=== PATIENT | female | born 1945 | race African-American/Black ===

== ENCOUNTER 2017-12-23 05:19 | Inpatient (IN) ==
--- NOTE | 2017-12-23 06:36 | XR ---
EXAM DATE: 12/23/2017 6:17 AM EDT AGE/SEX: 72 years / Female INDICATIONS: Chest pain. CLINICAL DATA: This is the patient's initial encounter. Patient reports that signs and symptoms have been present for 1 day and indicates a pain score of 5/10. MEDICAL/SURGICAL HISTORY: None. None. COMPARISON: No prior exams available for comparison. FINDINGS: Diffuse interstitial prominence with left lower lung zone airspace disease and likely trace pleural e ffusion. Cardiac lead is enlarged with indistinct central probably vascularity. Osseous structures ar e intact. CONCLUSION: 1. Cardiomegaly with mild positive fluid balance. 2. Left lower lobe airspace disease and likely trace left pleural effusion. Electronically signed by: Abel Ch MD 12/23/2017 6:35 AM EDT
[2017-12-23 06:45] LABS: Alkaline Phosphatase 98 U/L (45-117); Troponin I 0.05 ng/mL (0.02-0.05)
[2017-12-23 06:45] LABS: Baso % (Auto) 0.2 % (0.0-2.0); Eos % (Auto) 0.7 % (0.0-4.0); Hematocrit 42.8 % (35.0-46.0); Hemoglobin 13.3 gm/dL (11.6-15.3); Lymph # (Auto) 1.3 th/mm3 (1.0-4.8); Lymph % (Auto) 18.1 % (9.0-44.0); Mean Corpuscular Hemoglobin 29.4 pg (27.0-34.0); Mean Corpuscular Volume 94.8 fL (80.0-100.0); Mean Platelet Volume 10.5 fL (7.0-11.0); Mono # (Auto) 0.6 th/mm3 (0.0-0.9); Mono % (Auto) 8.2 % (0.0-8.0); Neut # (Auto) 5.3 th/mm3 (1.8-7.7); Neut % (Auto) 72.8 % (16.0-70.0); Platelet Count 164 th/mm3 (150-450); Red Blood Count 4.52 mil/mm3 (4.00-5.30); Red Cell Distribution Width 15.3 % (11.6-17.2); White Blood Count 7.2 th/mm3 (4.0-11.0)
[2017-12-23 06:50] LABS: Alanine Aminotransferase 60 U/L (10-53); Albumin 3.4 g/dL (3.4-5.0); Anion Gap 2 meq/L (5-15); Blood Urea Nitrogen 13 mg/dL (7-18); Calcium 8.4 mg/dL (8.5-10.1); Carbon Dioxide 35.7 meq/L (21.0-32.0); Chloride 101 meq/L (98-107); Glomerular Filtration Rate 55 mL/min (>89); Glucose,Random 139 mg/dL (74-106); Lipase 133 U/L (73-393); Potassium 5.9 meq/L (3.5-5.1); Sodium 139 meq/L (136-145)
[2017-12-23 06:51] LABS: Aspartate Aminotransferase 66 U/L (15-37)
--- NOTE | 2017-12-23 06:52 | ED ---
HPI General Chief Complaint: Chest Pain Stated Complaint: Chest pain Time Seen by Provider: 12/23/17 05:27 Source: patient Mode of arrival: ambulatory Limitations: no limitations History of Present Illness HPI narrative: 72-year-old woman with a history of right sided costal margin pain since October of this year. Pain has been intermittent and waxes and wanes in severity. It is typically worse with movement and inspiration. It is better if she holds still and holds the painful area with her hand. No shortness of breath or cough associated with this pain. No hemoptysis. No lower extremity swelling or pain. No prior DVT or PE. Patient was seen most recently at [facility] for the same symptoms last night because they were so bad they were causing her to lose sleep. She had a CT of some part of her body that she cannot recall and other testing prior to being told that she had pleurisy. She was given a small white pill which helped the pain and made her sleepy. When she got home from the emergency department at [place] she went to sleep. She was awoken with nausea and vomited. She called her son who then called 911 and paramedics transferred her here. The nausea has since resolved. She still has the pain at this time. She was given a prescription for hydrocodone/acetaminophen [place]. Related Data Home Medications Medication Instructions Recorded Confirmed amlodipine 10 mg PO DAILY 12/23/17 12/23/17 bumetanide 2 mg PO DAILY 12/23/17 12/23/17 bupropion HCl [Wellbutrin XL] 300 mg PO QAM 12/23/17 12/23/17 meloxicam [Mobic] 15 mg PO DAILY 12/23/17 12/23/17 montelukast 10 mg PO QPM 12/23/17 12/23/17 pramipexole [Mirapex] 0.25 mg PO QPM 12/23/17 12/23/17 prednisone 5 mg PO BID 12/23/17 12/23/17 Allergies Allergy/AdvReac Type Severity Reaction Status Date / Time aspirin [From Percodan] Allergy Severe Hallucinati Verified 12/23/17 05:38 ons oxycodone [From Percodan] Allergy Severe Hallucinati Verified 12/23/17 05:38 ons Review of Systems ROS: all other systems reviewed are negative [facility] Medical History Medical History Asthma (Acute) CHF (congestive heart failure) (Acute) COPD (chronic obstructive pulmonary disease) (Acute) Cataract (Acute) Diabetes (Acute) H/O: hysterectomy (Acute) Hypertension (Acute) Surgical History Surgical History History of orthopedic surgery (Acute) Social History Social History Substance History: No History of Abuse Smoking Status: Never smoker How Often Do You Have a Drink Containing Alcohol: Monthly or less Immunization History Tetanus Immunization: >5 Years Hx Influenza Vaccine This Season: No Exam Narrative Exam Narrative: GENERAL: Morbidly obese 72-year-old woman lying on exam stretcher in no apparent distress. Her adult son is seated in chair next to her stretcher. SKIN: Focused skin assessment warm/dry. HEAD: Atraumatic. Normocephalic. EYES: Pupils equal and round. No scleral icterus. No injection or drainage. ENT: No nasal bleeding or discharge. Mucous membranes pink and moist. NECK: Trachea midline. No JVD. CARDIOVASCULAR: Regular rate and rhythm. No murmur appreciated. RESPIRATORY: No accessory muscle use. Clear to auscultation. Breath sounds equal bilaterally. GASTROINTESTINAL: Abdomen soft, Mild tenderness in a specific area of the right costal margin, No rebound tenderness or guarding, nondistended. Obese abdomen. MUSCULOSKELETAL: No obvious deformities. No clubbing. No cyanosis. No edema. NEUROLOGICAL: Awake and alert. No obvious cranial nerve deficits. Motor grossly within normal limits. Normal speech. PSYCHIATRIC: Appropriate mood and affect; insight and judgment normal. Course Initial Documented Vital Signs Pulse Rate 98 H 12/23/17 05:21 Respiratory Rate 20 12/23/17 05:21 Blood Pressure 133/76 12/23/17 05:21 Pulse Oximetry 98 12/23/17 05:21 Last Documented Vital Signs Pulse Rate 98 H 12/23/17 07:54 Respiratory Rate 16 12/23/17 07:54 Blood Pressure 156/97 H 12/23/17 07:54 Pulse Oximetry 96 12/23/17 07:54 Sign Out Sign Out Data: Patient Sign Out occurred on 12/23/17 at 07:43. Patient's care was discussed, and care was transferred from Hossein Eng MD to Sal Ramirez MD. Sign Out Comment: Signed out to oncoming day shift physician. Patient is pending delta troponin. Also awaiting requested records from [facility], which had not yet arrived. Last updated by Hossein Eng MD at 12/23/17 07:25 Post-Handoff Eval: I have received fluoroscopy hospital records which show that the patient has had a CTA done which was negative for PE. Her lab work initially showed a troponin of 0.05. A second troponin elevated up to 0.1. At this point, considering her chest discomfort, plan would be to admit her for further evaluation. Case is discussed with family practice resident service for admission. Ultrasound shows a gallstone but no signs of acute cholecystitis or biliary obstruction. Medical Decision Making MDM Narrative Medical decision making narrative: 72-year-old woman who presents for evaluation of vomiting after she was given a pain medication outside emergency department for her chronic right-sided pain. She has been evaluated twice before in emergency departments for this discomfort. Last night she was diagnosed with pleurisy at [facility]. She claims she had a CT scan performed and laboratory testing. I believe she was given hydrocodone in the emergency department for pain and that this is the precipitant of the vomiting. I do not think that an acute intra-abdominal or intrathoracic cause is likely explanation for her symptoms. Medical Screen Exam Complete: Yes Emergency Medical Condition: Yes Medical Records Medical records reviewed: Yes I reviewed the patient's medical records. Lab Data Lab results reviewed: Yes I reviewed the patient's lab results. Result diagrams: 12/23/17 06:30 12/23/17 09:05 Lab Results 12/23/17 12/23/17 12/23/17 Range/Units 06:00 06:30 09:05 WBC 7.2 (4.0-11.0) th/mm3 RBC 4.52 (4.00-5.30) mil/mm3 Hgb 13.3 (11.6-15.3) gm/dL Hct 42.8 (35.0-46.0) % MCV 94.8 (80.0-100.0) fL MCH 29.4 (27.0-34.0) pg MCHC 31.0 L (32.0-36.0) % RDW 15.3 (11.6-17.2) % Plt Count 164 (150-450) th/mm3 MPV 10.5 (7.0-11.0) fL Prelim Diff (Auto) Slide review pending Neut % (Auto) 72.8 H (16.0-70.0) % Lymph % (Auto) 18.1 (9.0-44.0) % [place] % (Auto) 8.2 H (0.0-8.0) % Eos % (Auto) 0.7 (0.0-4.0) % Baso % (Auto) 0.2 (0.0-2.0) % Neut # (Auto) 5.3 (1.8-7.7) th/mm3 Lymph # (Auto) 1.3 (1.0-4.8) th/mm3 [place] # (Auto) 0.6 (0.0-0.9) th/mm3 Eos # (Auto) 0.0 (0.0-0.4) th/mm3 Baso # (Auto) 0.0 (0.0-0.2) th/mm3 WBC Differential . Diff Scan Auto diff confirmed Differential Comment . Platelet Estimate Normal (Normal) Platelet Morphology Normal (Normal) D-Dimer Quant (PE/DVT) (0.00-0.50) mg/L FEU Sodium 139 140 (136-145) meq/L Potassium 5.9 H 5.1 D (3.5-5.1) meq/L Chloride 101 101 (98-107) meq/L Carbon Dioxide 35.7 H 37.9 H (21.0-32.0) meq/L Anion Gap 2 L 1 L (5-15) meq/L BUN 13 12 (7-18) mg/dL Creatinine 1.17 H 1.12 H (0.50-1.00) mg/dL Estimated GFR 55 L 58 L (>89) mL/min Random Glucose 139 H 121 H (74-106) mg/dL Calcium 8.4 L 8.5 (8.5-10.1) mg/dL Total Bilirubin 0.4 (0.2-1.0) mg/dL AST 66 H (15-37) U/L ALT 60 H (10-53) U/L Alkaline Phosphatase 98 (45-117) U/L Troponin I 0.05 (0.02-0.05) ng/mL Total Protein 8.0 (6.4-8.2) g/dL Albumin 3.4 (3.4-5.0) g/dL Lipase 133 (73-393) U/L 12/23/17 12/23/17 Range/Units 09:05 10:15 WBC (4.0-11.0) th/mm3 RBC (4.00-5.30) mil/mm3 Hgb (11.6-15.3) gm/dL Hct (35.0-46.0) % MCV (80.0-100.0) fL MCH (27.0-34.0) pg MCHC (32.0-36.0) % RDW (11.6-17.2) % Plt Count (150-450) th/mm3 MPV (7.0-11.0) fL Prelim Diff (Auto) Neut % (Auto) (16.0-70.0) % Lymph % (Auto) (9.0-44.0) % [place] % (Auto) (0.0-8.0) % Eos % (Auto) (0.0-4.0) % Baso % (Auto) (0.0-2.0) % Neut # (Auto) (1.8-7.7) th/mm3 Lymph # (Auto) (1.0-4.8) th/mm3 [place] # (Auto) (0.0-0.9) th/mm3 Eos # (Auto) (0.0-0.4) th/mm3 Baso # (Auto) (0.0-0.2) th/mm3 WBC Differential Diff Scan Differential Comment Platelet Estimate (Normal) Platelet Morphology (Normal) D-Dimer Quant (PE/DVT) 0.75 H (0.00-0.50) mg/L FEU Sodium (136-145) meq/L Potassium (3.5-5.1) meq/L Chloride (98-107) meq/L Carbon Dioxide (21.0-32.0) meq/L Anion Gap (5-15) meq/L BUN (7-18) mg/dL Creatinine (0.50-1.00) mg/dL Estimated GFR (>89) mL/min Random Glucose (74-106) mg/dL Calcium (8.5-10.1) mg/dL Total Bilirubin (0.2-1.0) mg/dL AST (15-37) U/L ALT (10-53) U/L Alkaline Phosphatase (45-117) U/L Troponin I 0.10 H (0.02-0.05) ng/mL Total Protein (6.4-8.2) g/dL Albumin (3.4-5.0) g/dL Lipase (73-393) U/L Imaging Data Radiologist's impression: Chest X-Ray 12/23/17 05:54 CONCLUSION: 1. Cardiomegaly with mild positive fluid balance. 2. Left lower lobe airspace disease and likely trace left pleural effusion. Gallbladder Ultrasound 12/23/17 07:09 CONCLUSION: 1. Shadowing from the gallbladder most characteristic of a large calcified gallstone. 2. Hyperechoic heterogeneous hepatic echotexture characteristic of hepatocellular disease. 3. No evidence of biliary obstruction. ECG Data Attestation: I personally reviewed and interpreted this ECG as follows: Discharge Plan Discharge Disposition Patient Disposition: 30 Still Patient Discharge Condition Condition: Stable Discharge Details Anticipated Discharge Date: 12/23/17 Diagnosis: Chest pain, Elevated troponin Physicians Team ED Provider: Sal Ramirez Primary Care Provider: UNKNOWN, Rxs /Orders / Referrals /Forms Prescriptions: No Action bumetanide 2 mg Tablet 2 mg PO DAILY RF: 0 meloxicam [Mobic] 15 mg Tablet 15 mg PO DAILY RF: 0 prednisone 5 mg Tablet 5 mg PO BID RF: 0 amlodipine 10 mg Tablet 10 mg PO DAILY RF: 0 pramipexole [Mirapex] 0.25 mg Tablet 0.25 mg PO QPM RF: 0 montelukast 10 mg Tablet 10 mg PO QPM RF: 0 bupropion HCl [Wellbutrin XL] 300 mg Tablet Extended Release 24 Hr 300 mg PO QAM RF: 0 Discharge Instructions Patient Printed Instructions: Chest Pain (ED) Discharge Interventions Interventions: Vital Signs Last Done: 12/23/17 05:28 Status ED Status: With Doctor
[2017-12-23 07:31] LABS: Platelet Estimate Normal (Normal); Platelet Morphology Normal (Normal)
--- NOTE | 2017-12-23 09:13 | US ---
EXAM DATE: 12/23/2017 8:58 AM EDT AGE/SEX: 72 years / Female INDICATIONS: Right upper quadrant pain. CLINICAL DATA: This is the patient's initial encounter. Patient reports that signs and symptoms have been present for 1 day and indicates a pain score of 10/10. MEDICAL/SURGICAL HISTORY: Diabetes. Congestive heart failure. Hypertension. Asthma. COPD. Ca taract. Hysterectomy. Orthopedic surgery. COMPARISON: No prior exams available for comparison. MEASUREMENTS: Liver:__ 15.2 cm. Common Bile Duct:__ 4mm. FINDINGS: Liver: Increased echotexture without focal lesion or ductal dilation. Portal Vein: Hepatopedal flow seen in portal vein. Common Duct: No intraluminal mass or stone visualized. Gallbladder: Extensive shadowing is identified from the gallbladder. There appears to be a large jasper cified gallstone Pancreas: Not well visualized. Right Kidney: Increased echotexture. No mass or hydronephrosis. Other: CONCLUSION: 1. Shadowing from the gallbladder most characteristic of a large calcified gallstone. 2. Hyperechoic heterogeneous hepatic echotexture characteristic of hepatocellular disease. 3. No evidence of biliary obstruction. Electronically signed by: Garcia Pena MD 12/23/2017 9:12 AM EDT
[2017-12-23 09:35] LABS: Calcium 8.5 mg/dL (8.5-10.1); Carbon Dioxide 37.9 meq/L (21.0-32.0); Potassium 5.1 meq/L (3.5-5.1)
[2017-12-23 11:55] LABS: Bilirubin,Urine Negative (Negative); Clarity,Urine Clear (Clear); Color,Urine Yellow (Yellw/Straw); Glucose,Urine (UA) Negative (Negative); Leukocyte Esterase,Urine Negative (Negative); Nitrite,Urine Negative (Negative)
[2017-12-23 11:58] LABS: Specific Gravity,Urine 1.034 (1.002-1.035)
--- NOTE | 2017-12-23 12:01 | P.HPFP ---
History of Present Illness Primary Care Physician: UNKNOWN <SegunDanielito Jody - 12/23/17 15:42> UNKNOWN <Madiha Pruett 12/23/17 12:01> History of Present Illness: Ms. Prasad is a 72yof who presents for evaluation of R side/flank pain. Pain started November 06 with minimal "easing up" since. Pain worse with movement and deep breathing. Nothing seems to make it better. No association with food. Patient was seen at [facility] last night, CT was performed with no evidence of PE and diagnosed with MSK pain. Reports that this morning she did not "feel well". Vomited once. Confused about place and time today. Incontinent of urine, she reports this is a chronic issue and has not changed recently. Denies hematuria, dysuria. Reports subjective fever and chills. Leg swelling and SOB worsening over the past year, no acute worsening Requiring 2L O2 at home at all times. 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 Fernandez Manager Decision Support: Dr Swartz PMH: CHF Cataracts DM HTN Hyperlipidemia COPD Meds: SSI (home health) ASA Amlodipine 10mg Bumex 4mg Singular 10mg Buproprion Meloxicam Pramipexole Simvastatin Prednisone 5mg daily Advair Ventolin Duoneb FMH: Non contributory Sx: Hysterectomy Bunion surgery Social: Tobacco never smoker EtOH none Recreational Drugs none <Mdaiha Pruett 12/23/17 14:41> - Diagnosis (1) Right flank pain (2) Elevated troponin (3) BRANDON (acute kidney injury) (4) CHF (congestive heart failure) (5) Hyperkalemia (6) COPD (chronic obstructive pulmonary disease) (7) Hyperlipidemia (8) Diabetes type 2, controlled (9) Hypertension (10) Nutrition, metabolism, and development symptoms <Danielito Cast Jody 12/23/17 15:42> (1) Right flank pain (2) Elevated troponin (3) BRANDON (acute kidney injury) (4) CHF (congestive heart failure) (5) Hyperkalemia (6) COPD (chronic obstructive pulmonary disease) (7) Hyperlipidemia (8) Diabetes type 2, controlled (9) Hypertension (10) Nutrition, metabolism, and development symptoms <Madiha Pruett 12/23/17 13:34> Review of Systems Constitutional: Reports chills, Reports fever(s) (Subjective), Denies lack of energy <Madiha rPuett 12/23/17 14:41> Cardiovascular: Reports leg swelling, Reports shortness of breath with activity , Reports shortness of breath when lying down, Denies chest pain, Denies fainting, Denies lightheadedness <SebleMadiha Rodriguez 12/23/17 14:41> Respiratory: Reports shortness of breath, Reports shortness of breath with activity, Denies cough <SebleMadiha Rodriguez 12/23/17 14:41> Gastrointestinal: Reports abdominal pain, Reports nausea, Reports vomiting, Denies change in stools, Denies coffee ground vomit, Denies constipation, Denies incontinent of stools <SebleMadiha Jennifer 12/23/17 14:41> Genitourinary: Reports urinary incontinence, Reports urinary urgency, Denies blood in urine, Denies painful urination, Denies pelvic pain <SebleMadiha Jennifer 12/23/17 14:41> Musculoskeletal: Reports back pain <SebleMadiha Jennifer 12/23/17 14:41> Neurologic: Reports confusion, Reports headache(s) <SebleMadiha Rodriguez 12/23/17 14:41> PMFSH - History History Provided By: Patient <Madiha Pruett 12/23/17 12:01> - Medical History Medical History: Medical History (Last Reviewed 12/23/17 @ 08:07 by Hossein Eng MD) Asthma CHF (congestive heart failure) COPD (chronic obstructive pulmonary disease) Cataract Diabetes H/O: hysterectomy Hypertension <Danielito Cast 12/23/17 15:42> Medical History (Last Reviewed 12/23/17 @ 08:07 by Hossein Eng MD) Asthma CHF (congestive heart failure) COPD (chronic obstructive pulmonary disease) Cataract Diabetes H/O: hysterectomy Hypertension <SebleMadiha E 12/23/17 12:01> - Surgical History Surgical History: Surgical History (Last Reviewed 12/23/17 @ 08:07 by Hossein Eng MD) History of orthopedic surgery <Danielito Cast 12/23/17 15:42> Surgical History (Last Reviewed 12/23/17 @ 08:07 by Hossein Eng MD) History of orthopedic surgery <Sandip Pruettlincoln Rodriguez 12/23/17 12:01> - Tobacco History Smoking Status: Never smoker <Sandip Pruettlincoln Rodriguez 12/23/17 12:01> - Alcohol History How Often Do You Have a Drink Containing Alcohol: Monthly or less <SebleSandiplincoln Rodriguez 12/23/17 12:01> - Substance Use History Substance History: No History of Abuse <SebleMadiha galo 12/23/17 12:01> - Immunization History Tetanus Immunization: >5 Years <Madiha Pruett 12/23/17 12:01> Hx Influenza Vaccine This Season: No <SebleSandipMadiha E 12/23/17 12:01> Medications and Allergies Allergies Allergy/AdvReac Type Severity Reaction Status Date / Time aspirin [From Percodan] Allergy Severe Hallucinati Verified 12/23/17 05:38 ons oxycodone [From Percodan] Allergy Severe Hallucinati Verified 12/23/17 05:38 ons <Danielito Cast 12/23/17 15:42> Home Medications Medication Instructions Recorded Confirmed Type amlodipine 10 mg PO DAILY 12/23/17 12/23/17 History bumetanide 2 mg PO DAILY 12/23/17 12/23/17 History bupropion HCl [Wellbutrin XL] 300 mg PO QAM 12/23/17 12/23/17 History meloxicam [Mobic] 15 mg PO DAILY 12/23/17 12/23/17 History montelukast 10 mg PO QPM 12/23/17 12/23/17 History pramipexole [Mirapex] 0.25 mg PO QPM 12/23/17 12/23/17 History prednisone 5 mg PO BID 12/23/17 12/23/17 History Danielito Gates 12/23/17 15:42> Active Medications: Active Medications Acetaminophen (Tylenol) 650 mg PO Q6HR PRN PRN Reason: PAIN SCALE 1 TO 2 Al Hydroxide/Mg Hydroxide (Milk Of Magndionne Liq) 30 ml PO Q12H PRN PRN Reason: Mild Constipation Albuterol (Albuterol Neb (Prn)) 2.5 mg NEB Q4HR NEB PRN PRN Reason: SHORTNESS OF BREATH Albuterol (Duoneb Neb (Prn)) 1 ampul NEB Q6HR NEB PRN PRN Reason: SHORTNESS OF BREATH Amlodipine Besylate (Norvasc) 10 mg PO DAILY [facility] Last Admin: 12/23/17 13:57 Dose: 10 mg Atorvastatin Calcium (Lipitor) 10 mg PO DAILY [facility] Bupropion HCl (Wellbutrin Sr) 150 mg PO BID [facility] Last Admin: 12/23/17 13:57 Dose: 150 mg Dextrose (D50w Vial) 50 ml IV.PUSH UNSCH PRN PRN Reason: PER HYPOGLYCEMIA PROTOCOL Enoxaparin Sodium (Lovenox Inj) 40 mg SQ DAILY [facility] Glucagon (Glucagon Inj) 1 mg OTHER PRN PRN PRN Reason: for Hypoglycemia Protocol Insulin Aspart (Novolog Insulin Correctional Sugar Inj) 0 unit SQ ACHS [facility]; Protocol Meloxicam (Mobic) 15 mg PO DAILY [facility] Last Admin: 12/23/17 13:56 Dose: 15 mg Montelukast Sodium (Singulair) 10 mg PO QPM [facility] Pramipexole Dihydrochloride (Mirapex) 0.25 mg PO QPM [facility] Prednisone (Deltasone) 5 mg PO BID [facility] Sennosides (Senokot) 17.2 mg PO Q12H PRN PRN Reason: Moderate Constipation Sodium Chloride (Ns Flush) 2 ml IV.FLUSH UNSCH PRN PRN Reason: FLUSH AFTER USING IV ACCESS <Danielito Cast L - 12/23/17 15:42> Active Medications Al Hydroxide/Mg Hydroxide (Milk Of Magndionne Liq) 30 ml PO Q12H PRN PRN Reason: Mild Constipation Sennosides (Senokot) 17.2 mg PO Q12H PRN PRN Reason: Moderate Constipation Sodium Chloride (Ns Flush) 2 ml IV.FLUSH UNSCH PRN PRN Reason: FLUSH AFTER USING IV ACCESS <Madiha Pruett E - 12/23/17 12:01> Exam Vital signs: Vital Signs 12/23/17 05:21 12/23/17 05:28 12/23/17 07:36 Temperature Pulse Rate 98 H 98 H 94 H Respiratory Rate 20 20 20 Blood Pressure 133/76 133/76 120/68 Pulse Oximetry 98 96 94 L 12/23/17 07:54 12/23/17 13:42 12/23/17 14:36 Temperature 97.9 F Pulse Rate 98 H 94 H Respiratory Rate 16 18 Blood Pressure 156/97 H 121/86 Pulse Oximetry 96 4 L Intake & Output 12/22/17 12/23/17 12/23/17 18:59 06:59 18:59 Weight 117.934 kg <Danielito Cast L - 12/23/17 15:42> Vital Signs 12/23/17 05:21 12/23/17 05:28 12/23/17 07:36 Pulse Rate 98 H 98 H 94 H Respiratory Rate 20 20 20 Blood Pressure 133/76 133/76 120/68 Pulse Oximetry 98 96 94 L 12/23/17 07:54 Pulse Rate 98 H Respiratory Rate 16 Blood Pressure 156/97 H Pulse Oximetry 96 Intake & Output 12/22/17 12/23/17 12/23/17 18:59 06:59 18:59 Weight 117.934 kg <Madiha Pruett - 12/23/17 12:01> Narrative: GENERAL: Obese female lying in bed on nasal cannula. No acute distress. HEAD: Normocephalic. EYES: Pupils equal and round and reactive. No scleral icterus. Watery bilaterally. ENT: No nasal bleeding or discharge. Mucous membranes pink and dry. No oral lesions seen. Poor dentition NECK: No JVD. CARDIOVASCULAR: Regular rate and rhythm. No murmurs heard. Heart sounds distant but likely due to patient's body habitus RESPIRATORY: No accessory muscle use. Clear to auscultation. Breath sounds equal bilaterally. GASTROINTESTINAL: Abdomen soft, no guarding. Large ventral hernia present nontender to palpation. Negative Hou sign. Moderate pain to palpation of right costal margin extending to right flank. MUSCULOSKELETAL: Extremities without clubbing, cyanosis. Pedal edema bilaterally, nonpitting NEUROLOGICAL: Awake and alert. No obvious cranial nerve deficits. Motor grossly within normal limits. Normal speech. Oriented 3. <Madiha Pruett - 12/23/17 14:41> Results - Labs Result diagrams: 12/23/17 06:30 12/23/17 09:05 <Danielito Cast L - 12/23/17 15:42> Abnormal lab results 12/23/17 12/23/17 12/23/17 Range/Units 06:00 06:30 06:30 MCHC 31.0 L (32.0-36.0) % Neut % (Auto) 72.8 H (16.0-70.0) % Spencer % (Auto) 8.2 H (0.0-8.0) % D-Dimer Quant (PE/DVT) (0.00-0.50) mg/L FEU Potassium 5.9 H (3.5-5.1) meq/L Carbon Dioxide 35.7 H (21.0-32.0) meq/L Anion Gap 2 L (5-15) meq/L Creatinine 1.17 H (0.50-1.00) mg/dL Estimated GFR 55 L (>89) mL/min Random Glucose 139 H (74-106) mg/dL Calcium 8.4 L (8.5-10.1) mg/dL AST 66 H (15-37) U/L ALT 60 H (10-53) U/L Troponin I (0.02-0.05) ng/mL B-Natriuretic Peptide 236 H (0-100) pg/mL Urine Protein (Neg-Trace) mg/dL Amorphous Sediment (None) /hpf Urine Mucus (Occasional) /lpf 12/23/17 12/23/17 12/23/17 Range/Units 09:05 09:05 10:15 MCHC (32.0-36.0) % Neut % (Auto) (16.0-70.0) % Spencer % (Auto) (0.0-8.0) % D-Dimer Quant (PE/DVT) 0.75 H (0.00-0.50) mg/L FEU Potassium (3.5-5.1) meq/L Carbon Dioxide 37.9 H (21.0-32.0) meq/L Anion Gap 1 L (5-15) meq/L Creatinine 1.12 H (0.50-1.00) mg/dL Estimated GFR 58 L (>89) mL/min Random Glucose 121 H (74-106) mg/dL Calcium (8.5-10.1) mg/dL AST (15-37) U/L ALT (10-53) U/L Troponin I 0.10 H (0.02-0.05) ng/mL B-Natriuretic Peptide (0-100) pg/mL Urine Protein (Neg-Trace) mg/dL Amorphous Sediment (None) /hpf Urine Mucus (Occasional) /lpf 12/23/17 Range/Units 10:52 MCHC (32.0-36.0) % Neut % (Auto) (16.0-70.0) % Spencer % (Auto) (0.0-8.0) % D-Dimer Quant (PE/DVT) (0.00-0.50) mg/L FEU Potassium (3.5-5.1) meq/L Carbon Dioxide (21.0-32.0) meq/L Anion Gap (5-15) meq/L Creatinine (0.50-1.00) mg/dL Estimated GFR (>89) mL/min Random Glucose (74-106) mg/dL Calcium (8.5-10.1) mg/dL AST (15-37) U/L ALT (10-53) U/L Troponin I (0.02-0.05) ng/mL B-Natriuretic Peptide (0-100) pg/mL Urine Protein 30 H (Neg-Trace) mg/dL Amorphous Sediment Rare H (None) /hpf Urine Mucus Rare H (Occasional) /lpf Short CBC 12/23/17 Range/Units 06:30 WBC 7.2 (4.0-11.0) th/mm3 Hgb 13.3 (11.6-15.3) gm/dL Hct 42.8 (35.0-46.0) % Plt Count 164 (150-450) th/mm3 [facility] 12/23/17 12/23/17 06:00 09:05 Sodium 139 140 Potassium 5.9 H 5.1 D Chloride 101 101 Carbon Dioxide 35.7 H 37.9 H BUN 13 12 Creatinine 1.17 H 1.12 H Calcium 8.4 L 8.5 Cardiac Enzymes 12/23/17 12/23/17 Range/Units 06:00 10:15 Troponin I 0.05 0.10 H (0.02-0.05) ng/mL Liver Function 12/23/17 Range/Units 06:00 Total Bilirubin 0.4 (0.2-1.0) mg/dL AST 66 H (15-37) U/L ALT 60 H (10-53) U/L Alkaline Phosphatase 98 (45-117) U/L Albumin 3.4 (3.4-5.0) g/dL Urine 12/23/17 Range/Units 10:52 Urine Color Yellow (Yellw/Straw) Urine Clarity Clear (Clear) Urine pH 5.0 (5.0-8.5) Ur Specific [place] 1.034 (1.002-1.035) Urine Protein 30 H (Neg-Trace) mg/dL Urine Glucose (UA) Negative (Negative) mg/dL <Danielito Cast L - 12/23/17 15:42> Abnormal lab results 12/23/17 12/23/17 12/23/17 Range/Units 06:00 06:30 09:05 MCHC 31.0 L (32.0-36.0) % Neut % (Auto) 72.8 H (16.0-70.0) % Spencer % (Auto) 8.2 H (0.0-8.0) % D-Dimer Quant (PE/DVT) (0.00-0.50) mg/L FEU Potassium 5.9 H (3.5-5.1) meq/L Carbon Dioxide 35.7 H 37.9 H (21.0-32.0) meq/L Anion Gap 2 L 1 L (5-15) meq/L Creatinine 1.17 H 1.12 H (0.50-1.00) mg/dL Estimated GFR 55 L 58 L (>89) mL/min Random Glucose 139 H 121 H (74-106) mg/dL Calcium 8.4 L (8.5-10.1) mg/dL AST 66 H (15-37) U/L ALT 60 H (10-53) U/L Troponin I (0.02-0.05) ng/mL 12/23/17 12/23/17 Range/Units 09:05 10:15 MCHC (32.0-36.0) % Neut % (Auto) (16.0-70.0) % Spencer % (Auto) (0.0-8.0) % D-Dimer Quant (PE/DVT) 0.75 H (0.00-0.50) mg/L FEU Potassium (3.5-5.1) meq/L Carbon Dioxide (21.0-32.0) meq/L Anion Gap (5-15) meq/L Creatinine (0.50-1.00) mg/dL Estimated GFR (>89) mL/min Random Glucose (74-106) mg/dL Calcium (8.5-10.1) mg/dL AST (15-37) U/L ALT (10-53) U/L Troponin I 0.10 H (0.02-0.05) ng/mL Short CBC 12/23/17 Range/Units 06:30 WBC 7.2 (4.0-11.0) th/mm3 Hgb 13.3 (11.6-15.3) gm/dL Hct 42.8 (35.0-46.0) % Plt Count 164 (150-450) th/mm3 BMP 12/23/17 12/23/17 06:00 09:05 Sodium 139 140 Potassium 5.9 H 5.1 D Chloride 101 101 Carbon Dioxide 35.7 H 37.9 H BUN 13 12 Creatinine 1.17 H 1.12 H Calcium 8.4 L 8.5 Cardiac Enzymes 12/23/17 12/23/17 Range/Units 06:00 10:15 Troponin I 0.05 0.10 H (0.02-0.05) ng/mL Liver Function 12/23/17 Range/Units 06:00 Total Bilirubin 0.4 (0.2-1.0) mg/dL AST 66 H (15-37) U/L ALT 60 H (10-53) U/L Alkaline Phosphatase 98 (45-117) U/L Albumin 3.4 (3.4-5.0) g/dL <Madiha Pruett - 12/23/17 12:01> - Imaging Impressions Abdomen/Pelvis CT 12/23/17 00:00 CONCLUSION: 1. Bibasilar consolidating airspace disease within the lower lobes. 2. 2.9 cm calcified gallstone without evidence of biliary obstructive disease or acute inflammation. 3. Multiple bilateral renal calculi without evidence of hydronephrosis. 4. Uncomplicated colonic diverticulosis. 5. Large ventral hernia containing both small and large intestinal loops. 6. Status post hysterectomy. Chest X-Ray 12/23/17 05:54 CONCLUSION: 1. Cardiomegaly with mild positive fluid balance. 2. Left lower lobe airspace disease and likely trace left pleural effusion. Gallbladder Ultrasound 12/23/17 07:09 CONCLUSION: 1. Shadowing from the gallbladder most characteristic of a large calcified gallstone. 2. Hyperechoic heterogeneous hepatic echotexture characteristic of hepatocellular disease. 3. No evidence of biliary obstruction. <Danielito Cast - 12/23/17 15:42> Impressions Chest X-Ray 12/23/17 05:54 CONCLUSION: 1. Cardiomegaly with mild positive fluid balance. 2. Left lower lobe airspace disease and likely trace left pleural effusion. Gallbladder Ultrasound 12/23/17 07:09 CONCLUSION: 1. Shadowing from the gallbladder most characteristic of a large calcified gallstone. 2. Hyperechoic heterogeneous hepatic echotexture characteristic of hepatocellular disease. 3. No evidence of biliary obstruction. <Madiha Pruett - 12/23/17 12:01> Caprini VTE Risk Assessment Caprini VTE Risk Assessment: Moderate/High Risk (score >= 2) <Madiha Pruett - 12/23/17 14:41> Caprini Risk Assessment Model: Point Value = 1 Point Value = 2 Point Value = 3 Point Value = 5 Age 41-60 Minor surgery BMI > 25 kg/m2 Swollen legs Varicose veins or History of unexplained or recurrent spontaneous Oral contraceptives or hormone replacement Sepsis (< 1 month) Serious lung disease, including pneumonia (< 1 month) Abnormal pulmonary function Acute myocardial infarction Congestive heart failure (< 1 month) History of inflammatory bowel disease Medical patient at bed rest Age 61-74 Arthroscopic surgery Major open surgery (> 45 min) Laparoscopic surgery (> 45 min) Malignancy Confined to bed (> 72 hours) Immobilizing plaster cast Central venous access Age >= 75 History of VTE Family history of VTE Factor V Leiden Prothrombin [id number] Lupus anticoagulant Anticardiolipin antibodies Elevated serum homocysteine Heparin-induced thrombocytopenia Other congenital or acquired thrombophilia Stroke (< 1 month) Elective arthroplasty Hip, pelvis, or leg fracture Acute spinal cord injury (< 1 month) <Danielito Cast - 12/23/17 15:42> Point Value = 1 Point Value = 2 Point Value = 3 Point Value = 5 Age 41-60 Minor surgery BMI > 25 kg/m2 Swollen legs Varicose veins or History of unexplained or recurrent spontaneous Oral contraceptives or hormone replacement Sepsis (< 1 month) Serious lung disease, including pneumonia (< 1 month) Abnormal pulmonary function Acute myocardial infarction Congestive heart failure (< 1 month) History of inflammatory bowel disease Medical patient at bed rest Age 61-74 Arthroscopic surgery Major open surgery (> 45 min) Laparoscopic surgery (> 45 min) Malignancy Confined to bed (> 72 hours) Immobilizing plaster cast Central venous access Age >= 75 History of VTE Family history of VTE Factor V Leiden Prothrombin [id number] Lupus anticoagulant Anticardiolipin antibodies Elevated serum homocysteine Heparin-induced thrombocytopenia Other congenital or acquired thrombophilia Stroke (< 1 month) Elective arthroplasty Hip, pelvis, or leg fracture Acute spinal cord injury (< 1 month) <Madiha Pruett E - 12/23/17 12:01> Prophylaxis Regimen: Total Risk Factor Score Risk Level Prophylaxis Regimen 0-1 Low Early ambulation 2 Moderate Order ONE of the following: *Sequential Compression Device (SCD) *Heparin 5000 units SQ BID 3-4 Higher Order ONE of the following medications: *Heparin 5000 units SQ TID *Enoxaparin/Lovenox 40 mg SQ daily (WT < 150 kg, CrCl > 30 mL/min) *Enoxaparin/Lovenox 30 mg SQ daily (WT < 150 kg, CrCl > 10-29 mL/min) *Enoxaparin/Lovenox 30 mg SQ BID (WT < 150 kg, CrCl > 30 mL/min) AND/OR *Sequential Compression Device (SCD) 5 or more Highest Order ONE of the following medications: *Heparin 5000 units SQ TID (Preferred with Epidurals) *Enoxaparin/Lovenox 40 mg SQ daily (WT < 150 kg, CrCl > 30 mL/min) *Enoxaparin/Lovenox 30 mg SQ daily (WT < 150 kg, CrCl > 10-29 mL/min) *Enoxaparin/Lovenox 30 mg SQ BID (WT < 150 kg, CrCl > 30 mL/min) AND *Sequential Compression Device (SCD) <Danielito Cast L - 12/23/17 15:42> Total Risk Factor Score Risk Level Prophylaxis Regimen 0-1 Low Early ambulation 2 Moderate Order ONE of the following: *Sequential Compression Device (SCD) *Heparin 5000 units SQ BID 3-4 Higher Order ONE of the following medications: *Heparin 5000 units SQ TID *Enoxaparin/Lovenox 40 mg SQ daily (WT < 150 kg, CrCl > 30 mL/min) *Enoxaparin/Lovenox 30 mg SQ daily (WT < 150 kg, CrCl > 10-29 mL/min) *Enoxaparin/Lovenox 30 mg SQ BID (WT < 150 kg, CrCl > 30 mL/min) AND/OR *Sequential Compression Device (SCD) 5 or more Highest Order ONE of the following medications: *Heparin 5000 units SQ TID (Preferred with Epidurals) *Enoxaparin/Lovenox 40 mg SQ daily (WT < 150 kg, CrCl > 30 mL/min) *Enoxaparin/Lovenox 30 mg SQ daily (WT < 150 kg, CrCl > 10-29 mL/min) *Enoxaparin/Lovenox 30 mg SQ BID (WT < 150 kg, CrCl > 30 mL/min) AND *Sequential Compression Device (SCD) <Madiha Pruett E - 12/23/17 12:01> Assessment and Plan - Assessment (1) Right flank pain Code(s): R10.9 - Unspecified abdominal pain Status: Acute (2) Elevated troponin Code(s): R74.8 - Abnormal levels of other serum enzymes Status: Acute (3) BRANDON (acute kidney injury) Code(s): N17.9 - Acute kidney failure, unspecified Status: Acute (4) CHF (congestive heart failure) Code(s): I50.9 - Heart failure, unspecified Status: Acute (5) Hyperkalemia Code(s): E87.5 - Hyperkalemia Status: Acute (6) COPD (chronic obstructive pulmonary disease) Code(s): J44.9 - Chronic obstructive pulmonary disease, unspecified Status: Acute (7) Hyperlipidemia Code(s): E78.5 - Hyperlipidemia, unspecified Status: Acute (8) Diabetes type 2, controlled Code(s): E11.9 - Type 2 diabetes mellitus without complications Status: Acute (9) Hypertension Code(s): I10 - Essential (primary) hypertension Status: Acute (10) Nutrition, metabolism, and development symptoms Code(s): R63.8 - Other symptoms and signs concerning food and fluid intake Status: Acute <Danielito Cast - 12/23/17 15:42> (1) Right flank pain Code(s): R10.9 - Unspecified abdominal pain Status: Acute Plan: Apparently described as chest pain initially.Patient was evaluated for similar symptoms yesterday evening at [facility]. CT of chest at that time showed no evidence of PE. Patient is not complaining of acute exacerbation of shortness of breath. Consideration of MSK versus nephrolithiasis versus pyelonephritis -Urinalysis did not show any evidence of infection or blood -CT abdomen and pelvis ordered, stone protocol -Single dose morphine ordered for pain control, determine whether patient tolerates this due to oxycodone allergy before ordering repeat dosing -Acetaminophen for pain control now -Ultrasound of gallbladder shows large stone, no evidence of biliary obstruction (2) Elevated troponin Code(s): R74.8 - Abnormal levels of other serum enzymes Status: Acute Plan: 0.05 initially elevated to 0.1 on repeat Patient denies any chest pain, does have history of CHF. Likely demand ischemia in the setting of mild BRANDON. -EKG ordered, trend -Trend troponins -Continuous telemetry (3) BRANDON (acute kidney injury) Code(s): N17.9 - Acute kidney failure, unspecified Status: Acute Plan: Creatinine mildly elevated at 1.12. Unknown baseline. -We will continue patient's home Bumex -Hold on IV fluids due to patient's congestive heart failure -Repeat BMP in a.m. (4) CHF (congestive heart failure) Code(s): I50.9 - Heart failure, unspecified Status: Acute Plan: Patient does not know when she last had echo. Evidence of fluid overload on chest x-ray. -Daily weights -Limit p.o. intake to 1.5 L daily -Continue home Bumex 2 mg daily, require transition to IV appropriately -Echocardiogram (5) Hyperkalemia Code(s): E87.5 - Hyperkalemia Status: Acute Plan: Potassium 5.9 on admission decreased to 5.1 on repeat labs -EKG ordered to evaluate for cardiac changes -Repeat BMP in a.m. (6) COPD (chronic obstructive pulmonary disease) Code(s): J44.9 - Chronic obstructive pulmonary disease, unspecified Status: Acute Plan: Patient is on 2 L of oxygen at home at baseline. Reports that her breathing is at her baseline. Patient has been afebrile at home. -Continue home Singulair and prednisone -Continuous oxygen via NC -DuoNeb every 6 as needed and albuterol neb every 4 as needed -We will reevaluate breathing once patient has been appropriately diuresed -Hold on initiating antibiotics as this is believed to be mostly fluid overload versus infectious disease process (7) Hyperlipidemia Code(s): E78.5 - Hyperlipidemia, unspecified Status: Acute Plan: Continue home statin (8) Diabetes type 2, controlled Code(s): E11.9 - Type 2 diabetes mellitus without complications Status: Acute Plan: -Medium level sliding scale insulin -Cardiac and diabetic diet (9) Hypertension Code(s): I10 - Essential (primary) hypertension Status: Acute Plan: Continue home amlodipine (10) Nutrition, metabolism, and development symptoms Code(s): R63.8 - Other symptoms and signs concerning food and fluid intake Status: Acute Plan: Fluids: P.o. for now with limit to 1.5 L daily Dietary: Cardiac diabetic diet Electrolytes: Follow-up BMP to evaluate hyperkalemia DVT prophylaxis: SCDs and Lovenox <Madiha Pruett - 12/23/17 13:34> - Assessment and Plan Discussed Condition With: Kareem Cast and Sana <Madiha Pruett - 12/23/17 14:41> - Attending Attestation The exam, history, and the medical decision-making described in the above note were completed with the assistance of the resident physician. I reviewed and agree with the findings presented. I attest that I had a [id number] encounter with the patient on the same day, and personally performed and documented my assessment and findings in the medical record. I evaluated this patient this afternoon with Dr. Madiha Pruett, medical receptionist assistant. Patient is presenting with right side flank pain and significant CVA tenderness. No anterior chest pain by our history or exam. Reports a couple months ago she bent over to pick something up and has been experiencing pain in that area ever since. Does not have dysuria or hematuria per patient. UA showing no evidence for hematuria or infection. CT shows several renal stones that appear non-obstructing, largest is 7.5 mm on right side adjacent to renal pole. RUQ ultrasound shows non-obstructing gallstone without evidence for cholecystitis. Patient afebrile. Has history of CHF and COPD per report, respiratory status is at her baseline, reports mildly increase leg swelling from her baseline. No abdominal pain. Did have episode of nausea/vomiting. On exam, pleasant demeanor, obvious moderate pain from right flank, difficult to get comfortable in the bed due to the pain and attempting to lie in a manner that offsets pressure in that area, significant CVA tenderness on the right side , heart and lung sounds relatively normal, moderate lower extremity edema. DDx includes renal stone, pyelonephritis, intermittently obstructing gallstone, musculoskeletal pain/strain. <Danielito Cast - 12/23/17 15:42> <Madiha Pruett Last Filed: 12/23/17 13:34> (8) Diabetes type 2, controlled Qualifiers: Diabetes mellitus superintendent marine oil terminal insulin use: without custodial use Diabetes mellitus complication status: without complication Qualified Code(s): E11.9 - Type 2 diabetes mellitus without complications <Danielito Cast Filed: 12/23/17 15:42> (8) Diabetes type 2, controlled Qualifiers: Diabetes mellitus custodial insulin use: without custodial use Diabetes mellitus complication status: without complication Qualified Code(s): E11.9 - Type 2 diabetes mellitus without complications <Madiha Pruett Filed: 12/23/17 13:34> (8) Diabetes type 2, controlled Qualifiers: Diabetes mellitus custodial insulin use: without superintendent marine oil terminal use Diabetes mellitus complication status: without complication Qualified Code(s): E11.9 - Type 2 diabetes mellitus without complications <Danielito Cast Filed: 12/23/17 15:42> (8) Diabetes type 2, controlled Qualifiers: Diabetes mellitus custodial insulin use: without superintendent marine oil terminal use Diabetes mellitus complication status: without complication Qualified Code(s): E11.9 - Type 2 diabetes mellitus without complications
[2017-12-23 12:12] LABS: Amorphous Sediment,Urine Rare /hpf; Squamous Epithelial Cell,Urine 0-5 /hpf (0-5)
[2017-12-23 12:13] LABS: Mucus,Urine Rare /lpf (Occasional)
[2017-12-23] MEDS ORDERED: Acetaminophen 325 MG Tablet PO PRN (13:51)
[2017-12-23] MEDS ORDERED: Morphine Sulfate Inj 2 MG/ML Vial IV.PUSH ONE (13:56)
[2017-12-23] MEDS: Meloxicam 15 MG Tablet PO SCH (13:56)
[2017-12-23] MEDS: buPROPion 150 MG 12 HR Tablet PO SCH ×2 (13:57→22:10)
[2017-12-23] MEDS: amLODIPine 10 MG Tablet PO SCH (13:57)
[2017-12-23] MEDS ORDERED: Dextrose 50% in Water 50 ML Vial IV.PUSH PRN (14:01)
--- NOTE | 2017-12-23 14:06 | CT ---
EXAM DATE: 12/23/2017 1:49 PM EDT AGE/SEX: 72 years / Female INDICATIONS: Right flank pain. CLINICAL DATA: This is the patient's initial encounter. Patient reports that signs and symptoms have been present for 1 day and indicates a pain score of 4/10. MEDICAL/SURGICAL HISTORY: Hypertension. Hypertension. Diabetes. Hysterectomy. RADIATION DOSE: 23.65 CTDI (mGy) [place] [facility] [place]23[place]. . TECHNIQUE: Multiple contiguous axial images were obtained through the abdomen. Images were obtained using multiple row detector helical technique. Using automated exposure control and adjustment of the mA and/or kV according to patient size, radiation dose was kept as low as reasonably achievable to o btain optimal diagnostic quality images. DICOM format image data is available electronically for rev iew and comparison. FINDINGS: Lower Lungs: Consolidating airspace disease is identified in both lower lobes especially along the po sterior pleural margins. Liver: The liver has a homogeneous density without space-occupying lesion. There is no dilation of th e biliary tree. A large rim calcified gallstone measuring 2.5 x 2.9 cm in size is identified within t he gallbladder. There is no evidence of gallbladder wall thickening or gallbladder distention. Spleen: Homogeneous density without enlargement. Pancreas: Unremarkable without mass or calcification. Kidneys: Multiple calcifications are identified in each kidney. There are predominantly located with in the medullary portion of the kidney. The calcifications range in size up to 7.5 mm and are noted b ilaterally. A 7.5 mm calculus adjacent to the lower pole the right kidney may represent a stone withi n a duplex collecting system however there is no hydronephrosis. A similar smaller calcification is i dentified on the left measuring 2 to 3 mm. The right kidney contains a 3.9 cm cystic lesion in its lower pole. It does not fulfill the criteria for simple cyst. Adrenal Glands: Unremarkable. Aorta: The aorta and proximal iliac vessels are grossly unremarkable without aneurysmal dilation. Bowel/Mesentery: Numerous diverticula are noted throughout the colon. There are no acute inflammator y changes. There is no evidence of pathologic distention, free air or abnormal fluid collections. Moderate size hiatal hernia containing an air-fluid levels identified. Abdominal Wall: Large ventral hernia is identified. The opening in the peritoneum is approximately 1 0 cm. Both small and large intestinal loops project into the hernia. A second smaller (midline fat-co ntaining hernia is identified. Retroperitoneum: No evidence of adenopathy in the retrocrural, para-aortic, or deep pelvic regions. Bladder: Contours are smooth. Reproductive Organs: Uterus has been removed. There are no central pelvic or adnexal masses or fluid collections. Inguinal: The inguinal region is unremarkable without evidence of adenopathy. Bony Structures: Unremarkable. CONCLUSION: 1. Bibasilar consolidating airspace disease within the lower lobes. 2. 2.9 cm calcified gallstone without evidence of biliary obstructive disease or acute inflammation. 3. Multiple bilateral renal calculi without evidence of hydronephrosis. 4. Uncomplicated colonic diverticulosis. 5. Large ventral hernia containing both small and large intestinal loops. 6. Status post hysterectomy. Electronically signed by: Garcia Pena MD 12/23/2017 2:05 PM EDT
[2017-12-23] MEDS ORDERED: Naloxone Inj 0.4 MG/ML Vial IV.PUSH PRN (16:39)
[2017-12-23] MEDS ORDERED: HYDROmorphone PF Inj 1 MG/ML Ampul IV.PUSH PRN (16:39)
[2017-12-23] MEDS: Insulin NovoLOG Aspart Correctional Sugar Inj SQ SCH ×2 (17:15→22:09)
[2017-12-23] MEDS: Montelukast 10 MG Tablet PO SCH (18:13)
[2017-12-23] MEDS: predniSONE 5 MG Tablet PO SCH (22:09)
[2017-12-24 07:07] LABS: Baso % (Auto) 0.3 % (0.0-2.0); Eos % (Auto) 0.4 % (0.0-4.0); Hematocrit 40.4 % (35.0-46.0); Hemoglobin 12.6 gm/dL (11.6-15.3); Lymph % (Auto) 15.5 % (9.0-44.0); Mean Corpuscular HGB Conc 31.1 % (32.0-36.0); Mean Corpuscular Hemoglobin 29.7 pg (27.0-34.0); Mean Corpuscular Volume 95.4 fL (80.0-100.0); Mean Platelet Volume 9.7 fL (7.0-11.0); Mono # (Auto) 0.5 th/mm3 (0.0-0.9); Mono % (Auto) 7.1 % (0.0-8.0); Neut # (Auto) 4.9 th/mm3 (1.8-7.7); Neut % (Auto) 76.7 % (16.0-70.0); Platelet Count 134 th/mm3 (150-450); Red Blood Count 4.24 mil/mm3 (4.00-5.30); Red Cell Distribution Width 14.7 % (11.6-17.2); White Blood Count 6.4 th/mm3 (4.0-11.0)
[2017-12-24 07:34] LABS: Calcium 8.4 mg/dL (8.5-10.1); Carbon Dioxide 39.8 meq/L (21.0-32.0); Potassium 4.8 meq/L (3.5-5.1)
[2017-12-24] MEDS: Enoxaparin Inj 40 MG/0.4 ML Syringe SQ SCH (09:36)
[2017-12-24] MEDS: amLODIPine 10 MG Tablet PO SCH (09:37)
[2017-12-24] MEDS: Meloxicam 15 MG Tablet PO SCH (09:37)
[2017-12-24] MEDS: buPROPion 150 MG 12 HR Tablet PO SCH ×2 (09:37→21:20)
[2017-12-24] MEDS: Insulin NovoLOG Aspart Correctional Sugar Inj SQ SCH ×4 (09:37→21:19)
[2017-12-24] MEDS: predniSONE 5 MG Tablet PO SCH (09:37)
[2017-12-24] MEDS ORDERED: Ketorolac Inj 30 MG/ML (IVP) Vial IV.PUSH PRN (10:23)
--- NOTE | 2017-12-24 11:04 | P.PNFP ---
Subjective Interval history: Pt was very sleepy during the morning visit - bedside nurse stated that she was more alert this morning and was complaining of pain, so she administered her pain medication which made her very drowsy. She continues to complain about pain in her right side and right back. <MeganMayda U - 12/24/17 11:04> Results - Labs Result diagrams: 12/24/17 06:05 12/24/17 06:05 <Danielito Cast L - 12/24/17 18:29> Abnormal lab results 12/23/17 12/24/17 12/24/17 Range/Units 22:25 06:05 06:05 MCHC 31.1 L (32.0-36.0) % Plt Count 134 L (150-450) th/mm3 Neut % (Auto) 76.7 H (16.0-70.0) % O2 Saturation (90-100) % ABG pH (7.380-7.420) ABG pCO2 (38-42) mmHg ABG pO2 (61-120) mmHG ABG HCO3 (22-26) mmol/L ABG Base Excess (-2-2) mmol/L Carbon Dioxide 39.8 H (21.0-32.0) meq/L Anion Gap 4 L (5-15) meq/L Creatinine 1.10 H (0.50-1.00) mg/dL Estimated GFR 59 L (>89) mL/min POC Glucose (68-110) mg/dl Random Glucose 111 H (74-106) mg/dL Calcium 8.4 L (8.5-10.1) mg/dL Troponin I 0.15 H (0.02-0.05) ng/mL 12/24/17 12/24/17 12/24/17 Range/Units 08:13 12:14 14:40 MCHC (32.0-36.0) % Plt Count (150-450) th/mm3 Neut % (Auto) (16.0-70.0) % O2 Saturation (90-100) % ABG pH 7.13 L* (7.380-7.420) ABG pCO2 123 H* (38-42) mmHg ABG pO2 (61-120) mmHG ABG HCO3 40 H (22-26) mmol/L ABG Base Excess 10.5 H (-2-2) mmol/L Carbon Dioxide (21.0-32.0) meq/L Anion Gap (5-15) meq/L Creatinine (0.50-1.00) mg/dL Estimated GFR (>89) mL/min POC Glucose 129 H 128 H (68-110) mg/dl Random Glucose (74-106) mg/dL Calcium (8.5-10.1) mg/dL Troponin I (0.02-0.05) ng/mL 12/24/17 12/24/17 12/24/17 Range/Units 15:55 16:58 16:59 MCHC (32.0-36.0) % Plt Count (150-450) th/mm3 Neut % (Auto) (16.0-70.0) % O2 Saturation 85 L* (90-100) % ABG pH 7.21 L* (7.380-7.420) ABG pCO2 102 H* (38-42) mmHg ABG pO2 58 L* (61-120) mmHG ABG HCO3 40 H (22-26) mmol/L ABG Base Excess 11.6 H (-2-2) mmol/L Carbon Dioxide (21.0-32.0) meq/L Anion Gap (5-15) meq/L Creatinine (0.50-1.00) mg/dL Estimated GFR (>89) mL/min POC Glucose 141 H (68-110) mg/dl Random Glucose (74-106) mg/dL Calcium (8.5-10.1) mg/dL Troponin I 0.10 H (0.02-0.05) ng/mL 12/24/17 Range/Units 18:06 MCHC (32.0-36.0) % Plt Count (150-450) th/mm3 Neut % (Auto) (16.0-70.0) % O2 Saturation 88 L* (90-100) % ABG pH 7.45 H (7.380-7.420) ABG pCO2 53 H* (38-42) mmHg ABG pO2 50 L* (61-120) mmHG ABG HCO3 36 H (22-26) mmol/L ABG Base Excess 11.2 H (-2-2) mmol/L Carbon Dioxide (21.0-32.0) meq/L Anion Gap (5-15) meq/L Creatinine (0.50-1.00) mg/dL Estimated GFR (>89) mL/min POC Glucose (68-110) mg/dl Random Glucose (74-106) mg/dL Calcium (8.5-10.1) mg/dL Troponin I (0.02-0.05) ng/mL Short CBC 12/24/17 Range/Units 06:05 WBC 6.4 (4.0-11.0) th/mm3 Hgb 12.6 (11.6-15.3) gm/dL Hct 40.4 (35.0-46.0) % Plt Count 134 L (150-450) th/mm3 BMP 12/24/17 06:05 Sodium 144 Potassium 4.8 Chloride 100 Carbon Dioxide 39.8 H BUN 13 Creatinine 1.10 H Calcium 8.4 L Cardiac Enzymes 12/23/17 12/24/17 Range/Units 22:25 16:59 Total Creatine Kinase 75 (26-192) U/L Troponin I 0.15 H 0.10 H (0.02-0.05) ng/mL <Danielito Cast L - 12/24/17 18:29> Abnormal lab results 12/23/17 12/23/17 12/23/17 Range/Units 06:30 10:15 10:52 MCHC (32.0-36.0) % Plt Count (150-450) th/mm3 Neut % (Auto) (16.0-70.0) % Carbon Dioxide (21.0-32.0) meq/L Anion Gap (5-15) meq/L Creatinine (0.50-1.00) mg/dL Estimated GFR (>89) mL/min POC Glucose (68-110) mg/dl Random Glucose (74-106) mg/dL Calcium (8.5-10.1) mg/dL Troponin I 0.10 H (0.02-0.05) ng/mL B-Natriuretic Peptide 236 H (0-100) pg/mL Urine Protein 30 H (Neg-Trace) mg/dL Amorphous Sediment Rare H (None) /hpf Urine Mucus Rare H (Occasional) /lpf 12/23/17 12/23/17 12/24/17 Range/Units 16:38 22:25 06:05 MCHC 31.1 L (32.0-36.0) % Plt Count 134 L (150-450) th/mm3 Neut % (Auto) 76.7 H (16.0-70.0) % Carbon Dioxide (21.0-32.0) meq/L Anion Gap (5-15) meq/L Creatinine (0.50-1.00) mg/dL Estimated GFR (>89) mL/min POC Glucose (68-110) mg/dl Random Glucose (74-106) mg/dL Calcium (8.5-10.1) mg/dL Troponin I 0.12 H 0.15 H (0.02-0.05) ng/mL B-Natriuretic Peptide (0-100) pg/mL Urine Protein (Neg-Trace) mg/dL Amorphous Sediment (None) /hpf Urine Mucus (Occasional) /lpf 12/24/17 12/24/17 Range/Units 06:05 08:13 MCHC (32.0-36.0) % Plt Count (150-450) th/mm3 Neut % (Auto) (16.0-70.0) % Carbon Dioxide 39.8 H (21.0-32.0) meq/L Anion Gap 4 L (5-15) meq/L Creatinine 1.10 H (0.50-1.00) mg/dL Estimated GFR 59 L (>89) mL/min POC Glucose 129 H (68-110) mg/dl Random Glucose 111 H (74-106) mg/dL Calcium 8.4 L (8.5-10.1) mg/dL Troponin I (0.02-0.05) ng/mL B-Natriuretic Peptide (0-100) pg/mL Urine Protein (Neg-Trace) mg/dL Amorphous Sediment (None) /hpf Urine Mucus (Occasional) /lpf Short CBC 12/24/17 Range/Units 06:05 WBC 6.4 (4.0-11.0) th/mm3 Hgb 12.6 (11.6-15.3) gm/dL Hct 40.4 (35.0-46.0) % Plt Count 134 L (150-450) th/mm3 BMP 12/24/17 06:05 Sodium 144 Potassium 4.8 Chloride 100 Carbon Dioxide 39.8 H BUN 13 Creatinine 1.10 H Calcium 8.4 L Cardiac Enzymes 12/23/17 12/23/17 12/23/17 Range/Units 10:15 16:38 22:25 Troponin I 0.10 H 0.12 H 0.15 H (0.02-0.05) ng/mL Urine 12/23/17 Range/Units 10:52 Urine Color Yellow (Yellw/Straw) Urine Clarity Clear (Clear) Urine pH 5.0 (5.0-8.5) Ur Specific [place] 1.034 (1.002-1.035) Urine Protein 30 H (Neg-Trace) mg/dL Urine Glucose (UA) Negative (Negative) mg/dL <Mayda Guzman U - 12/24/17 11:04> - Imaging Impressions Abdomen X-Ray 12/24/17 00:00 CONCLUSION: Negative examination. No discrete calculi. Chest X-Ray 12/24/17 00:00 CONCLUSION: Tip of endotracheal tube 1 cm from the shannan. Unchanged bilateral infiltrates. Chest X-Ray 12/24/17 10:30 CONCLUSION: Bilateral parenchymal consolidation. Chest X-Ray 12/24/17 15:44 CONCLUSION: Unchanged cardiomegaly with pulmonary vascular engorgement and bilateral pulmonary infiltrates. Pulmonary edema suspected. <Danielito Cast - 12/24/17 18:29> Chest X-Ray 12/24/17 10:30 CONCLUSION: Bilateral parenchymal consolidation. Abdomen X-Ray 12/24/17 00:00 CONCLUSION: Negative examination. No discrete calculi. Abdomen/Pelvis CT 12/23/17 00:00 CONCLUSION: 1. Bibasilar consolidating airspace disease within the lower lobes. 2. 2.9 cm calcified gallstone without evidence of biliary obstructive disease or acute inflammation. 3. Multiple bilateral renal calculi without evidence of hydronephrosis. 4. Uncomplicated colonic diverticulosis. 5. Large ventral hernia containing both small and large intestinal loops. 6. Status post hysterectomy. Chest X-Ray 12/23/17 05:54 CONCLUSION: 1. Cardiomegaly with mild positive fluid balance. 2. Left lower lobe airspace disease and likely trace left pleural effusion. Gallbladder Ultrasound 12/23/17 07:09 CONCLUSION: 1. Shadowing from the gallbladder most characteristic of a large calcified gallstone. 2. Hyperechoic heterogeneous hepatic echotexture characteristic of hepatocellular disease. 3. No evidence of biliary obstruction. <Mayda Guzman U - 12/24/17 14:10> Physical Exam Vital signs: Vital Signs 12/23/17 20:00 12/24/17 00:00 12/24/17 04:00 Temperature 97.9 F 97.4 F L 97.9 F Pulse Rate 96 H 101 H 93 H Respiratory Rate 20 20 20 Blood Pressure 111/57 L 105/63 103/58 L Pulse Oximetry 93 L 92 L 92 L 12/24/17 08:00 12/24/17 12:00 12/24/17 12:56 Temperature 97.9 F 98.0 F Pulse Rate 102 H 94 H Respiratory Rate 22 22 Blood Pressure 134/69 114/64 Pulse Oximetry 94 L 95 95 12/24/17 16:00 12/24/17 16:39 12/24/17 16:48 Temperature 97.8 F Pulse Rate 100 H 102 H Respiratory Rate 25 H 18 18 Blood Pressure 122/77 Pulse Oximetry 94 L 99 Intake & Output 12/23/17 12/24/17 12/24/17 18:59 06:59 18:59 Intake Total 200 / 200 240 / 240 Balance 200 / 200 240 / 240 Weight 120.3 kg 117.1 kg Intake: Oral 200 / 200 240 / 240 Other: # Voids 1 3 # Bowel Movements 0 Weight On Admission 120.3 kg <Young,Danielito L - 12/24/17 18:29> Vital Signs 12/23/17 13:42 12/23/17 14:36 12/23/17 17:03 Temperature 97.9 F 97.7 F Pulse Rate 94 H 92 H Respiratory Rate 18 20 Blood Pressure 121/86 133/80 Pulse Oximetry 4 L 95 12/23/17 20:00 12/24/17 00:00 12/24/17 04:00 Temperature 97.9 F 97.4 F L 97.9 F Pulse Rate 96 H 101 H 93 H Respiratory Rate 20 20 20 Blood Pressure 111/57 L 105/63 103/58 L Pulse Oximetry 93 L 92 L 92 L 12/24/17 08:00 Temperature 97.9 F Pulse Rate 98 H Respiratory Rate 22 Blood Pressure 134/69 Pulse Oximetry 94 L Intake & Output 12/23/17 12/24/17 12/24/17 18:59 06:59 18:59 Intake Total 200 / 200 240 / 240 Balance 200 / 200 240 / 240 Weight 120.3 kg 117.1 kg Intake: Oral 200 / 200 240 / 240 Other: # Voids 1 3 # Bowel Movements 0 Weight On Admission 120.3 kg <Mayda Guzman - 12/24/17 11:04> Narrative: GENERAL: Obese female lying in bed on nasal cannula at rate of 5L. HEAD: Normocephalic. EYES: Pupils equal and round and reactive. No scleral icterus. ENT: No nasal bleeding or discharge. Mucous membranes pink and dry. NECK: No JVD. CARDIOVASCULAR: Regular rate and rhythm. Holosystolic murmur appreciated. RESPIRATORY: No accessory muscle use. No crackles noted but diminished lung sounds with poor effort. GASTROINTESTINAL: Abdomen soft, obese, no guarding. Moderate pain to palpation of RUQ extending to right flank and right back. Large ventral hernia present nontender to palpation. MUSCULOSKELETAL: Extremities without clubbing, cyanosis. Pedal edema bilaterally, nonpitting NEUROLOGICAL: Sleepy but responds to questions. No obvious cranial nerve deficits. Motor grossly within normal limits. Normal speech. <Mayda Guzman - 12/24/17 14:23> Assessment and Plan - Assessment (1) Right flank pain Code(s): R10.9 - Unspecified abdominal pain Status: Acute (2) CHF (congestive heart failure) Code(s): I50.9 - Heart failure, unspecified Status: Acute (3) BRANDON (acute kidney injury) Code(s): N17.9 - Acute kidney failure, unspecified Status: Acute (4) Elevated troponin Code(s): R74.8 - Abnormal levels of other serum enzymes Status: Acute (5) Diabetes type 2, controlled Code(s): E11.9 - Type 2 diabetes mellitus without complications Status: Acute (6) COPD (chronic obstructive pulmonary disease) Code(s): J44.9 - Chronic obstructive pulmonary disease, unspecified Status: Acute (7) Hyperlipidemia Code(s): E78.5 - Hyperlipidemia, unspecified Status: Acute (8) Hypertension Code(s): I10 - Essential (primary) hypertension Status: Acute (9) Depression Code(s): F32.9 - Major depressive disorder, single episode, unspecified Status : Acute (10) Nutrition, metabolism, and development symptoms Code(s): R63.8 - Other symptoms and signs concerning food and fluid intake Status: Acute <Danielito Cast - 12/24/17 18:29> (1) Right flank pain Code(s): R10.9 - Unspecified abdominal pain Status: Acute Plan: -Urinalysis did not show any evidence of infection or blood -Ultrasound of gallbladder shows large stone, no evidence of biliary obstruction -CT abdomen and pelvis notable for multiple calcifications in each kidney as described above. Unsure if any of the stones are the etiology of her pain -Pain control with Toradol 15 mg IV every 6 hours PRN and Dilaudid 0.5 mg p.o. every 6 hours for breakthrough -Continue Flomax 0.4mg PO daily -Urology consult pending (2) CHF (congestive heart failure) Code(s): I50.9 - Heart failure, unspecified Status: Acute Plan: -PA/LAT CXR today shows airspace disease in the RUL, LIZ, LLL, and RLL with cardiomegaly -In addition to CHF, pneumonia is on the differential but patient is afebrile with a normal wbc count -Hold on initiating antibiotics as this is believed to be mostly fluid overload versus infectious disease process -BNP 236 on admission -On Bumex 2mg IV at 9am and 6pm with an additional 2mg IV dose given this morning -DuoNeb every 6h scheduled and albuterol neb every 4h as needed -Repeat cxr in the am -Continue daily weights -Limit p.o. intake to 1.5 L daily -Echocardiogram pending (3) BRANDON (acute kidney injury) Code(s): N17.9 - Acute kidney failure, unspecified Status: Acute Plan: -Creatinine mildly elevated at 1.12 on admission. Unknown baseline. -Improved to 1.10 today. -Continue Bumex IV for diuresis as above -Hold on IV fluids due to patient's congestive heart failure -Repeat BMP in a.m. (4) Elevated troponin Code(s): R74.8 - Abnormal levels of other serum enzymes Status: Acute Plan: -Troponin 0.05 initially elevated to 0.10 and 0.15 with no chest pain, likely demand ischemia in the setting of mild BRANDON -EKG shows sinus rhythm with occasional PVCs, LVH, and mild ST changes -Continue continuous telemetry (5) Diabetes type 2, controlled Code(s): E11.9 - Type 2 diabetes mellitus without complications Status: Acute Plan: -Medium level sliding scale insulin * Required only 2 units in the past 24 hrs -Cardiac and diabetic diet (6) COPD (chronic obstructive pulmonary disease) Code(s): J44.9 - Chronic obstructive pulmonary disease, unspecified Status: Acute Plan: -On 2 L of oxygen at home at baseline -Continue home Singulair and prednisone -Continuous oxygen via NC -Breathing treatments as above (7) Hyperlipidemia Code(s): E78.5 - Hyperlipidemia, unspecified Status: Acute Plan: -Continue home atorvastatin (8) Hypertension Code(s): I10 - Essential (primary) hypertension Status: Acute Plan: -Mostly well-controlled -Continue home amlodipine 10 mg PO daily (9) Depression Code(s): F32.9 - Major depressive disorder, single episode, unspecified Status : Acute Plan: -Continue home Wellbutrin 150mg PO BID (10) Nutrition, metabolism, and development symptoms Code(s): R63.8 - Other symptoms and signs concerning food and fluid intake Status: Acute Plan: Fluids: P.o. for now with limit to 1.5 L daily Dietary: Cardiac diabetic diet Electrolytes: Monitor daily and replete as needed DVT prophylaxis: SCDs and Lovenox [facility]25> - Assessment and Plan Discussed Condition With: Patient, patient's nurse, medicine team, attending Dr. Cast [facility] 12/24/[facility] 14:10> Discharge Planning: Pending clinical improvement in symptoms [facility] 12/[facility] 14:10> - Attending Attestation The exam, history, and the medical decision-making described in the above note were completed with the assistance of the resident physician. I reviewed and agree with the findings presented. I attest that I had a [id number] encounter with the patient on the same day, and personally performed and documented my assessment and findings in the medical record. Patient this morning was more drowsy than before. Discussion with the nurse revealed that before we saw her, she was awake and alert, and complaining of right flank pain. Nurse administered pain medication and patient became more drowsy. We cut back on the dosage of pain medication as a result, reserving Dilaudid for breakthrough pain only, and switching to Toradol as the main choice. Urology consult is pending to assess renal stones and if any intervention is warranted or explains her flank pain. Gallbladder ultrasound shows non-obstructive stone without cholecystitis. Patient has a history of CHF and COPD. This afternoon, patient had a status change and a rapid response was called for increasing oxygen needs. The resident team assessed her, titrated oxygen, ordered labs. ABG showed significant acute hypercapnic hypoxemia with respiratory acidosis. Oxygen was titrated to positive pressure ventilation and tour consultant was consulted, with transfer to the intensive care unit. Note documenting this event in more detail is pending. <Danielito Cast - 12/24/17 18:29> <Mayda Guzman U - Last Filed: 12/24/17 14:25> (5) Diabetes type 2, controlled Qualifiers: Diabetes mellitus computer terminal operator insulin use: without nursing home use Diabetes mellitus complication status: without complication Qualified Code(s): E11.9 - Type 2 diabetes mellitus without complications <Danileito Cast L - Last Filed: 12/24/17 18:29> (5) Diabetes type 2, controlled Qualifiers: Diabetes mellitus nursing home insulin use: without computer terminal operator use Diabetes mellitus complication status: without complication Qualified Code(s): E11.9 - Type 2 diabetes mellitus without complications <Mayda Guzman - Last Filed: 12/24/17 14:25> (5) Diabetes type 2, controlled Qualifiers: Diabetes mellitus computer terminal operator insulin use: without nursing home use Diabetes mellitus complication status: without complication Qualified Code(s): E11.9 - Type 2 diabetes mellitus without complications <Danielito Cast - Last Filed: 12/24/17 18:29> (5) Diabetes type 2, controlled Qualifiers: Diabetes mellitus nursing home insulin use: without nursing home use Diabetes mellitus complication status: without complication Qualified Code(s): E11.9 - Type 2 diabetes mellitus without complications
--- NOTE | 2017-12-24 11:28 | XR ---
EXAM DATE: 12/24/2017 11:24 AM EDT AGE/SEX: 72 years / Female INDICATIONS: . Shortness of breath. CLINICAL DATA: This is the patient's subsequent encounter. Patient reports that signs and symptoms h ave been present for 3 days and indicates a pain score of 0/10. MEDICAL/SURGICAL HISTORY: . Diabetes. Congestive heart failure. Hypertension. Asthma. COPD. Cat aract. . Hysterectomy. Orthopedic surgery. COMPARISON: [facility] – [place], CHEST 1V SINGLE AP, 12/23/2017. . FINDINGS: There is airspace disease in the right upper lobe, left upper lobe, left lower lobe to a lesser exten t right lower lobe. There is cardiomegaly identified. No obvious effusion. CONCLUSION: Bilateral parenchymal consolidation. Electronically signed by: Fausto Mckeon MD 12/24/2017 11:27 AM EDT
--- NOTE | 2017-12-24 11:36 | XR ---
EXAM DATE: 12/24/2017 11:26 AM EDT AGE/SEX: 72 years / Female INDICATIONS: Abdominal pain. Possible stone. Pain on right side. CLINICAL DATA: This is the patient's subsequent encounter. Patient reports that signs and symptoms h ave been present for 3 days and indicates a pain score of 8/10. MEDICAL/SURGICAL HISTORY: . Diabetes. Congestive heart failure. Hypertension. Asthma. COPD. Cat aract. . Hysterectomy. Orthopedic surgery. COMPARISON: [facility] – [place] ABDOMEN & PELVIS W/O CONTRAST, 12/23/2017. . FINDINGS: The abdominal bowel gas pattern is normal. No abnormal masses, calcifications, or organomegaly is s een. The osseous structures are unremarkable. CONCLUSION: Negative examination. No discrete calculi. Electronically signed by: Fausto Mckeon MD 12/24/2017 11:35 AM EDT
--- NOTE | 2017-12-24 12:01 | ECG ---
Date Performed: 12/23/2017 Time Performed: 22:28:55 PTAGE: 72 years EKG: Sinus rhythm WITH OCCASIONAL VENTRICULAR PREMATURE COMPLEXES WITH OCCASIONAL SUPRAVENTRICULAR PREMATURE COMPLEXES LEFT VENTRICULAR HYPERTROPHY AND ST-T CHANGE ABNORMAL ECG PREVIOUS TRACING : 12/23/2017 17.11 DOCTOR: Edi Michaud Interpretating Date/Time 12/24/2017 11:57:31
--- NOTE | 2017-12-24 14:20 | MB ---
cc: Asa Larrymarquis Cope DO DATE: 12/24/2017 HISTORY OF PRESENT ILLNESS: This is a 72-year-old female who was recently at [facility], who had some difficulty with breathing and pain over the right costal margin area. This has been going on since 10/2017. She apparently had a CTA at [facility], which was negative for any pulmonary embolus. She was having some chest pain at that time. She presently denies any chest pain. She denies any prior history of kidney stones, urinary tract infections or blood in the urine. She did undergo a CT scan at [place], which demonstrated bilateral nonobstructing renal calculi and there appeared to be contrast within the bladder, but I could not determine if this was a bladder stone. Given that she had a recent CTA for rule out PE, this could be residual contrast in the bladder. I will obtain a KUB x-ray to confirm. PAST MEDICAL HISTORY: Includes asthma, CHF, COPD, cataracts, diabetes, and hypertension. PAST SURGICAL HISTORY: Noted for hysterectomy in the past and some orthopedic surgery. SOCIAL HISTORY: Denies smoking or using drugs, but drinks once a month. FAMILY HISTORY: No history of malignancies. REVIEW OF SYSTEMS: Presently denies chest pain or shortness of breath. Denies abdominal pain. Denies gait disturbances, bleeding disorders, headaches, vision problems. The remaining review of systems were reviewed and were negative. PHYSICAL EXAMINATION: VITAL SIGNS: Today, temperature 97.9, heart rate 93, respiratory rate 20, blood pressure 103/58, 92% on room air. GENERAL: She is an obese 72-year-old female in no acute distress. HEENT: Normocephalic, atraumatic. Pupils equal, round, regular, reactive to light. Extraocular movements intact. NECK: Supple. HEART: Regular rate and rhythm. LUNGS: Clear bilaterally. ABDOMEN: Soft, nontender, nondistended. There is mild right-sided CVA tenderness noted. EXTREMITIES: Show no evidence of cyanosis, clubbing, or edema. LABORATORY DATA: White count today is 6.4, hemoglobin 12.6, hematocrit 40.4, platelet count 134. Sodium 144, potassium 4.8, chloride 100, CO2 of 39.8, BUN 13, creatinine 1.1, glucose of 129. Urinalysis was negative on admission. ASSESSMENT AND PLAN: This is a 72-year-old female with bilateral nonobstructing renal calculi which are small with what appears to be contrast in the bladder, but could be a large bladder stone. Recommend a KUB to make sure this contrast is passed out of the bladder. As for her bilateral nonobstructing renal stones, would observe for now and she can follow up in the clinic as an outpatient and will consider extracorporeal shockwave lithotripsy at that time. Thank you for the consult and allowing me to participate in the care of this patient. DO Radha Sanchez , 10:37 AM , 10:43 AM
[2017-12-24 14:54] LABS: ABG Base Excess 10.5 mmol/L (-2-2); ABG PCO2 123 mmHg (38-42); ABG PO2 84 mmHg (61-120)
[2017-12-24] MEDS ORDERED: Sodium Bicarbonate 8.4% Inj 50 MEQ/50 ML Syringe ONE (14:58)
--- NOTE | 2017-12-24 15:14 | P.PNADD ---
Addendum to Inpatient Note Reason for Addendum: Additional Documentation Additional information: Kareem Hood and Megan were called for a Halicat at 2:55PM. Nursing reported by phone that the pt had been requiring increased O2 requirement and now required > 9L O2 to keep sats above 90% and was now on partial rebreather mask. Nursing was planning to get ABG and asked us to come up to assess pt. We had already obtained an CXR several hours ago showing worsening pt bilateral lung opacities which could be fluid or infectious. Pt has been afebrile, CBC wnl. Upon entering the room pt had nonrebreather mask on, complained that she was SOB. She had no UOP since being administered Bumex this morning. ABG resulted moments after entering the room showing acute metabolic acidosis with pH 7.13, CO2 123, O2 83.5. Vital Signs: BP 127/74 HR 104 RR 14 on partial rebreather @ 100% FiO2 Vital Signs - 8 hr 12/24/17 08:00 12/24/17 12:00 12/24/17 12:56 Temperature 97.9 F 98.0 F Pulse Rate 102 H 94 H Respiratory Rate 22 22 Blood Pressure 134/69 114/64 Pulse Oximetry 94 L 95 95 Physical Exam: GENERAL: Obese AAF on partial non-rebreather mask, able to answer questions, respiratory distress SKIN: Warm and dry. HEAD: Normocephalic. EYES: No scleral icterus. No injection or drainage. NECK: Supple, trachea midline. No JVD or lymphadenopathy. CARDIOVASCULAR: Tachycardic, regular rhythm without murmurs, gallops, or rubs. RESPIRATORY: Distant breath sounds. No accessory muscle use. GASTROINTESTINAL: Abdomen soft, non-tender, nondistended. MUSCULOSKELETAL: No cyanosis, or edema. BACK: CVA tenderness. Imaging: Chest X-Ray 12/24/17 10:30 CONCLUSION: Bilateral parenchymal consolidation. A/P: 72 YO AAF w/Hx of COPD, CHF, obesity who presented with CP and Troponin elevation and found to have multiple kidney stones with increasing SOB and acute hypoxic, hypercapnic respiratory failure and urinary retention s/p Bumex treatment this morning. Urology has already been consulted. Plan: -ABG 7.13/123/83.5/ -Duonebs and albuterol scheduled -Transfer to [facility] -Joy Operator consult--spoke with Dr Craig who agreed to need for urgent transfer -IV push Bicarb once -BiPaP -EKG -Troponin -Hawley inserted for urinary retention with 600 ml out in 1 minute -Continued Diuresis Pt SDW Dr Guzman, pt DW Kareem Craig and Segun
--- NOTE | 2017-12-24 15:29 | ECHRPT ---
Indication: HEART FAILURE CONCLUSIONS The left ventricular systolic function is moderately reduced with an estimated ejection fraction in the range of 40-45%. Normal left ventricular size. Wall thickness is measured at the upper limits of normal. No regional wall motion abnormalities are present. BP: / HR: Rhythm: MEASUREMENTS (Male / Female) Normal Values Technical Quality: 2D ECHO LV Diastolic Diameter PLAX 5.5 cm 4.2 - 5.9 / 3.9 - 5.3 cm LV Systolic Diameter PLAX 4.7 cm IVS Diastolic Thickness 1.2 cm 0.6 - 1.0 / 0.6 - 0.9 cm LVPW Diastolic Thickness 1.1 cm 0.6 - 1.0 / 0.6 - 0.9 cm LV Relative Wall Thickness 0.4 LA Systolic Diameter LX 3.4 cm 3.0 - 4.0 / 2.7 - 3.8 cm LV Ejection Fraction MOD 4C 43.3 % LV Ejection Fraction 4C AL 45.4 % M-MODE LV Diastolic Diameter MM 7.5 cm 4.2 - 5.9 / 3.9 - 5.3 cm LV Systolic Diameter MM 5.9 cm LV Ejection Fraction MM Teich 42.0 % IVS Diastolic Thickness MM 1.2 cm 0.6 - 1.0 / 0.6 - 0.9 cm LVPW Diastolic Thickness MM 1.2 cm 0.6 - 1.0 / 0.6 - 0.9 cm LV Relative Wall Thickness MM 0.3 0.24 - 0.42 / 0.22 - 0.42 FINDINGS LEFT VENTRICLE The left ventricular systolic function is moderately reduced with an estimated ejection fraction in the range of 40-45%. Normal left ventricular size. Wall thickness is measured at the upper limits of normal. No regional wall motion abnormalities are present. RIGHT VENTRICLE The right ventricle was not well visualized. LEFT ATRIUM The left atrial size is normal. RIGHT ATRIUM The right atrial size is normal. ATRIAL SEPTUM The interatrial septum not well visualized. AORTA The aortic root and proximal ascending aorta are normal in size on limited imaging. MITRAL VALVE Mild thickening of the mitral valve leaflets. No mitral valve regurgitation. AORTIC VALVE Trileaflet aortic valve. No aortic valve stenosis or regurgitation. PERICARDIUM No pericardial effusion. Edi Michaud MD (Electronically Signed) Final Date:24 December 2017 15:28
--- NOTE | 2017-12-24 15:52 | P.CONCC ---
History of Present Illness Service: Critical care medicine Consult date: 12/24/17 Requesting Physician: Az Hood III Reason for Consult: Acute respiratory failure, CO2 retention Primary Care Provider: UNKNOWN Family Provider: Unknown unknown Chief Complaint: Shortness of breath, abdominal pain History of Present Illness: This is a 72-year-old AA female. Date of admission 12/23/2017. Date of consultation 12/24/2017. Past medical history includes likely chronic systolic heart failure, essential hypertension, hyperlipidemia, diabetes mellitus, elevated BMI, depression, cataracts and COPD. Patient was originally seen at [facility] on 12/22 with chest pain/abdominal pain. At that facility, reportedly had a CT pulmonary revealed no pulmonary embolus and. She was sent home on hydrocodone/acetaminophen. This made her drowsy. She presented to [facility] on 12/23. Essentially, patient received a CT of the abdomen pelvis which revealed a gallstone, bilateral nonobstructing nephrolithiasis colonic diverticulosis and ventral hernia along with a cyst in the right kidney. Patient was receiving hydromorphone for pain management. Patient rapid response team today due to altered mental status. ABG revealed significant CO2 retention. Attempted BiPAP for approximately an hour with minimal improvement of mentation and CO2. Decision was made to emergently intubate. Chest x-ray revealed a right lower lobe infiltrate. Will be started on empiric antibiotics. Stat laboratories including likely, troponin pending. Nuclear medicine hepatobiliary scan pending. Repeat CT abdomen/pelvis pending Review of Systems unobtainable due to mental status PMFSH - History History Provided By: Patient - Medical History Medical History: Medical History (Last Updated 12/24/17 @ 15:40 by Antony Diggs MD) Asthma CHF (congestive heart failure) COPD (chronic obstructive pulmonary disease) Cataract Depression Diabetes H/O: hysterectomy Hypertension - Surgical History Surgical History: Surgical History (Last Reviewed 12/24/17 @ 15:40 by Antony Diggs MD) History of orthopedic surgery - Family History Family History: Family History (Last Updated 12/24/17 @ 15:40 by Antony Diggs MD) Other Family history unknown - Social History I have reviewed the patient's Social History: Yes - Tobacco History Second Hand Smoke Exposure: No Smoking Status: Unknown if ever smoked - Alcohol History How Often Do You Have a Drink Containing Alcohol: Unable to Obtain - Substance Use History Substance History: No History of Abuse - Immunization History Tetanus Immunization: >5 Years Hx Influenza Vaccine This Season: No Medications and Allergies Active Medications: Active Medications Acetaminophen (Tylenol) 650 mg PO Q6HR PRN PRN Reason: PAIN SCALE 1 TO 2 Al Hydroxide/Mg Hydroxide (Milk Of Magndionne Liq) 30 ml PO Q12H PRN PRN Reason: Mild Constipation Albuterol (Duoneb Neb (Marquez)) 1 ampul NEB Q4HR NEB MARQUEZ Albuterol (Albuterol Neb (Prn)) 2.5 mg NEB Q2HR NEB PRN PRN Reason: SHORTNESS OF BREATH Amlodipine Besylate (Norvasc) 10 mg PO DAILY [facility] Last Admin: 12/24/17 09:37 Dose: 10 mg Atorvastatin Calcium (Lipitor) 10 mg PO DAILY [facility] Last Admin: 12/24/17 09:37 Dose: 10 mg Budesonide (Pulmocort Respule Neb) 0.5 mg NEB Q12HR [facility] Bumetanide (Bumex Inj) 2 mg IV.PUSH BID@0900,1800 [facility] Bupropion HCl (Wellbutrin Sr) 150 mg PO BID [facility] Last Admin: 12/24/17 09:37 Dose: 150 mg Dextrose (D50w Vial) 50 ml IV.PUSH UNSCH PRN PRN Reason: PER HYPOGLYCEMIA PROTOCOL Enoxaparin Sodium (Lovenox Inj) 40 mg SQ DAILY [facility] Last Admin: 12/24/17 09:36 Dose: 40 mg Glucagon (Glucagon Inj) 1 mg OTHER PRN PRN PRN Reason: for Hypoglycemia Protocol Hydromorphone HCl (Dilaudid) 0.5 mg PO Q4H PRN PRN Reason: BREAKTHROUGH PAIN Insulin Aspart (Novolog Insulin Correctional Sugar Inj) 0 unit SQ ACHS [facility]; Protocol Last Admin: 12/24/17 13:29 Dose: Not Given Methylprednisolone Sodium Succinate (Solumedrol Inj) 40 mg IV.PUSH Q12HR [facility] Montelukast Sodium (Singulair) 10 mg PO QPM [facility] Last Admin: 12/23/17 18:13 Dose: 10 mg Naloxone HCl (Narcan Inj) 0.4 mg IV.PUSH UNSCH PRN PRN Reason: SEE LABEL COMMENTS Ondansetron HCl (Zofran Odt) 4 mg PO Q4H PRN PRN Reason: NAUSEA OR VOMITING Last Admin: 12/23/17 22:09 Dose: 4 mg Pramipexole Dihydrochloride (Mirapex) 0.25 mg PO QPM [facility] Last Admin: 12/23/17 18:13 Dose: 0.25 mg Sennosides (Senokot) 17.2 mg PO Q12H PRN PRN Reason: Moderate Constipation Sodium Chloride (Ns Flush) 2 ml IV.FLUSH UNSCH PRN PRN Reason: FLUSH AFTER USING IV ACCESS Tamsulosin HCl (Flomax) 0.4 mg PO DAILY [facility] Last Admin: 12/24/17 09:37 Dose: 0.4 mg Allergies Allergy/AdvReac Type Severity Reaction Status Date / Time aspirin [From Percodan] Allergy Severe Hallucinati Verified 12/23/17 05:38 ons oxycodone [From Percodan] Allergy Severe Hallucinati Verified 12/23/17 05:38 ons Home Medications Medication Instructions Recorded Confirmed Type amlodipine 10 mg PO DAILY 12/23/17 12/23/17 History bumetanide 2 mg PO DAILY 12/23/17 12/23/17 History bupropion HCl [Wellbutrin XL] 300 mg PO QAM 12/23/17 12/23/17 History meloxicam [Mobic] 15 mg PO DAILY 12/23/17 12/23/17 History montelukast 10 mg PO QPM 12/23/17 12/23/17 History pramipexole [Mirapex] 0.25 mg PO QPM 12/23/17 12/23/17 History prednisone 5 mg PO BID 12/23/17 12/23/17 History Physical Exam Vital signs: Vital Signs 12/23/17 17:03 12/23/17 20:00 12/24/17 00:00 Temperature 97.7 F 97.9 F 97.4 F L Pulse Rate 92 H 96 H 101 H Respiratory Rate 20 20 20 Blood Pressure 133/80 111/57 L 105/63 Pulse Oximetry 95 93 L 92 L 12/24/17 04:00 12/24/17 08:00 12/24/17 12:00 Temperature 97.9 F 97.9 F 98.0 F Pulse Rate 93 H 102 H 94 H Respiratory Rate 20 22 22 Blood Pressure 103/58 L 134/69 114/64 Pulse Oximetry 92 L 94 L 95 12/24/17 12:56 Temperature Pulse Rate Respiratory Rate Blood Pressure Pulse Oximetry 95 Intake & Output 12/23/17 12/24/17 12/24/17 18:59 06:59 18:59 Intake Total 200 / 200 240 / 240 Balance 200 / 200 240 / 240 Weight 120.3 kg 117.1 kg Intake: Oral 200 / 200 240 / 240 Other: # Voids 1 3 # Bowel Movements 0 Weight On Admission 120.3 kg - Constitutional mild distress, morbidly obese, somnolent - Routine HEENT Exam Head: Present: normocephalic, atraumatic Eye: Present: EOMI, PERRL, normal accommodation. Absent: conjunctival icterus ENT: Present: mucous membranes moist - Routine Neck Exam Present: supple, full ROM. Absent: JVD, carotid bruit - Routine Respiratory Exam Present: accessory muscle use, crackles, diminished air movement. Absent: wheezes - Routine Cardiovascular Exam Present: S1, S2, tachycardia. Absent: murmur - Routine Abdominal Exam Present: soft, tenderness, guarding, hernia. Absent: distended, firm, mass - Routine Exam Patient deferred: external exam, groin exam, perineal exam - Routine Extremities Exam Present: edema. Absent: cyanosis, clubbing - Routine Skin Exam Present: intact - Routine Neurological Exam Present: alert, CN II-XII intact. Absent: oriented X3, sensory deficit, motor deficit - Detailed Neurological Exam: Coma Scale Eye Opening: To sound Verbal Response: Confused Motor Response: Obey commands Daya Coma Scale Total: 13 - Routine Psychiatric Exam Present: unable to assess Septic Shock Reassessment Septic shock perfusion: reassessment completed Assessment and Plan - Assessment and Plan Plan: Neuro/Psych: Depressive disorder NOS History of cataracts Written for propofol for sedation while intubated Goal of RA SS -2 Daily sedation vacation Currently on bupropion 150 mg twice daily/home medication Continue pramipexole 0.25 mg at night for sleep related restless leg syndrome Acetaminophen 650 p.o. every 6 hours as needed fever Holding meloxicam. Discontinue ketorolac CV: Congestive heart failure systolic unknown if chronic or acute echocardiogram completed results pending History of essential hypertension Hyperlipidemia Elevated troponin 0 0.15 likely demand ischemia type II Home medications include amlodipine 10 mg daily for hypertension. Home medications include aspirin 81 mg daily. Home medication is simvastatin. Currently on atorvastatin 10 mg daily for dyslipidemia. Continue Stat EKG and troponin ordered. 2D echocardiogram The left ventricular systolic function is moderately reduced with an estimated ejection fraction in the range of 40-45%. Normal left ventricular size. Wall thickness is measured at the upper limits of normal. No regional wall motion abnormalities are present Currently on budesonide 2 mg intravenous twice daily. 1 dose of acetazolamide x1 now. 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 Repeat ABG pending. 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 Follow trends. No indication for transfusion of blood products at this time GI: Cholelithiasis Colonic diverticulosis Ventral hernia Abdominal CT revealed a 2.9 x 2.5 similar gallstone/nonobstructing. No signs of inflammation. Ultrasound of gallbladder revealed normal common bile duct. Large stone without obstruction. See above HIDA scan ordered : Bilateral nephrolithiasis with nonobstructing calculi Evaluated by urology. KUB revealed no bladder stone. Endo: Diabetes mellitus Sliding scale insulin aspart insulin to maintain euglycemia TSH was 0.757 on admission Renal: Acute kidney injury Creatinine currently 1.1 Monitor urine output Accurate i's and O's Avoid nephrotoxic medication Heme: Thrombocytopenia Monitor CBC daily. Follow trends. No indication for transfusion of blood products at this time ID: Blood cultures 2, sputum and influenza a and B ordered Negative UA on admission Started piperacillin/tazobactam and vancomycin day #1 MSK: Elevated BMI Weight loss encouraged FEN: Replace electrolytes as clinically indicated Access -Utilize peripheral IV. Central line if indicated Prophylaxis -GI -pantoprazole -DVT - SCD/enoxaparin 35 minutes critical care time Code Status: Full code Discussed Condition With: Patient. No family available. Care plan discussed and all questions answered.
[2017-12-24 16:03] LABS: ABG Base Excess 11.6 mmol/L (-2-2); ABG PCO2 102 mmHg (38-42); ABG PO2 58 mmHG (61-120)
[2017-12-24] MEDS ORDERED: Etomidate Inj 40 MG/20 ML Vial IV.PUSH ONE ×2 (16:13→16:22)
[2017-12-24] MEDS ORDERED: Propofol Inj 500 MG/50 ML Vial ONE (16:14)
--- NOTE | 2017-12-24 16:21 | XR ---
EXAM DATE: 12/24/2017 4:15 PM EDT AGE/SEX: 72 years / Female INDICATIONS: Shortness of breath. CLINICAL DATA: This is the patient's subsequent encounter. Patient reports that signs and symptoms h ave been present for 2 days and indicates a pain score of 0/10. MEDICAL/SURGICAL HISTORY: Congestive heart failure. Chronic obstructive pulmonary disease. Hy pertension. Asthma. Diabetes. None. COMPARISON: [facility] [place], CHEST 2V PA&LAT, 12/24/2017. . FINDINGS: A single AP view of the chest demonstrates bilateral pulmonary infiltrates most pronounced within the right upper lobe and right lower lobe. The appearance is unchanged. No effusions. Cardiomegaly noted . Pulmonary vascular engorgement. CONCLUSION: Unchanged cardiomegaly with pulmonary vascular engorgement and bilateral pulmonary infiltrates. Pulmo nary edema suspected. Electronically signed by: Laron Knowles MD 12/24/2017 4:20 PM EDT
--- NOTE | 2017-12-24 16:39 | P.PCN ---
Date of procedure: 12/24/17 Pre-op diagnosis: Acute respiratory failure Post-op diagnosis: same Procedure: DATE: 12/24/2017 PROCEDURE: Orotracheal intubation INDICATION: Acute respiratory failure DETAILS OF PROCEDURE The patient was placed in optimal position and preoxygenated with 100% FiO2 via bag valve mask. At the start oxygen saturation was 100%. The patient was administered 20 mg etomidate IV and 50 milligrams rocuronium IV. I entered the oropharynx with a size 4 laryngoscope blade and obtained a grade 3 view of the airway. On single attempt a size 8.0 cuffed endotracheal tube was passed through the vocal cords. Correct tube location was confirmed with end tidal CO2 detector and by auscultating over bilateral lung cortés. The endotracheal tube was secured with adhesive tape at a depth of 24 cm at the lips. The patient was connected to the ventilator. The patient tolerated the procedure well without any apparent complications. Oxygen saturations were maintained greater than 95% all times. STAT chest x-ray pending at time of dictation.
[2017-12-24] MEDS: Pantoprazole Inj 40 MG Vial IV.PUSH SCH (16:47)
[2017-12-24] MEDS ORDERED: Polyvinyl Alcohol/Povidone PF Opth Drops 0.4 ML Dropperette EACH EYE ONE (17:00)
[2017-12-24] MEDS ORDERED: Vancomycin Consult Pharmacy OTHER PRN (17:02)
--- NOTE | 2017-12-24 17:12 | XR ---
EXAM DATE: 12/24/2017 5:09 PM EDT AGE/SEX: 72 years / Female INDICATIONS: Post intubation. CLINICAL DATA: This is the patient's subsequent encounter. Patient reports that signs and symptoms h ave been present for 2 days and indicates a pain score of Nonresponsive. MEDICAL/SURGICAL HISTORY: . Congestive heart failure. Chronic obstructive pulmonary disease. Hy pertension. Asthma. Diabetes. None. COMPARISON: [facility] [place], CHEST 1V SINGLE AP, 12/24/2017. . FINDINGS: A single portable frontal view the chest is blurred by motion artifact. An endotracheal tube tip is s een 1 cm from the shannan. Nasogastric tube courses off the inferior margin of the film. A linear dens ity overlies the left lung base likely relating to a subpulmonic chest tube. No pneumothorax. Bibasil ar scattered parenchymal consolidations more pronounced on the right. These are stable. Heart is mild ly enlarged. CONCLUSION: Tip of endotracheal tube 1 cm from the shannan. Unchanged bilateral infiltrates. Electronically signed by: Laron Knowles MD 12/24/2017 5:11 PM EDT
[2017-12-24] MEDS: Sodium Chloride 0.45 % Inj 1,000 ML IV.CONT SCH (17:39)
[2017-12-24 17:40] LABS: Troponin I 0.1 ng/mL (0.02-0.05)
[2017-12-24] MEDS: Propofol 1000 mg/100 ml Inj 1,000 MG/100 ML BOTTLE IV.CONT PRN ×2 (17:53→21:32)
[2017-12-24] MEDS: Montelukast 10 MG Tablet PO SCH (17:56)
[2017-12-24 18:14] LABS: ABG Base Excess 11.2 mmol/L (-2-2); ABG PCO2 53 mmHg (38-42); ABG PO2 50 mmHG (61-120)
[2017-12-24] MEDS ORDERED: Vancomycin Inj 2,000 MG in Sodium Chlor 0.9% Inj 500 ML IV.SIG ONE (20:00)
[2017-12-24] MEDS: Chlorhexidine 0.12% Oral Kit 15 ML UDC OROPHARYNG SCH (21:19)
[2017-12-24] MEDS: Piperacil/Tazo 2.25 GM Premix 50 ML IV.SIG SCH (21:19)
[2017-12-24] MEDS: MethylPREDNISolone Sod Succinate Inj 40 MG/ML Vial IV.PUSH SCH (21:20)
--- NOTE | 2017-12-24 22:14 | ECG ---
Date Performed: 12/23/2017 Time Performed: 17:11:46 PTAGE: 72 years EKG: Sinus rhythm with frequent multifocal PVCs. Left ventricular hypertrophy Lateral T wave changes may be due to hyp ertrophy and/or ischemia Abnormal ECG NO PREVIOUS TRACING DOCTOR: Edi Michaud Interpretating Date/Time 12/24/2017 22:10:34
[2017-12-25] MEDS: Oral Hygiene Kit OROPHARYNG SCH ×3 (00:44→16:56)
[2017-12-25] MEDS ORDERED: Diatrizoate Meglum/Diatrizoate Sod Liq 9 ML UDC PO ONE (01:47)
[2017-12-25] MEDS: Piperacil/Tazo 2.25 GM Premix 50 ML IV.SIG SCH ×4 (02:09→20:27)
--- NOTE | 2017-12-25 03:59 | CT ---
EXAM DATE: 12/25/2017 3:35 AM EDT AGE/SEX: 72 years / Female INDICATIONS: Right flank pain CLINICAL DATA: This is the patient's initial encounter. Patient reports that signs and symptoms have been present for 1 day and indicates a pain score of Nonresponsive. MEDICAL/SURGICAL HISTORY: Asthma. Chronic obstructive pulmonary disease. Congestive heart dolores lure. Hypertension diabetes Hysterectomy. ORAL CONTRAST: Prescribed oral contrast ingested. RADIATION DOSE: 31.40 CTDI (mGy) COMPARISON: [facility] [place], CT ABDOMEN & PELVIS W/O CONTRAST, 12/23/2017. . TECHNIQUE: Multiple contiguous axial images were obtained through the abdomen and pelvis following b olus infusion of 95 ml Omnipaque 350 (iohexol) nonionic water-soluble contrast as a single exam dos e. Prescribed oral contrast ingested. Using automated exposure control and adjustment of the mA and/ or kV according to patient size, radiation dose was kept as low as reasonably achievable to obtain op timal diagnostic quality images. DICOM format image data is available electronically for review and comparison. FINDINGS: LOWER LUNGS: Bibasal airspace consolidation progressed from prior exam. Trace right pleural effusion . LIVER: Mild diffusely decreased hepatic attenuation without intrahepatic ductal dilatation. Subcenti meter hypodense cystic lesion near the dome of the liver in the posterior right lobe is too small to fully characterize. Redemonstration of rim calcified gallstone in the gallbladder. SPLEEN: Homogeneous density without enlargement. PANCREAS: Normal in appearance. KIDNEYS: Kidneys are symmetrical in size and demonstrate symmetrical enhancement. The 8mm renal calc ulus noted in the central right renal pelvis is not demonstrated on current exam. Additional ill-defi edgardo calcifications in the medullary portions of the kidneys noted on prior exam are obscured by contr ast. There is a solid enhancing mass in the anterior inferior pole the right kidney measuring 3.4 x 3 .9 cm concerning for renal cell carcinoma. ADRENAL GLANDS: Subcentimeter right adrenal mass which demonstrates indeterminate density. 2.8 cm le ft adrenal mass which demonstrates very low density and yesterday's noncontrast exam and therefore co nsistent with adenoma. AORTA: Aubrie-aneurysmal. BOWEL/MESENTERY: Large ventral abdominal hernia containing portions of normal-appearing large and sm all bowel. Moderate to severe sigmoid and scattered colonic diverticulosis without significant inflam matory change to suggest diverticulitis. No significant free fluid or drainable fluid collection. Cushing el loops are normal in caliber without evidence for obstruction. ABDOMINAL WALL: Large ventral abdominal hernia, as above. BLADDER: Completely decompressed secondary to Hawley catheter. No radiopaque calculi. REPRODUCTIVE: Grossly unremarkable. BONY STRUCTURES: Degenerative spondylosis of the lumbar spine. CONCLUSION: 1. 8 mm renal calculus in the central right renal pelvis noted on 12/23/2017 CT exam is no longer vis ualized and may have passed. No hydronephrosis. 2. Additional ill-defined bilateral medullary calcifications are likely obscured by contrast in toda y's exam. 3. 3.4 x 3.9 cm enhancing solid mass in the anterior inferior pole of the right kidney concerning fo r renal cell carcinoma until proven otherwise. 4. Prominent colonic diverticulosis without evidence for diverticulitis. 5. Large ventral abdominal hernia containing portions of normal-appearing large and small bowel. No evidence for bowel obstruction. 6. Cholelithiasis. 7. Progressive bibasilar airspace consolidation with new trace right pleural effusion. Although find ings may reflect atelectasis, consider aspiration in the appropriate clinical setting. 8. 2.8 cm left adrenal adenoma. Subcentimeter right adrenal mass with indeterminate density. This ca n be further characterized with adrenal mass CT/MRI exam as clinically appropriate on an outpatient b asis. 9. Additional ancillary findings, as above. Electronically signed by: Abel Ch MD 12/25/2017 3:57 AM EDT
[2017-12-25 05:59] LABS: Baso % (Auto) 0.2 % (0.0-2.0); Hematocrit 38.1 % (35.0-46.0); Hemoglobin 12.1 gm/dL (11.6-15.3); Lymph # (Auto) 1.3 th/mm3 (1.0-4.8); Lymph % (Auto) 15.2 % (9.0-44.0); Mean Corpuscular HGB Conc 31.7 % (32.0-36.0); Mean Corpuscular Hemoglobin 29.3 pg (27.0-34.0); Mean Corpuscular Volume 92.3 fL (80.0-100.0); Mean Platelet Volume 9.4 fL (7.0-11.0); Mono # (Auto) 0.9 th/mm3 (0.0-0.9); Mono % (Auto) 10.6 % (0.0-8.0); Neut # (Auto) 6.2 th/mm3 (1.8-7.7); Platelet Count 152 th/mm3 (150-450); Red Blood Count 4.12 mil/mm3 (4.00-5.30); Red Cell Distribution Width 14.6 % (11.6-17.2); White Blood Count 8.3 th/mm3 (4.0-11.0)
[2017-12-25 06:05] LABS: Activated Partial Thrombo Time 27.9 sec (24.3-30.1); INR 1.1 Ratio; Prothrombin Time 10.7 sec (9.8-11.6)
[2017-12-25] MEDS: Propofol 1000 mg/100 ml Inj 1,000 MG/100 ML BOTTLE IV.CONT PRN ×4 (06:10→21:59)
[2017-12-25 06:28] LABS: Alanine Aminotransferase 35 U/L (10-53); Albumin 2.9 g/dL (3.4-5.0); Alkaline Phosphatase 93 U/L (45-117); Amylase 93 U/L (25-115); Anion Gap 9 meq/L (5-15); Aspartate Aminotransferase 19 U/L (15-37); Blood Urea Nitrogen 18 mg/dL (7-18); Calcium 8.5 mg/dL (8.5-10.1); Carbon Dioxide 33.9 meq/L (21.0-32.0); Chloride 98 meq/L (98-107); Glomerular Filtration Rate 40 mL/min (>89); Glucose,Random 119 mg/dL (74-106); Lipase 77 U/L (73-393); Magnesium 1.8 mg/dL (1.5-2.5); Phosphorus 0.4 mg/dL (2.5-4.9); Potassium 3.4 meq/L (3.5-5.1); Sodium 141 meq/L (136-145); Total Protein 7.1 g/dL (6.4-8.2)
[2017-12-25] MEDS ORDERED: Vancomycin Inj 1,250 MG in Sodium Chlor 0.9% Inj 250 ML IV.SIG SCH (08:00)
--- NOTE | 2017-12-25 08:29 | P.PNFP ---
Subjective Interval history: Following rounds yesterday, Ms Preston's respiratory status worsened acutely to acute hypoxic, hypercapnic respiratory failure and urinary retention s/p Bumex resulting in Halicat being called at 2:48PM. Pt was transferred to [facility] and critical care consulted. Pt was intubated, sedated and placed on the ventilator, broad spectrum antibiotic treatment started with vanc, zosyn and doxycycline. Hawley placement during Halicat resulted in 600 mls out almost immediately and has resulted in total UOP 2250 mls since yesterday afternoon. [address] abdomen/pelvis shows a renal mass suspicious for cancer a renal adenoma and a ventral hernia with normal small and large bowel inside and pt has passed her 8 mm renal stone noted on previous CT. This morning pt is intubated and sedated on Propofol with PVRC/AC at 50% FiO2. Abnormal labs include Lactate 3.9, K+ 3.2 , Cr 1.55, Phos 0.4, BNP 369, but with ammonia <10 and CBC wnl. <Az Hood III H - 12/25/17 14:17> Results - Labs Result diagrams: 12/25/17 05:35 12/25/17 05:28 <Danielito Cast L - 12/25/17 18:15> Abnormal lab results 12/24/17 12/25/17 12/25/17 Range/Units 18:06 05:28 05:35 MCHC 31.7 L (32.0-36.0) % Neut % (Auto) 74.0 H (16.0-70.0) % [place] % (Auto) 10.6 H (0.0-8.0) % O2 Saturation 88 L* (90-100) % ABG pH 7.45 H (7.380-7.420) ABG pCO2 53 H* (38-42) mmHg ABG pO2 50 L* (61-120) mmHG ABG HCO3 36 H (22-26) mmol/L ABG Base Excess 11.2 H (-2-2) mmol/L Potassium 3.4 L D (3.5-5.1) meq/L Carbon Dioxide 33.9 H (21.0-32.0) meq/L Creatinine 1.55 H (0.50-1.00) mg/dL Estimated GFR 40 L (>89) mL/min POC Glucose (68-110) mg/dl Random Glucose 119 H (74-106) mg/dL Lactic Acid (0.4-2.0) mmol/L Phosphorus 0.4 L (2.5-4.9) mg/dL Ammonia (11-32) mcmol/L B-Natriuretic Peptide (0-100) pg/mL Albumin 2.9 L (3.4-5.0) g/dL 12/25/17 12/25/17 12/25/17 Range/Units 05:38 05:38 05:38 MCHC (32.0-36.0) % Neut % (Auto) (16.0-70.0) % [place] % (Auto) (0.0-8.0) % O2 Saturation (90-100) % ABG pH (7.380-7.420) ABG pCO2 (38-42) mmHg ABG pO2 (61-120) mmHG ABG HCO3 (22-26) mmol/L ABG Base Excess (-2-2) mmol/L Potassium (3.5-5.1) meq/L Carbon Dioxide (21.0-32.0) meq/L Creatinine (0.50-1.00) mg/dL Estimated GFR (>89) mL/min POC Glucose (68-110) mg/dl Random Glucose (74-106) mg/dL Lactic Acid 3.9 H (0.4-2.0) mmol/L Phosphorus (2.5-4.9) mg/dL Ammonia Less than 10 L (11-32) mcmol/L B-Natriuretic Peptide 362 H (0-100) pg/mL Albumin (3.4-5.0) g/dL 12/25/17 12/25/17 Range/Units 08:40 17:19 MCHC (32.0-36.0) % Neut % (Auto) (16.0-70.0) % [place] % (Auto) (0.0-8.0) % O2 Saturation (90-100) % ABG pH (7.380-7.420) ABG pCO2 (38-42) mmHg ABG pO2 (61-120) mmHG ABG HCO3 (22-26) mmol/L ABG Base Excess (-2-2) mmol/L Potassium (3.5-5.1) meq/L Carbon Dioxide (21.0-32.0) meq/L Creatinine (0.50-1.00) mg/dL Estimated GFR (>89) mL/min POC Glucose 119 H 133 H (68-110) mg/dl Random Glucose (74-106) mg/dL Lactic Acid (0.4-2.0) mmol/L Phosphorus (2.5-4.9) mg/dL Ammonia (11-32) mcmol/L B-Natriuretic Peptide (0-100) pg/mL Albumin (3.4-5.0) g/dL Short CBC 12/25/17 Range/Units 05:35 WBC 8.3 (4.0-11.0) th/mm3 Hgb 12.1 (11.6-15.3) gm/dL Hct 38.1 (35.0-46.0) % Plt Count 152 (150-450) th/mm3 BMP 12/25/17 05:28 Sodium 141 Potassium 3.4 L D Chloride 98 Carbon Dioxide 33.9 H BUN 18 Creatinine 1.55 H Calcium 8.5 Liver Function 12/25/17 Range/Units 05:28 Total Bilirubin 0.9 (0.2-1.0) mg/dL AST 19 (15-37) U/L ALT 35 (10-53) U/L Alkaline Phosphatase 93 (45-117) U/L Albumin 2.9 L (3.4-5.0) g/dL <Danielito Cast L - 12/25/17 18:15> Abnormal lab results 12/24/17 12/24/17 12/24/17 Range/Units 08:13 12:14 14:40 MCHC (32.0-36.0) % Neut % (Auto) (16.0-70.0) % [place] % (Auto) (0.0-8.0) % O2 Saturation (90-100) % ABG pH 7.13 L* (7.380-7.420) ABG pCO2 123 H* (38-42) mmHg ABG pO2 (61-120) mmHG ABG HCO3 40 H (22-26) mmol/L ABG Base Excess 10.5 H (-2-2) mmol/L Potassium (3.5-5.1) meq/L Carbon Dioxide (21.0-32.0) meq/L Creatinine (0.50-1.00) mg/dL Estimated GFR (>89) mL/min POC Glucose 129 H 128 H (68-110) mg/dl Random Glucose (74-106) mg/dL Lactic Acid (0.4-2.0) mmol/L Phosphorus (2.5-4.9) mg/dL Ammonia (11-32) mcmol/L Troponin I (0.02-0.05) ng/mL B-Natriuretic Peptide (0-100) pg/mL Albumin (3.4-5.0) g/dL 12/24/17 12/24/17 12/24/17 Range/Units 15:55 16:58 16:59 MCHC (32.0-36.0) % Neut % (Auto) (16.0-70.0) % [place] % (Auto) (0.0-8.0) % O2 Saturation 85 L* (90-100) % ABG pH 7.21 L* (7.380-7.420) ABG pCO2 102 H* (38-42) mmHg ABG pO2 58 L* (61-120) mmHG ABG HCO3 40 H (22-26) mmol/L ABG Base Excess 11.6 H (-2-2) mmol/L Potassium (3.5-5.1) meq/L Carbon Dioxide (21.0-32.0) meq/L Creatinine (0.50-1.00) mg/dL Estimated GFR (>89) mL/min POC Glucose 141 H (68-110) mg/dl Random Glucose (74-106) mg/dL Lactic Acid (0.4-2.0) mmol/L Phosphorus (2.5-4.9) mg/dL Ammonia (11-32) mcmol/L Troponin I 0.10 H (0.02-0.05) ng/mL B-Natriuretic Peptide (0-100) pg/mL Albumin (3.4-5.0) g/dL 12/24/17 12/25/17 12/25/17 Range/Units 18:06 05:28 05:35 MCHC 31.7 L (32.0-36.0) % Neut % (Auto) 74.0 H (16.0-70.0) % [place] % (Auto) 10.6 H (0.0-8.0) % O2 Saturation 88 L* (90-100) % ABG pH 7.45 H (7.380-7.420) ABG pCO2 53 H* (38-42) mmHg ABG pO2 50 L* (61-120) mmHG ABG HCO3 36 H (22-26) mmol/L ABG Base Excess 11.2 H (-2-2) mmol/L Potassium 3.4 L D (3.5-5.1) meq/L Carbon Dioxide 33.9 H (21.0-32.0) meq/L Creatinine 1.55 H (0.50-1.00) mg/dL Estimated GFR 40 L (>89) mL/min POC Glucose (68-110) mg/dl Random Glucose 119 H (74-106) mg/dL Lactic Acid (0.4-2.0) mmol/L Phosphorus 0.4 L (2.5-4.9) mg/dL Ammonia (11-32) mcmol/L Troponin I (0.02-0.05) ng/mL B-Natriuretic Peptide (0-100) pg/mL Albumin 2.9 L (3.4-5.0) g/dL 12/25/17 12/25/17 12/25/17 Range/Units 05:38 05:38 05:38 MCHC (32.0-36.0) % Neut % (Auto) (16.0-70.0) % [place] % (Auto) (0.0-8.0) % O2 Saturation (90-100) % ABG pH (7.380-7.420) ABG pCO2 (38-42) mmHg ABG pO2 (61-120) mmHG ABG HCO3 (22-26) mmol/L ABG Base Excess (-2-2) mmol/L Potassium (3.5-5.1) meq/L Carbon Dioxide (21.0-32.0) meq/L Creatinine (0.50-1.00) mg/dL Estimated GFR (>89) mL/min POC Glucose (68-110) mg/dl Random Glucose (74-106) mg/dL Lactic Acid 3.9 H (0.4-2.0) mmol/L Phosphorus (2.5-4.9) mg/dL Ammonia Less than 10 L (11-32) mcmol/L Troponin I (0.02-0.05) ng/mL B-Natriuretic Peptide 362 H (0-100) pg/mL Albumin (3.4-5.0) g/dL Short CBC 12/25/17 Range/Units 05:35 WBC 8.3 (4.0-11.0) th/mm3 Hgb 12.1 (11.6-15.3) gm/dL Hct 38.1 (35.0-46.0) % Plt Count 152 (150-450) th/mm3 BMP 12/25/17 05:28 Sodium 141 Potassium 3.4 L D Chloride 98 Carbon Dioxide 33.9 H BUN 18 Creatinine 1.55 H Calcium 8.5 Cardiac Enzymes 12/24/17 Range/Units 16:59 Total Creatine Kinase 75 (26-192) U/L Troponin I 0.10 H (0.02-0.05) ng/mL Liver Function 12/25/17 Range/Units 05:28 Total Bilirubin 0.9 (0.2-1.0) mg/dL AST 19 (15-37) U/L ALT 35 (10-53) U/L Alkaline Phosphatase 93 (45-117) U/L Albumin 2.9 L (3.4-5.0) g/dL <Sana GARZAAz H - 12/25/17 08:29> - Imaging Impressions Abdomen/Pelvis CT 12/25/17 00:00 CONCLUSION: 1. 8 mm renal calculus in the central right renal pelvis noted on 12/23/2017 CT exam is no longer visualized and may have passed. No hydronephrosis. 2. Additional ill-defined bilateral medullary calcifications are likely obscured by contrast in today's exam. 3. 3.4 x 3.9 cm enhancing solid mass in the anterior inferior pole of the right kidney concerning for renal cell carcinoma until proven otherwise. 4. Prominent colonic diverticulosis without evidence for diverticulitis. 5. Large ventral abdominal hernia containing portions of normal-appearing large and small bowel. No evidence for bowel obstruction. 6. Cholelithiasis. 7. Progressive bibasilar airspace consolidation with new trace right pleural effusion. Although findings may reflect atelectasis, consider aspiration in the appropriate clinical setting. 8. 2.8 cm left adrenal adenoma. Subcentimeter right adrenal mass with indeterminate density. This can be further characterized with adrenal mass CT/ MRI exam as clinically appropriate on an outpatient basis. 9. Additional ancillary findings, as above. Chest X-Ray 12/25/17 00:00 CONCLUSION: Unchanged exam. Radiographic pattern suggesting pulmonary edema. <Danielito Cast - 12/25/17 18:15> Impressions Abdomen X-Ray 12/24/17 00:00 CONCLUSION: Negative examination. No discrete calculi. Chest X-Ray 12/24/17 00:00 CONCLUSION: Tip of endotracheal tube 1 cm from the shannan. Unchanged bilateral infiltrates. Chest X-Ray 12/24/17 10:30 CONCLUSION: Bilateral parenchymal consolidation. Chest X-Ray 12/24/17 15:44 CONCLUSION: Unchanged cardiomegaly with pulmonary vascular engorgement and bilateral pulmonary infiltrates. Pulmonary edema suspected. Abdomen/Pelvis CT 12/25/17 00:00 CONCLUSION: 1. 8 mm renal calculus in the central right renal pelvis noted on 12/23/2017 CT exam is no longer visualized and may have passed. No hydronephrosis. 2. Additional ill-defined bilateral medullary calcifications are likely obscured by contrast in today's exam. 3. 3.4 x 3.9 cm enhancing solid mass in the anterior inferior pole of the right kidney concerning for renal cell carcinoma until proven otherwise. 4. Prominent colonic diverticulosis without evidence for diverticulitis. 5. Large ventral abdominal hernia containing portions of normal-appearing large and small bowel. No evidence for bowel obstruction. 6. Cholelithiasis. 7. Progressive bibasilar airspace consolidation with new trace right pleural effusion. Although findings may reflect atelectasis, consider aspiration in the appropriate clinical setting. 8. 2.8 cm left adrenal adenoma. Subcentimeter right adrenal mass with indeterminate density. This can be further characterized with adrenal mass CT/ MRI exam as clinically appropriate on an outpatient basis. 9. Additional ancillary findings, as above. <Mana Hood IIIy H - 12/25/17 08:29> Physical Exam Vital signs: Vital Signs 12/24/17 20:00 12/24/17 21:10 12/24/17 23:25 Temperature 97.8 F Pulse Rate 96 H 97 H 116 H Respiratory Rate 29 H 18 18 Blood Pressure Pulse Oximetry 99 99 96 12/25/17 00:00 12/25/17 03:10 12/25/17 04:00 Temperature 99.6 F 97.8 F Pulse Rate 108 H 94 H Respiratory Rate 18 17 Blood Pressure 128/72 126/82 Pulse Oximetry 96 100 99 12/25/17 04:20 12/25/17 07:25 12/25/17 08:15 Temperature 99.6 F Pulse Rate 92 H 87 93 H Respiratory Rate 18 18 18 Blood Pressure 154/95 H Pulse Oximetry 93 L 99 97 12/25/17 08:30 12/25/17 08:45 12/25/17 09:00 Temperature Pulse Rate 92 H 92 H 93 H Respiratory Rate 18 18 18 Blood Pressure 148/87 H 142/81 H 141/75 H Pulse Oximetry 97 98 98 12/25/17 09:15 12/25/17 09:30 12/25/17 09:45 Temperature Pulse Rate 90 91 H 92 H Respiratory Rate 18 18 18 Blood Pressure 154/91 H 176/102 H 170/95 H Pulse Oximetry 99 97 97 12/25/17 10:00 12/25/17 10:05 12/25/17 10:15 Temperature Pulse Rate 94 H 95 H 94 H Respiratory Rate 18 18 18 Blood Pressure 199/97 H 114/56 L 104/55 L Pulse Oximetry 94 L 75 L 98 12/25/17 10:30 12/25/17 10:45 12/25/17 11:00 Temperature Pulse Rate 96 H 93 H 96 H Respiratory Rate 18 18 18 Blood Pressure 112/73 101/65 112/77 Pulse Oximetry 97 99 97 12/25/17 11:15 12/25/17 11:30 12/25/17 11:45 Temperature Pulse Rate 94 H 94 H 96 H Respiratory Rate 18 18 18 Blood Pressure 122/79 123/78 121/75 Pulse Oximetry 96 95 95 12/25/17 12:00 12/25/17 12:15 12/25/17 12:30 Temperature 98.5 F Pulse Rate 97 H 96 H 97 H Respiratory Rate 18 18 18 Blood Pressure 120/73 122/73 125/77 Pulse Oximetry 94 L 93 L 93 L 12/25/17 12:45 12/25/17 13:00 12/25/17 13:15 Temperature Pulse Rate 96 H 95 H 95 H Respiratory Rate 18 18 18 Blood Pressure 130/81 131/88 125/81 Pulse Oximetry 94 L 93 L 94 L 12/25/17 13:30 12/25/17 13:45 12/25/17 14:00 Temperature Pulse Rate 101 H 100 H 100 H Respiratory Rate 18 18 18 Blood Pressure 123/75 125/73 125/72 Pulse Oximetry 94 L 95 95 12/25/17 14:15 12/25/17 14:30 12/25/17 14:45 Temperature Pulse Rate 97 H 100 H 100 H Respiratory Rate 18 18 20 Blood Pressure 120/68 113/69 109/67 Pulse Oximetry 95 96 95 12/25/17 14:50 12/25/17 15:00 12/25/17 15:16 Temperature Pulse Rate 100 H 100 H 100 H Respiratory Rate 18 18 18 Blood Pressure 115/84 104/83 Pulse Oximetry 95 96 93 L 12/25/17 15:31 12/25/17 15:45 12/25/17 16:00 Temperature Pulse Rate 100 H 99 H 97 H Respiratory Rate 18 18 18 Blood Pressure 122/75 124/80 Pulse Oximetry 91 L 97 96 12/25/17 16:01 12/25/17 16:15 12/25/17 16:30 Temperature 99.5 F Pulse Rate 97 H 97 H 97 H Respiratory Rate 18 18 18 Blood Pressure 112/76 108/73 110/73 Pulse Oximetry 97 95 94 L 12/25/17 16:46 12/25/17 17:00 12/25/17 17:16 Temperature Pulse Rate 106 H 100 H 101 H Respiratory Rate 19 18 31 H Blood Pressure 133/63 112/58 L 109/68 Pulse Oximetry 90 L 96 96 Intake & Output 12/24/17 12/25/17 12/25/17 18:59 06:59 18:59 Intake Total 820 / 820 1250 / 1250 Output Total 750 / 750 2250 / 2250 Balance -750 / -750 -1430 / -1430 1250 / 1250 Weight 113.5 kg Intake: IV 820 / 820 1250 / 1250 Diprivan 1000 mg/100 ml Inj 1, 200 / 200 200 / 200 000 mg In 100 ml @ 5 MCG/KG/MIN 3.513 mls/hr IV.CONT TITRATE PRN Rx#:[id number] 1/2 Normal Saline Inj 1,000 ML 1000 / 1000 @ 42 mls/hr IV.CONT .[id number] [facility] Rx#:[id number] Zosyn 2.25 GM Premix 50 ML @ 100 / 100 50 / 50 100 mls/hr IV.SIG Q6H UZAIR Rx#: [id number] Vancomycin Inj 2,000 MG In NS 520 / 520 Inj 500 ML @ 250 mls/hr IV.SIG ONCE ONE Rx#:[id number] Output: Urine 750 / 750 Urine Amount (Catheter) 2250 / 2250 Indwelling Urethral Catheter 2250 / 2250 Other: # Bowel Movements 0 <Danielito Cast L - 12/25/17 18:15> Vital Signs 12/24/17 12:00 12/24/17 12:56 12/24/17 16:00 Temperature 98.0 F 97.8 F Pulse Rate 94 H 100 H Respiratory Rate 22 25 H Blood Pressure 114/64 122/77 Pulse Oximetry 95 95 94 L 12/24/17 16:39 12/24/17 16:48 12/24/17 20:00 Temperature 97.8 F Pulse Rate 102 H 96 H Respiratory Rate 18 18 29 H Blood Pressure Pulse Oximetry 99 99 12/24/17 21:10 12/24/17 23:25 12/25/17 00:00 Temperature 99.6 F Pulse Rate 97 H 116 H 108 H Respiratory Rate 18 18 18 Blood Pressure 128/72 Pulse Oximetry 99 96 96 12/25/17 03:10 12/25/17 04:00 12/25/17 04:20 Temperature 97.8 F Pulse Rate 94 H 92 H Respiratory Rate 17 18 Blood Pressure 126/82 Pulse Oximetry 100 99 93 L 12/25/17 07:25 Temperature Pulse Rate 87 Respiratory Rate 18 Blood Pressure Pulse Oximetry 99 Intake & Output 12/24/17 12/25/17 12/25/17 18:59 06:59 18:59 Intake Total 820 / 820 Output Total 750 / 750 2250 / 2250 Balance -750 / -750 -1430 / -1430 Weight 113.5 kg Intake: IV 820 / 820 Diprivan 1000 mg/100 ml Inj 1, 200 / 200 000 mg In 100 ml @ 5 MCG/KG/MIN 3.513 mls/hr IV.CONT TITRATE PRN Rx#:[id number] Zosyn 2.25 GM Premix 50 ML @ 100 / 100 100 mls/hr IV.SIG Q6H UZAIR Rx#: [id number] Vancomycin Inj 2,000 MG In NS 520 / 520 Inj 500 ML @ 250 mls/hr IV.SIG ONCE ONE Rx#:[id number] Output: Urine 750 / 750 Urine Amount (Catheter) 2250 / 2250 Indwelling Urethral Catheter 2250 / 2250 Other: # Bowel Movements 0 <Az Hood III - 12/25/17 08:29> Narrative: GENERAL: Obese female lying in bed intubated, sedated on vent. HEAD: Normocephalic. EYES: Pupils equal and round and reactive. No scleral icterus. ENT: No nasal bleeding or discharge. Mucous membranes pink and dry. NECK: Hard to assess due to pt being unresponsive and body habitus. CARDIOVASCULAR: Regular rate and rhythm. Holosystolic murmur appreciated. RESPIRATORY: No accessory muscle use. Bibasilar crackles distant due to body habitus. PRVC/AC, FiO2 50%, PEEP 5, 18 bpm GASTROINTESTINAL: Abdomen soft, obese. Large ventral hernia present. MUSCULOSKELETAL: Extremities without clubbing, cyanosis. Pedal edema bilaterally, nonpitting NEUROLOGICAL: Intubated and sedated as above. <Az Hood III - 12/25/17 14:17> - Urinary Catheter Management Indwelling Urethral Catheter Cath placed during this visit: no <Danielito Cast - 12/25/17 18:15> no <Az Hood III 12/25/17 14:31> Assessment and Plan - Assessment (1) Right flank pain Code(s): R10.9 - Unspecified abdominal pain Status: Acute (2) CHF (congestive heart failure) Code(s): I50.9 - Heart failure, unspecified Status: Acute (3) Pneumonia Code(s): J18.9 - Pneumonia, unspecified organism Status: Acute (4) BRANDON (acute kidney injury) Code(s): N17.9 - Acute kidney failure, unspecified Status: Acute (5) Elevated troponin Code(s): R74.8 - Abnormal levels of other serum enzymes Status: Acute (6) Diabetes type 2, controlled Code(s): E11.9 - Type 2 diabetes mellitus without complications Status: Acute (7) COPD (chronic obstructive pulmonary disease) Code(s): J44.9 - Chronic obstructive pulmonary disease, unspecified Status: Acute (8) Hyperlipidemia Code(s): E78.5 - Hyperlipidemia, unspecified Status: Acute (9) Hypertension Code(s): I10 - Essential (primary) hypertension Status: Acute (10) Depression Code(s): F32.9 - Major depressive disorder, single episode, unspecified Status : Acute (11) Nutrition, metabolism, and development symptoms Code(s): R63.8 - Other symptoms and signs concerning food and fluid intake Status: Acute <Danielito Cast - 12/25/17 18:15> (1) Right flank pain Code(s): R10.9 - Unspecified abdominal pain Status: Acute Plan: -Urinalysis did not show any evidence of infection or blood -Ultrasound of gallbladder shows large stone, no evidence of biliary obstruction -CT abdomen and pelvis 12/23 notable for multiple calcifications in each kidney as described above. Unsure if any of the stones are the etiology of her pain -CT abdomen and pelvis 12/25 showing absence of renal stones, large ventral hernia with normal-appearing small and large bowel, and 3.4x3.9cm renal mass -Continue Flomax 0.4mg PO daily -Urology consult pending -Will consult Heme/onc as outpt (2) CHF (congestive heart failure) Code(s): I50.9 - Heart failure, unspecified Status: Acute Plan: -CXR 12/24 showing cardiomegaly with pulmonary vascular engorgement and bilateral pulmonary infiltrates with pulm edema suspected -In addition to CHF, pneumonia is on the differential but patient is afebrile with a normal wbc count; pt started on broad spec abx: vanc, zosyn, doxycycline -BNP 236 -> 362 -Bumex 2mg IV BID -Acetazolamide 250 mg IV once 12/24 5PM -Duonebs 2.5 mg q4h -Albuterol neb q2h PRN -Repeat cxr in the am -Continue daily weights -Limit p.o. intake to 1.5 L daily -Echo with reduced LV systolic function and EF 40-45%, normal LV size, wall thickness upper limit normal, no wall abnormalities; RV not well visualized; normal left and right atria. (3) Pneumonia Code(s): J18.9 - Pneumonia, unspecified organism Status: Acute Plan: Pt with increasing bilateral lung opacities on imaging and transferred to [facility] for worsening respiratory failure -Started on IV Vanc 2g q12h, Zosyn 2.25 mg IV q6h -Methylprednisolone 40 mg q6h -Singulair, Pulmicort, duonebs, albuterol nebs as above and below -Blood cx, sputum, influenza A/B (4) BRANDON (acute kidney injury) Code(s): N17.9 - Acute kidney failure, unspecified Status: Acute Plan: -Creatinine mildly elevated at 1.12 on admission. Unknown baseline. -Increased to 1.55 today. -Holding Bumex IV for diuresis as above -Gentle IV fluids at 42 mls/hr due to pt intubated on vent and due to patient's congestive heart failure -Repeat BMP in a.m. (5) Elevated troponin Code(s): R74.8 - Abnormal levels of other serum enzymes Status: Acute Plan: -Troponin 0.05 initially elevated to 0.10 and 0.15 with no chest pain, likely demand ischemia in the setting of mild BRANDON -EKG shows sinus rhythm with occasional PVCs, LVH, and mild ST changes -Continue continuous telemetry (6) Diabetes type 2, controlled Code(s): E11.9 - Type 2 diabetes mellitus without complications Status: Acute Plan: -Medium level sliding scale insulin * 0 units in the past 24 hrs -NPO due to intubation and sedation (7) COPD (chronic obstructive pulmonary disease) Code(s): J44.9 - Chronic obstructive pulmonary disease, unspecified Status: Acute Plan: -On 2 L of oxygen at home at baseline -Continue home Singulair 10 mg qhs -Pulmicort 0.5 neb q12h -Holding prednisone -Continuous oxygen as per [facility] protocol on vent -Breathing treatments as above (8) Hyperlipidemia Code(s): E78.5 - Hyperlipidemia, unspecified Status: Acute Plan: -Continue home atorvastatin (9) Hypertension Code(s): I10 - Essential (primary) hypertension Status: Acute Plan: -Mostly well-controlled -Continue home amlodipine 10 mg PO daily (10) Depression Code(s): F32.9 - Major depressive disorder, single episode, unspecified Status : Acute Plan: -Continue home Wellbutrin 150mg PO BID (11) Nutrition, metabolism, and development symptoms Code(s): R63.8 - Other symptoms and signs concerning food and fluid intake Status: Acute Plan: Fluids: 1/2 NS at 42 mls/hr as per ICU protocol Dietary: NPO due to intubation Electrolytes: Monitor daily and replete as needed; on ICU electrolyte protocol DVT prophylaxis: SCDs and Lovenox <Sana GARZAAz Caro - 12/25/17 14:21> - Assessment and Plan 72 YO AAF w/Hx COPD, CHF, DM intubated, sedated and on ventilator with encephalopathy 2/2 metabolic causes and hypercapnia <Sana GARZAAz Caro - 12/25/17 14:31> Discussed Condition With: Kareem Coker and Segun <Sana GARZAAz - 12/25/17 14:17> - Attending Attestation The exam, history, and the medical decision-making described in the above note were completed with the assistance of the resident physician. I reviewed and agree with the findings presented. 72 year old female presenting with right flank pain, found to have 7.5 mm renal stone on right. Uncertain if renal stone was etiology of patient's pain, but renal stone apparently passed. On day 2 of admission, patient developed altered mental status and increasing O2 needs, found to have severe hypercapnic hypoxemia. She has a history of CHF and COPD. Patient was tried on BiPAP but eventually required intubation and mechanical ventilation. Patient currently is in the intensive care unit. Further workup revealed right lower lobe infiltrate. She is being treated with antibiotics for possible pneumonia. CT abdomen reveal renal mass concerning for renal cell carcinoma. Plan includes weaning off vent as tolerated, diuretics for fluid overload, scheduled breathing treatments, IV steroids, antibiotics for possible pneumonia. Further workup to include evaluation of renal mass and non- obstructing cholelithiasis depending on patient's clinical status. Urology and intensive care are on board. Will communicate daily with family about patient's clinical status. <Danielito Cast - 12/25/17 18:15> <Sana GARZAAz - Last Filed: 12/25/17 14:21> (6) Diabetes type 2, controlled Qualifiers: Diabetes mellitus fpc insulin use: without fpc use Diabetes mellitus complication status: without complication Qualified Code(s): E11.9 - Type 2 diabetes mellitus without complications <Danielito Cast - Last Filed: 12/25/17 18:15> (6) Diabetes type 2, controlled Qualifiers: Diabetes mellitus fpc insulin use: without terminal operator use Diabetes mellitus complication status: without complication Qualified Code(s): E11.9 - Type 2 diabetes mellitus without complications <Az Hood III H - Last Filed: 12/25/17 14:21> (6) Diabetes type 2, controlled Qualifiers: Diabetes mellitus terminal operator insulin use: without terminal operator use Diabetes mellitus complication status: without complication Qualified Code(s): E11.9 - Type 2 diabetes mellitus without complications <Danielito Cast - Last Filed: 12/25/17 18:15> (6) Diabetes type 2, controlled Qualifiers: Diabetes mellitus fpc insulin use: without terminal operator use Diabetes mellitus complication status: without complication Qualified Code(s): E11.9 - Type 2 diabetes mellitus without complications
[2017-12-25] MEDS ORDERED: Magnesium Sulfate Inj 4 GM in Sodium Chlor 0.9% Inj 92 ML IV.SIG PRN (08:32)
[2017-12-25] MEDS ORDERED: Sodium Phosphate Inj 30 MMOL in Sodium Chlor 0.9% Inj 250 ML IV.SIG PRN (08:32)
[2017-12-25] MEDS ORDERED: Magnesium Sulfate Inj 2 GM in Sodium Chlor 0.9% Inj 96 ML IV.SIG PRN (08:32)
[2017-12-25] MEDS ORDERED: Potassium Chlor 20 mEq Premix 20 MEQ/100 ML PIGGYBACK IV.SIG PRN ×2 (08:32)
[2017-12-25] MEDS ORDERED: Potassium Phosphate Inj 30 MMOL in Sodium Chlor 0.9% Inj 250 ML IV.SIG PRN (08:32)
[2017-12-25] MEDS ORDERED: Potassium Chlor 40 mEq Premix 40 MEQ/100 ML PIGGYBACK IV.SIG PRN ×2 (08:32)
[2017-12-25] MEDS ORDERED: Potassium Phosphate 500 MG Soluble Tablet PO PRN ×2 (08:32)
[2017-12-25] MEDS ORDERED: Magnesium Oxide 400 MG Tablet PO PRN (08:32)
[2017-12-25] MEDS ORDERED: Potassium Chloride 25 MEQ Effervescent Tablet PO PRN (08:32)
[2017-12-25] MEDS: Insulin NovoLOG Aspart Correctional Sugar Inj SQ SCH ×4 (09:09→20:27)
[2017-12-25] MEDS: amLODIPine 10 MG Tablet PO SCH (09:39)
[2017-12-25] MEDS: MethylPREDNISolone Sod Succinate Inj 40 MG/ML Vial IV.PUSH SCH ×2 (09:41→17:01)
[2017-12-25] MEDS: Enoxaparin Inj 40 MG/0.4 ML Syringe SQ SCH (09:42)
[2017-12-25] MEDS: Chlorhexidine 0.12% Oral Kit 15 ML UDC OROPHARYNG SCH ×2 (09:44→20:27)
[2017-12-25] MEDS: buPROPion 150 MG 12 HR Tablet PO SCH ×2 (10:41→20:28)
--- NOTE | 2017-12-25 12:09 | P.PNCC ---
Subjective Subjective Remarks/Hospital Course: This is a 72-year-old AA female. Date of admission 12/23/2017. Date of consultation 12/24/2017. Past medical history includes likely chronic systolic heart failure, essential hypertension, hyperlipidemia, diabetes mellitus, elevated BMI, depression, cataracts and COPD. Patient was originally seen at [facility] on 12/22 with chest pain/abdominal pain. At that facility, reportedly had a CT pulmonary revealed no pulmonary embolus and. She was sent home on hydrocodone/acetaminophen. This made her drowsy. She presented to [facility] on 12/23. Essentially, patient received a CT of the abdomen pelvis which revealed a gallstone, bilateral nonobstructing nephrolithiasis colonic diverticulosis and ventral hernia along with a cyst in the right kidney. Patient was receiving hydromorphone for pain management. Patient rapid response team today due to altered mental status. ABG revealed significant CO2 retention. Attempted BiPAP for approximately an hour with minimal improvement of mentation and CO2. Decision was made to emergently intubate. Chest x-ray revealed a right lower lobe infiltrate. Will be started on empiric antibiotics. Stat laboratories including likely, troponin pending. Nuclear medicine hepatobiliary scan pending. Repeat CT abdomen/pelvis pending SUBJ 12/25: Remains intubated sedated critically ill encephalopathy. CT of the chest shows bibasilar consolidation, also large 3.4 and a 3.9 cm right kidney mass suspicious for renal cell carcinoma. A urology consult is pending at this time. On empiric antibiotics for pneumonia sputum and blood cultures are pending at this time. Patient gets agitated on sedation lightening Objective Vital Signs / I&O: Vital Signs 12/24/17 12:56 12/24/17 16:00 12/24/17 16:39 Temperature 97.8 F Pulse Rate 100 H Respiratory Rate 25 H 18 Blood Pressure 122/77 Pulse Oximetry 95 94 L 99 12/24/17 16:48 12/24/17 20:00 12/24/17 21:10 Temperature 97.8 F Pulse Rate 102 H 96 H 97 H Respiratory Rate 18 29 H 18 Blood Pressure Pulse Oximetry 99 99 12/24/17 23:25 12/25/17 00:00 12/25/17 03:10 Temperature 99.6 F Pulse Rate 116 H 108 H Respiratory Rate 18 18 Blood Pressure 128/72 Pulse Oximetry 96 96 100 12/25/17 04:00 12/25/17 04:20 12/25/17 07:25 Temperature 97.8 F Pulse Rate 94 H 92 H 87 Respiratory Rate 17 18 18 Blood Pressure 126/82 Pulse Oximetry 99 93 L 99 12/25/17 11:00 Temperature Pulse Rate 96 H Respiratory Rate 18 Blood Pressure Pulse Oximetry 96 Intake & Output 12/24/17 12/25/17 12/25/17 18:59 06:59 18:59 Intake Total 820 / 820 100 / 100 Output Total 750 / 750 2250 / 2250 Balance -750 / -750 -1430 / -1430 100 / 100 Weight 113.5 kg Intake: IV 820 / 820 100 / 100 Diprivan 1000 mg/100 ml Inj 1, 200 / 200 100 / 100 000 mg In 100 ml @ 5 MCG/KG/MIN 3.513 mls/hr IV.CONT TITRATE PRN Rx#:[id number] Zosyn 2.25 GM Premix 50 ML @ 100 / 100 100 mls/hr IV.SIG Q6H UZAIR Rx#: [id number] Vancomycin Inj 2,000 MG In NS 520 / 520 Inj 500 ML @ 250 mls/hr IV.SIG ONCE ONE Rx#:[id number] Output: Urine 750 / 750 Urine Amount (Catheter) 2250 / 2250 Indwelling Urethral Catheter 2250 / 2250 Other: # Bowel Movements 0 Result Diagrams: 12/25/17 05:35 12/25/17 05:28 Objective Remarks: - Constitutional Intubated sedated, morbidly obese, critically ill - Routine HEENT Exam Head: normocephalic, atraumatic Eye: PERRL, no conjunctival icterus ENT: Orotracheally intubated - Routine Neck Exam Supple, difficult to assess for JVD, no carotid bruit - Routine Respiratory Exam On PRVC/AC, FiO2 50%. Bilateral basilar crackles, diminished air movement. - Routine Cardiovascular Exam Normal S1, S2, tachycardia. Absent murmur - Routine Abdominal Exam Soft, tenderness, guarding, hernia. Abdomen distended, firm, mass - Routine Extremities Exam +Pedal edema. No cyanosis, clubbing - Routine Skin Exam intact - Routine Neurological Exam Intubated heavily sedated for vent synchrony. Moves all extremities on lightening sedation not following commands no focal deficit Assessment and Plan - Assessment and Plan Plan: Neuro/Psych: Acute encephalopathy secondary to metabolic causes and hypercapnia Depressive disorder NOS History of cataracts Propofol for sedation while intubated Goal of RA SS -2, Daily sedation vacation Currently on bupropion 150 mg twice daily/home medication Continue pramipexole 0.25 mg at night for sleep related restless leg syndrome Acetaminophen 650 p.o. every 6 hours as needed fever Holding meloxicam. Discontinue ketorolac CV: Congestive heart failure systolic unknown if chronic or acute echocardiogram completed results pending History of essential hypertension Hyperlipidemia Elevated troponin 0 0.15 likely demand ischemia type II Home medications include amlodipine 10 mg daily for hypertension. Home medications include aspirin 81 mg daily. Home medication is simvastatin. Currently on atorvastatin 10 mg daily for dyslipidemia. Continue 2D echocardiogram LVEF moderately reduced with an estimated ejection fraction in the range of 40-45%. Normal left ventricular size. Wall thickness is measured at the upper limits of normal. No regional wall motion abnormalities are present Currently on budesonide 2 mg intravenous twice daily. s/p 1 dose of acetazolamide Patrick legal counsel Resp: Acute hypoxemic respiratory failure COPD Pneumonia Intubated for hypoxemic and hypercarbic resp failure. PRVC, vent bundle Budesonide aerosols 0.5/2 1 inhalation twice daily Albuterol/ipratropium aerosols every 4 hours with albuterol aerosols every 2 hours as needed for dyspnea Methylprednisolone succinate 40 mg IV twice daily-increase to 60 every 6 Continue montelukast 10 mg daily Chest x-ray/abdominal CT shows bibasilar consolidation Repeat ABG at 1600 Dr. Vicente is her regular rn social work Negative CT pulmonary angiogram at [facility] reported 12/22 Monitor CBC daily. Follow trends. No indication for transfusion of blood products at this time GI: Cholelithiasis Colonic diverticulosis Ventral hernia Abdominal CT revealed a 2.9 x 2.5 similar gallstone/nonobstructing. No signs of inflammation. Ultrasound of gallbladder revealed normal common bile duct. Large stone without obstruction. See above No suspicion of acute cholecystitis, cancel HIDA scan : Bilateral nephrolithiasis with nonobstructing calculi Evaluated by urology. KUB revealed no bladder stone. Endo: Diabetes mellitus Sliding scale insulin aspart insulin to maintain euglycemia TSH was 0.757 on admission Renal: Acute kidney injury Creatinine currently 1.5, continue IV hydration Monitor urine output Accurate i's and O's Avoid nephrotoxic medication Heme: Thrombocytopenia Monitor CBC daily. Follow trends. No indication for transfusion of blood products at this time ID: Bibasilar pneumonia Blood cultures 2, sputum and influenza a and B ordered Negative UA on admission Continue piperacillin/tazobactam and vancomycin day #2 FEN: Replace electrolytes as clinically indicated, replace potassium Access -Utilize peripheral IV. Central line if indicated Prophylaxis -GI -pantoprazole -DVT - SCD/enoxaparin 35 minutes critical care time Remains critically ill with hypoxemic hypercarbic respiratory failure. Septic from most likely from pneumonia. Continue vent support broad-spectrum antibiotic. Remains encephalopathy now with renal failure sitting in
--- NOTE | 2017-12-25 14:35 | P.PNURO ---
Subjective Patient symptoms today: Pt seen and examined. Events noted. Now intubated and sedated. CT scan reviewed. Right LP mass noted. Objective Vital Signs: Vital Signs 12/24/17 16:00 12/24/17 16:39 12/24/17 16:48 Temperature 97.8 F Pulse Rate 100 H 102 H Respiratory Rate 25 H 18 18 Blood Pressure 122/77 Pulse Oximetry 94 L 99 12/24/17 20:00 12/24/17 21:10 12/24/17 23:25 Temperature 97.8 F Pulse Rate 96 H 97 H 116 H Respiratory Rate 29 H 18 18 Blood Pressure Pulse Oximetry 99 99 96 12/25/17 00:00 12/25/17 03:10 12/25/17 04:00 Temperature 99.6 F 97.8 F Pulse Rate 108 H 94 H Respiratory Rate 18 17 Blood Pressure 128/72 126/82 Pulse Oximetry 96 100 99 12/25/17 04:20 12/25/17 07:25 12/25/17 08:15 Temperature 99.6 F Pulse Rate 92 H 87 93 H Respiratory Rate 18 18 18 Blood Pressure 154/95 H Pulse Oximetry 93 L 99 97 12/25/17 08:30 12/25/17 08:45 12/25/17 09:00 Temperature Pulse Rate 92 H 92 H 93 H Respiratory Rate 18 18 18 Blood Pressure 148/87 H 142/81 H 141/75 H Pulse Oximetry 97 98 98 12/25/17 09:15 12/25/17 09:30 12/25/17 09:45 Temperature Pulse Rate 90 91 H 92 H Respiratory Rate 18 18 18 Blood Pressure 154/91 H 176/102 H 170/95 H Pulse Oximetry 99 97 97 12/25/17 10:00 12/25/17 10:05 12/25/17 10:15 Temperature Pulse Rate 94 H 95 H 94 H Respiratory Rate 18 18 18 Blood Pressure 199/97 H 114/56 L 104/55 L Pulse Oximetry 94 L 75 L 98 12/25/17 10:30 12/25/17 10:45 12/25/17 11:00 Temperature Pulse Rate 96 H 93 H 96 H Respiratory Rate 18 18 18 Blood Pressure 112/73 101/65 112/77 Pulse Oximetry 97 99 97 12/25/17 11:15 12/25/17 11:30 09/16/18 11:45 Temperature Pulse Rate 94 H 94 H 96 H Respiratory Rate 18 18 18 Blood Pressure 122/79 123/78 121/75 Pulse Oximetry 96 95 95 12/25/17 12:00 12/25/17 12:15 12/25/17 12:30 Temperature 98.5 F Pulse Rate 97 H 96 H 97 H Respiratory Rate 18 18 18 Blood Pressure 120/73 122/73 125/77 Pulse Oximetry 94 L 93 L 93 L 12/25/17 12:45 12/25/17 13:00 12/25/17 13:15 Temperature Pulse Rate 96 H 95 H 95 H Respiratory Rate 18 18 18 Blood Pressure 130/81 131/88 125/81 Pulse Oximetry 94 L 93 L 94 L 12/25/17 13:30 12/25/17 13:45 12/25/17 14:00 Temperature Pulse Rate 101 H 100 H 100 H Respiratory Rate 18 18 18 Blood Pressure 123/75 125/73 125/72 Pulse Oximetry 94 L 95 95 Intake & Output 12/24/17 12/25/17 12/25/17 18:59 06:59 18:59 Intake Total 820 / 820 100 / 100 Output Total 750 / 750 2250 / 2250 Balance -750 / -750 -1430 / -1430 100 / 100 Weight 113.5 kg Intake: IV 820 / 820 100 / 100 Diprivan 1000 mg/100 ml Inj 1, 200 / 200 100 / 100 000 mg In 100 ml @ 5 MCG/KG/MIN 3.513 mls/hr IV.CONT TITRATE PRN Rx#:[id number] Zosyn 2.25 GM Premix 50 ML @ 100 / 100 100 mls/hr IV.SIG Q6H MARQUEZ Rx#: [id number] Vancomycin Inj 2,000 MG In NS 520 / 520 Inj 500 ML @ 250 mls/hr IV.SIG ONCE ONE Rx#:[id number] Output: Urine 750 / 750 Urine Amount (Catheter) 2250 / 2250 Indwelling Urethral Catheter 2250 / 2250 Other: # Bowel Movements 0 Result Diagrams: 12/25/17 05:35 12/25/17 05:28 Imaging: Impressions Chest X-Ray 12/24/17 00:00 CONCLUSION: Tip of endotracheal tube 1 cm from the shannan. Unchanged bilateral infiltrates. Chest X-Ray 12/24/17 15:44 CONCLUSION: Unchanged cardiomegaly with pulmonary vascular engorgement and bilateral pulmonary infiltrates. Pulmonary edema suspected. Abdomen/Pelvis CT 12/25/17 00:00 CONCLUSION: 1. 8 mm renal calculus in the central right renal pelvis noted on 12/23/2017 CT exam is no longer visualized and may have passed. No hydronephrosis. 2. Additional ill-defined bilateral medullary calcifications are likely obscured by contrast in today's exam. 3. 3.4 x 3.9 cm enhancing solid mass in the anterior inferior pole of the right kidney concerning for renal cell carcinoma until proven otherwise. 4. Prominent colonic diverticulosis without evidence for diverticulitis. 5. Large ventral abdominal hernia containing portions of normal-appearing large and small bowel. No evidence for bowel obstruction. 6. Cholelithiasis. 7. Progressive bibasilar airspace consolidation with new trace right pleural effusion. Although findings may reflect atelectasis, consider aspiration in the appropriate clinical setting. 8. 2.8 cm left adrenal adenoma. Subcentimeter right adrenal mass with indeterminate density. This can be further characterized with adrenal mass CT/ MRI exam as clinically appropriate on an outpatient basis. 9. Additional ancillary findings, as above. Medications and IVs: Active Medications Generic Name Dose Route Start Last Admin Trade Name Freq PRN Reason Stop Dose Admin Acetaminophen 650 mg 12/23/17 13:51 Tylenol PO Q6HR PRN PAIN SCALE 1 TO 2 Al Hydroxide/Mg Hydroxide 30 ml 12/23/17 11:41 Milk Of Magnesia Liq PO Q12H PRN Mild Constipation Albuterol 1 ampul 12/24/17 16:00 12/25/17 10:59 Duoneb Neb (Marquez) NEB 1 ampul Q4HR NEB MARQUEZ Administration Albuterol 2.5 mg 12/24/17 15:31 Albuterol Neb (Prn) NEB Q2HR NEB PRN SHORTNESS OF BREATH Amlodipine Besylate 10 mg 12/23/17 12:45 12/25/17 09:39 Norvasc PO 10 mg DAILY MARQUEZ Administration Atorvastatin Calcium 10 mg 12/24/17 09:00 12/25/17 09:39 Lipitor PO 10 mg DAILY MARQUEZ Administration Budesonide 0.5 mg 12/24/17 20:00 12/25/17 07:25 Pulmocort Respule Neb NEB 0.5 mg Q12HR NEB MARQUEZ Administration Bumetanide 2 mg 12/24/17 18:00 12/25/17 09:41 Bumex Inj IV.PUSH 2 mg BID@0900,1800 MARQUEZ Administration Bupropion HCl 150 mg 12/23/17 12:45 12/25/17 10:41 Wellbutrin Sr PO Not Given BID MARQUEZ Chlorhexidine Gluconate 15 ml 12/24/17 20:00 12/25/17 09:44 Peridex 0.12% Oral Kit OROPHARYNG 15 ml BID@0800,2000 MARQUEZ Administration Dextrose 50 ml 12/23/17 14:01 D50w Vial IV.PUSH UNSCH PRN PER HYPOGLYCEMIA PROTOCOL Doxycycline Hyclate 100 mg 12/24/17 21:00 12/25/17 09:42 Vibratab NG/OG 12/29/17 20:59 100 mg Q12HR MARQUEZ Administration Enoxaparin Sodium 40 mg 12/24/17 09:00 12/25/17 09:42 Lovenox Inj SQ 40 mg DAILY MARQUEZ Administration Glucagon 1 mg 12/23/17 14:01 Glucagon Inj OTHER PRN PRN for Hypoglycemia Protocol Hydromorphone HCl 0.5 mg 12/24/17 10:22 Dilaudid PO Q4H PRN BREAKTHROUGH PAIN Propofol 1,000 mg in 100 mls @ 3.513 mls/hr 12/24/17 16:11 12/25/17 11:44 Diprivan 1000 Mg/100 Ml Inj IV.CONT 20 mcg/kg/min TITRATE PRN 14.05 mls/hr Per Protocol Titration Protocol 5 MCG/KG/MIN Sodium Chloride 1,000 mls @ 42 mls/hr 12/24/17 17:01 12/24/17 17:39 1/2 Normal Saline Inj IV.CONT 42 mls/hr .[id number] MARQUEZ Administration Piperacillin/Tazobactam/Dextrose 50 mls @ 100 mls/hr 12/24/17 20:00 12/25/17 09:44 Zosyn 2.25 Gm Premix IV.SIG 100 mls/hr Q6H MARQUEZ Administration Magnesium Sulfate Inj 4 gm/ 100 mls @ 50 mls/hr 12/25/17 08:32 Sodium Chloride IV.SIG UNSCH PRN For Magnesium 0.9 - 1.1 mg/dL Magnesium Sulfate Inj 2 gm/ 100 mls @ 50 mls/hr 12/25/17 08:32 Sodium Chloride IV.SIG UNSCH PRN For Magnesium 1.2 - 1.6 mg/dL Potassium Chloride 20 meq in 100 mls @ 50 mls/hr 12/25/17 08:32 Kcl 20 Meq Premix Inj IV.SIG Q2H PRN For Potassium 3.3 - 3.5 mEq/L Potassium Chloride 40 meq in 100 mls @ 25 mls/hr 12/25/17 08:32 Kcl 40 Meq Premix Inj IV.SIG UNSCH PRN For Potassium 3.3 - 3.5 mEq/L Potassium Chloride 20 meq in 100 mls @ 50 mls/hr 12/25/17 08:32 Kcl 20 Meq Premix Inj IV.SIG Q2H PRN For Potassium 2.8 - 3.2 mEq/L Potassium Phosphate 30 mmol/ 260 mls @ 42 mls/hr 12/25/17 08:32 Sodium Chloride IV.SIG UNSCH PRN SEE LABEL COMMENTS Potassium Chloride 40 meq in 100 mls @ 25 mls/hr 12/25/17 08:32 Kcl 40 Meq Premix Inj IV.SIG Q2H PRN For Potassium 2.8 - 3.2 mEq/L Sodium Phosphate 30 mmol/ 260 mls @ 42 mls/hr 12/25/17 08:32 Sodium Chloride IV.SIG UNSCH PRN For Phosphorus < 2.5 mg/dL Sodium Chloride 1,000 mls @ 75 mls/hr 12/25/17 12:45 Ns Inj IV.CONT 12/26/17 13:00 .[id number] [facility] Insulin Aspart 0 unit 12/23/17 17:00 12/25/17 12:07 Novolog Insulin Correctional Sugar Inj SQ Not Given ACHS [facility] Protocol Magnesium Oxide 800 mg 12/25/17 08:32 Mag-Ox PO UNSCH PRN For Magnesium 1.2 - 1.6 mg/dL Methylprednisolone Sodium Succinate 40 mg 12/25/17 18:00 Solumedrol Inj IV.PUSH Q6HR [facility] Miscellaneous Information 1 each 12/26/17 07:45 [facility] Ordered Lab Info OTHER 12/26/17 07:46 ONCE ONE Montelukast Sodium 10 mg 12/23/17 18:00 12/24/17 17:56 Singulair PO Not Given QPM [facility] Naloxone HCl 0.4 mg 12/23/17 16:39 Narcan Inj IV.PUSH UNSCH PRN SEE LABEL COMMENTS Ondansetron HCl 4 mg 12/23/17 21:57 12/23/17 22:09 Zofran Odt PO 4 mg Q4H PRN Administration NAUSEA OR VOMITING Pantoprazole Sodium 40 mg 12/24/17 17:00 12/24/17 16:47 Protonix Inj IV.PUSH 40 mg Q24H MARQUEZ Administration Pharmacy Profile Note 1 each 12/24/17 17:02 Vancomycin Consult Pharmacy OTHER UNSCH PRN Pharmacy to dose Potassium Bicarb/Potassium Chloride 50 meq 12/25/17 08:32 K-Lyte Cl Eff PO UNSCH PRN For Potassium 3.3 - 3.5 mEq/L Potassium Phosphate 2,000 mg 12/25/17 08:32 K-Phos Original PO Q4H PRN Phosphorus Less Than 2.5 mg/dL Potassium Phosphate 2,000 mg 12/25/17 08:32 K-Phos Original PO UNSCH PRN SEE LABEL COMMENTS Pramipexole Dihydrochloride 0.25 mg 12/23/17 18:00 12/24/17 17:56 Mirapex PO Not Given QPM MARQUEZ Sennosides 17.2 mg 12/23/17 11:41 Senokot PO Q12H PRN Moderate Constipation Sodium Chloride 2 ml 12/23/17 05:54 Ns Flush IV.FLUSH UNSCH PRN FLUSH AFTER USING IV ACCESS Tamsulosin HCl 0.4 mg 12/23/17 17:00 12/25/17 10:41 Flomax PO Not Given DAILY MARQUEZ Objective Remarks: Abd:soft,nt,nd Hawley with clear urine Assessment and Plan - Plan 72 y.o female with encephalopathy with findings on initial CT scan with stones and ? bladder stone. No stones seen on repeat CT scan which indicates that this was residual contrast from the prior CTA performed at the other hospital. No bladder stone noted. Would not recommend any intervention for the RLP mass at this time given the pt's current condition. Once stable, f/u at outpt.
--- NOTE | 2017-12-25 15:01 | XR ---
EXAM DATE: 12/25/2017 2:57 PM EDT AGE/SEX: 72 years / Female INDICATIONS: Shortness of breath. CLINICAL DATA: This is the patient's initial encounter. Patient reports that signs and symptoms have been present for 1 day and indicates a pain score of Nonresponsive. MEDICAL/SURGICAL HISTORY: Chronic obstructive pulmonary disease. Congestive heart failure. Hy pertension. Asthma. Diabetes. None. COMPARISON: [facility] [place] 1[place] SINGLE AP, 12/24/2017. . FINDINGS: A single portable frontal view the chest is blurred by motion artifact. Endotracheal tube tip is 2 cm from the shannan. Nasogastric tube tip courses off the inferior margin of the film. Heart is enlarged . Scattered areas of consolidation seen involving both lungs most pronounced within the right base. N o discernible effusions. Appearance is unchanged. CONCLUSION: Unchanged exam. Radiographic pattern suggesting pulmonary edema. Electronically signed by: Laron Knowles MD 12/25/2017 3:00 PM EDT
[2017-12-25] MEDS: Sodium Chloride 0.45 % Inj 1,000 ML IV.CONT SCH (16:54)
[2017-12-25] MEDS: Pantoprazole Inj 40 MG Vial IV.PUSH SCH (16:56)
[2017-12-25] MEDS: Sod Chloride 0.9% Inj 1,000 ML IV.CONT SCH (16:56)
[2017-12-25] MEDS: Montelukast 10 MG Tablet PO SCH (20:26)
[2017-12-26] MEDS: Propofol 1000 mg/100 ml Inj 1,000 MG/100 ML BOTTLE IV.CONT PRN ×7 (02:06→22:50)
[2017-12-26] MEDS: Sodium Chloride 0.45 % Inj 1,000 ML IV.CONT SCH ×2 (05:46→22:51)
[2017-12-26] MEDS: MethylPREDNISolone Sod Succinate Inj 40 MG/ML Vial IV.PUSH SCH ×4 (05:47→21:37)
[2017-12-26] MEDS: Sod Chloride 0.9% Inj 1,000 ML IV.CONT SCH (05:49)
[2017-12-26] MEDS: Piperacil/Tazo 2.25 GM Premix 50 ML IV.SIG SCH ×4 (05:49→20:04)
[2017-12-26] MEDS: Oral Hygiene Kit OROPHARYNG SCH ×3 (05:50→17:11)
--- NOTE | 2017-12-26 05:52 | XR ---
EXAM DATE: 12/26/2017 4:03 AM EDT AGE/SEX: 72 years / Female INDICATIONS: Shortness of breath, possible pulmonary disease. CLINICAL DATA: This is the patient's subsequent encounter. Patient reports that signs and symptoms h ave been present for 2 days and indicates a pain score of Nonresponsive. MEDICAL/SURGICAL HISTORY: Chronic obstructive pulmonary disease. Congestive heart failure. Hy pertension. Asthma. Diabetes. None. [place] [facility] [place]. . FINDINGS: Endotracheal tube and nasogastric tube are stable in good position. Hazy mild asymmetrically right-si ded pleural-parenchymal opacity persists. Cardiac contours are unchanged. CONCLUSION: No significant change Electronically signed by: John Paul Thurston MD 12/26/2017 5:50 AM EDT
[2017-12-26 06:11] LABS: Hematocrit 40.7 % (35.0-46.0); Hemoglobin 13.2 gm/dL (11.6-15.3); Mean Corpuscular HGB Conc 32.4 % (32.0-36.0); Mean Corpuscular Hemoglobin 29.3 pg (27.0-34.0); Mean Corpuscular Volume 90.4 fL (80.0-100.0); Mean Platelet Volume 10.2 fL (7.0-11.0); Platelet Count 157 th/mm3 (150-450); Red Cell Distribution Width 15.2 % (11.6-17.2); White Blood Count 9.4 th/mm3 (4.0-11.0)
[2017-12-26] MEDS ORDERED: Pharmacy Ordered Lab Info OTHER ONE (07:45)
[2017-12-26] MEDS: Chlorhexidine 0.12% Oral Kit 15 ML UDC OROPHARYNG SCH ×2 (09:08→20:04)
[2017-12-26] MEDS: amLODIPine 10 MG Tablet PO SCH (09:09)
[2017-12-26] MEDS: Enoxaparin Inj 40 MG/0.4 ML Syringe SQ SCH (09:09)
[2017-12-26 10:11] LABS: Albumin 2.9 g/dL (3.4-5.0); Anion Gap 12 meq/L (5-15); Aspartate Aminotransferase 20 U/L (15-37); Blood Urea Nitrogen 22 mg/dL (7-18); Calcium 8.7 mg/dL (8.5-10.1); Chloride 103 meq/L (98-107); Glomerular Filtration Rate 45 mL/min (>89); Glucose,Random 129 mg/dL (74-106); Potassium 3.5 meq/L (3.5-5.1)
--- NOTE | 2017-12-26 10:12 | P.PNFP ---
Subjective Interval history: Ms Prasad was seen on rounds this morning. She appears agitated, pulling at her restraints. Moaning intermittently. Per discussion with her nurse, this is how she has been overnight while on light sedation. Nursing reports that vital signs have been within normal limits and she does not appear to be in any pain. Unable to obtain review of systems due to patient's intubated status. Patient does not open her eyes to voice, but does turn her head and localizes sound. Spontaneous movement of upper and lower extremities <Madiha Pruett - 12/26/17 10:12> Results - Labs Result diagrams: 12/26/17 04:09 12/26/17 09:23 <Danielito Cast - 12/26/17 16:20> Abnormal lab results 12/25/17 12/25/17 12/26/17 Range/Units 17:19 20:13 09:16 ABG pH (7.380-7.420) ABG pCO2 (38-42) mmHg BUN (7-18) mg/dL Creatinine (0.50-1.00) mg/dL Estimated GFR (>89) mL/min POC Glucose 133 H 136 H 137 H (68-110) mg/dl Random Glucose (74-106) mg/dL Albumin (3.4-5.0) g/dL Vancomycin Trough (5.0-10.0) mcg/mL 12/26/17 12/26/17 12/26/17 Range/Units 09:23 12:39 13:55 ABG pH 7.50 H (7.380-7.420) ABG pCO2 29 L (38-42) mmHg BUN 22 H (7-18) mg/dL Creatinine 1.38 H (0.50-1.00) mg/dL Estimated GFR 45 L (>89) mL/min POC Glucose 166 H (68-110) mg/dl Random Glucose 129 H (74-106) mg/dL Albumin 2.9 L (3.4-5.0) g/dL Vancomycin Trough 13.9 H (5.0-10.0) mcg/mL Short CBC 12/26/17 Range/Units 04:09 WBC 9.4 (4.0-11.0) th/mm3 Hgb 13.2 (11.6-15.3) gm/dL Hct 40.7 (35.0-46.0) % Plt Count 157 (150-450) th/mm3 BMP 12/26/17 09:23 Sodium 142 Potassium 3.5 Chloride 103 Carbon Dioxide 27.0 BUN 22 H Creatinine 1.38 H Calcium 8.7 Liver Function 12/26/17 Range/Units 09:23 Total Bilirubin 0.5 (0.2-1.0) mg/dL AST 20 (15-37) U/L ALT 29 (10-53) U/L Alkaline Phosphatase 94 (45-117) U/L Albumin 2.9 L (3.4-5.0) g/dL <Danielito Cast - 12/26/17 16:20> Abnormal lab results 12/25/17 12/25/17 12/25/17 Range/Units 08:40 17:19 20:13 POC Glucose 119 H 133 H 136 H (68-110) mg/dl 12/26/17 Range/Units 09:16 POC Glucose 137 H (68-110) mg/dl Short CBC 12/26/17 Range/Units 04:09 WBC 9.4 (4.0-11.0) th/mm3 Hgb 13.2 (11.6-15.3) gm/dL Hct 40.7 (35.0-46.0) % Plt Count 157 (150-450) th/mm3 <Madiha Pruett - 12/26/17 10:12> - Imaging Impressions Chest X-Ray 12/26/17 06:00 CONCLUSION: No significant change <Danielito Cast - 12/26/17 16:20> Impressions Chest X-Ray 12/25/17 00:00 CONCLUSION: Unchanged exam. Radiographic pattern suggesting pulmonary edema. Chest X-Ray 12/26/17 06:00 CONCLUSION: No significant change <Madiha Pruett - 12/26/17 10:12> Physical Exam Vital signs: Vital Signs 12/25/17 16:30 12/25/17 16:46 12/25/17 17:00 Temperature Pulse Rate 97 H 106 H 100 H Respiratory Rate 18 19 18 Blood Pressure 110/73 133/63 112/58 L Pulse Oximetry 94 L 90 L 96 12/25/17 17:16 12/25/17 20:00 12/25/17 20:32 Temperature 98.8 F Pulse Rate 101 H 96 H 96 H Respiratory Rate 31 H 18 18 Blood Pressure 109/68 112/71 Pulse Oximetry 96 91 L 95 12/25/17 23:45 12/25/17 23:48 12/26/17 00:00 Temperature 98.7 F Pulse Rate 108 H 107 H 114 H Respiratory Rate 21 18 32 H Blood Pressure 125/75 124/87 Pulse Oximetry 94 L 97 94 L 12/26/17 00:15 12/26/17 00:30 12/26/17 00:45 Temperature Pulse Rate 106 H 102 H 101 H Respiratory Rate 35 H 36 H 36 H Blood Pressure 124/86 120/83 117/81 Pulse Oximetry 94 L 94 L 93 L 12/26/17 01:00 12/26/17 01:15 12/26/17 01:30 Temperature Pulse Rate 100 H 100 H 97 H Respiratory Rate 35 H 32 H 21 Blood Pressure 120/81 118/77 121/77 Pulse Oximetry 93 L 93 L 93 L 12/26/17 01:45 12/26/17 02:00 12/26/17 02:15 Temperature Pulse Rate 96 H 96 H 97 H Respiratory Rate 24 18 24 Blood Pressure 131/78 136/81 134/80 Pulse Oximetry 95 96 95 12/26/17 02:30 12/26/17 02:45 12/26/17 02:47 Temperature Pulse Rate 95 H 94 H 93 H Respiratory Rate 21 21 18 Blood Pressure 139/87 138/90 Pulse Oximetry 97 96 12/26/17 03:20 12/26/17 03:21 12/26/17 03:30 Temperature Pulse Rate 107 H 105 H 101 H Respiratory Rate 2 L 0 L 13 Blood Pressure 141/94 H 141/90 H 143/92 H Pulse Oximetry 92 L 95 96 12/26/17 03:45 12/26/17 03:57 12/26/17 04:00 Temperature 98.9 F Pulse Rate 99 H 100 H Respiratory Rate 14 18 18 Blood Pressure 137/96 H 127/88 Pulse Oximetry 96 96 96 12/26/17 04:15 12/26/17 04:30 12/26/17 04:45 Temperature Pulse Rate 100 H 99 H 97 H Respiratory Rate 18 18 18 Blood Pressure 120/81 118/83 113/87 Pulse Oximetry 94 L 94 L 94 L 12/26/17 05:00 12/26/17 05:15 12/26/17 05:30 Temperature Pulse Rate 96 H 93 H 93 H Respiratory Rate 18 18 18 Blood Pressure 120/76 119/85 123/85 Pulse Oximetry 92 L 93 L 94 L 12/26/17 05:45 12/26/17 07:31 12/26/17 07:32 Temperature Pulse Rate 91 H 87 Respiratory Rate 18 18 18 Blood Pressure 123/85 Pulse Oximetry 95 96 12/26/17 08:00 12/26/17 10:58 12/26/17 12:00 Temperature 97.8 F 98 F Pulse Rate 99 H 102 H 106 H Respiratory Rate 18 18 Blood Pressure 157/88 H 151/90 H Pulse Oximetry 92 L 93 L 94 L 12/26/17 15:44 Temperature Pulse Rate 90 Respiratory Rate 18 Blood Pressure Pulse Oximetry 94 L Intake & Output 12/25/17 12/26/17 12/26/17 18:59 06:59 18:59 Intake Total 1250 / 1250 1712.5 / 1712.5 250 / 250 Output Total 230 / 2300 1999 Balance -1050 / -1050 -287.5 / -287.5 250 / 250 Weight 113.7 kg Intake: IV 1250 / 1250 1712.5 / 1712.5 250 / 250 Diprivan 1000 mg/100 ml Inj 1, 200 / 200 300 / 300 200 / 200 000 mg In 100 ml @ 5 MCG/KG/MIN 3.513 mls/hr IV.CONT TITRATE PRN Rx#:[id number] 1/2 Normal Saline Inj 1,000 ML 1000 / 1000 1000 / 1000 @ 42 mls/hr IV.CONT .[id number] [facility] Rx#:[id number] Zosyn 2.25 GM Premix 50 ML @ 50 / 50 150 / 150 50 / 50 100 mls/hr IV.SIG Q6H [facility] Rx#: [id number] Potassium Phosphate Inj 30 MMOL 0 / 0 In NS Inj 250 ML @ 42 mls/hr IV.SIG UNSCH PRN Rx#:[id number] Vancomycin Inj 1,250 MG In NS 262.5 / 262.5 Inj 250 ML @ 250 mls/hr IV.SIG Q12H [facility] Rx#:[id number] Output: Urine 1999 Urine Amount (Catheter) 2299 / 2299 Indwelling Urethral Catheter 2300 / 2300 Other: Date of Last Bowel Movement 12/26/17 # Bowel Movements 1 <Danielito Cast L - 12/26/17 16:20> Vital Signs 12/25/17 10:00 12/25/17 10:05 12/25/17 10:15 Temperature Pulse Rate 94 H 95 H 94 H Respiratory Rate 18 18 18 Blood Pressure 199/97 H 114/56 L 104/55 L Pulse Oximetry 94 L 75 L 98 12/25/17 10:30 12/25/17 10:45 12/25/17 11:00 Temperature Pulse Rate 96 H 93 H 96 H Respiratory Rate 18 18 18 Blood Pressure 112/73 101/65 112/77 Pulse Oximetry 97 99 97 12/25/17 11:15 12/25/17 11:30 12/25/17 11:45 Temperature Pulse Rate 94 H 94 H 96 H Respiratory Rate 18 18 18 Blood Pressure 122/79 123/78 121/75 Pulse Oximetry 96 95 95 12/25/17 12:00 12/25/17 12:15 12/25/17 12:30 Temperature 98.5 F Pulse Rate 97 H 96 H 97 H Respiratory Rate 18 18 18 Blood Pressure 120/73 122/73 125/77 Pulse Oximetry 94 L 93 L 93 L 12/25/17 12:45 12/25/17 13:00 12/25/17 13:15 Temperature Pulse Rate 96 H 95 H 95 H Respiratory Rate 18 18 18 Blood Pressure 130/81 131/88 125/81 Pulse Oximetry 94 L 93 L 94 L 12/25/17 13:30 12/25/17 13:45 12/25/17 14:00 Temperature Pulse Rate 101 H 100 H 100 H Respiratory Rate 18 18 18 Blood Pressure 123/75 125/73 125/72 Pulse Oximetry 94 L 95 95 12/25/17 14:15 12/25/17 14:30 12/25/17 14:45 Temperature Pulse Rate 97 H 100 H 100 H Respiratory Rate 18 18 20 Blood Pressure 120/68 113/69 109/67 Pulse Oximetry 95 96 95 12/25/17 14:50 12/25/17 15:00 12/25/17 15:16 Temperature Pulse Rate 100 H 100 H 100 H Respiratory Rate 18 18 18 Blood Pressure 115/84 104/83 Pulse Oximetry 95 96 93 L 12/25/17 15:31 12/25/17 15:45 12/25/17 16:00 Temperature Pulse Rate 100 H 99 H 97 H Respiratory Rate 18 18 18 Blood Pressure 122/75 124/80 Pulse Oximetry 91 L 97 96 12/25/17 16:01 12/25/17 16:15 12/25/17 16:30 Temperature 99.5 F Pulse Rate 97 H 97 H 97 H Respiratory Rate 18 18 18 Blood Pressure 112/76 108/73 110/73 Pulse Oximetry 97 95 94 L 12/25/17 16:46 12/25/17 17:00 12/25/17 17:16 Temperature Pulse Rate 106 H 100 H 101 H Respiratory Rate 19 18 31 H Blood Pressure 133/63 112/58 L 109/68 Pulse Oximetry 90 L 96 96 12/25/17 20:00 12/25/17 20:32 12/25/17 23:45 Temperature 98.8 F Pulse Rate 96 H 96 H 108 H Respiratory Rate 18 18 21 Blood Pressure 112/71 125/75 Pulse Oximetry 91 L 95 94 L 12/25/17 23:48 12/26/17 00:00 12/26/17 00:15 Temperature 98.7 F Pulse Rate 107 H 114 H 106 H Respiratory Rate 18 32 H 35 H Blood Pressure 124/87 124/86 Pulse Oximetry 97 94 L 94 L 12/26/17 00:30 12/26/17 00:45 12/26/17 01:00 Temperature Pulse Rate 102 H 101 H 100 H Respiratory Rate 36 H 36 H 35 H Blood Pressure 120/83 117/81 120/81 Pulse Oximetry 94 L 93 L 93 L 12/26/17 01:15 12/26/17 01:30 12/26/17 01:45 Temperature Pulse Rate 100 H 97 H 96 H Respiratory Rate 32 H 21 24 Blood Pressure 118/77 121/77 131/78 Pulse Oximetry 93 L 93 L 95 12/26/17 02:00 12/26/17 02:15 12/26/17 02:30 Temperature Pulse Rate 96 H 97 H 95 H Respiratory Rate 18 24 21 Blood Pressure 136/81 134/80 139/87 Pulse Oximetry 96 95 97 12/26/17 02:45 12/26/17 02:47 12/26/17 03:20 Temperature Pulse Rate 94 H 93 H 107 H Respiratory Rate 21 18 2 L Blood Pressure 138/90 141/94 H Pulse Oximetry 96 92 L 12/26/17 03:21 12/26/17 03:30 12/26/17 03:45 Temperature Pulse Rate 105 H 101 H 99 H Respiratory Rate 0 L 13 14 Blood Pressure 141/90 H 143/92 H 137/96 H Pulse Oximetry 95 96 96 12/26/17 03:57 12/26/17 04:00 12/26/17 04:15 Temperature 98.9 F Pulse Rate 100 H 100 H Respiratory Rate 18 18 18 Blood Pressure 127/88 120/81 Pulse Oximetry 96 96 94 L 12/26/17 04:30 12/26/17 04:45 12/26/17 05:00 Temperature Pulse Rate 99 H 97 H 96 H Respiratory Rate 18 18 18 Blood Pressure 118/83 113/87 120/76 Pulse Oximetry 94 L 94 L 92 L 12/26/17 05:15 12/26/17 05:30 12/26/17 05:45 Temperature Pulse Rate 93 H 93 H 91 H Respiratory Rate 18 18 18 Blood Pressure 119/85 123/85 123/85 Pulse Oximetry 93 L 94 L 95 12/26/17 07:31 12/26/17 07:32 Temperature Pulse Rate 87 Respiratory Rate 18 18 Blood Pressure Pulse Oximetry 96 Intake & Output 12/25/17 12/26/17 12/26/17 18:59 06:59 18:59 Intake Total 1250 / 1250 1662.5 / 1662.5 Output Total 2300 / 2300 1999 / 1999 Balance -1050 / -1050 -337.5 / -337.5 Weight 113.7 kg Intake: IV 1250 / 1250 1662.5 / 1662.5 Diprivan 1000 mg/100 ml Inj 1, 200 / 200 300 / 300 000 mg In 100 ml @ 5 MCG/KG/MIN 3.513 mls/hr IV.CONT TITRATE PRN Rx#:[id number] 1/2 Normal Saline Inj 1,000 ML 1000 / 1000 1000 / 1000 @ 42 mls/hr IV.CONT .[id number] [facility] Rx#:[id number] Zosyn 2.25 GM Premix 50 ML @ 50 / 50 100 / 100 100 mls/hr IV.SIG Q6H [facility] Rx#: [id number] Potassium Phosphate Inj 30 MMOL 0 / 0 In NS Inj 250 ML @ 42 mls/hr IV.SIG UNSCH PRN Rx#:[id number] Vancomycin Inj 1,250 MG In NS 262.5 / 262.5 Inj 250 ML @ 250 mls/hr IV.SIG Q12H [facility] Rx#:[id number] Output: Urine 1999 / 1999 Urine Amount (Catheter) 2300 / 2300 Indwelling Urethral Catheter 0 / 2300 Other: # Bowel Movements 1 <SebleMadiha Rodriguez - 12/26/17 10:12> Narrative: GENERAL: Obese female lying in bed intubated, light sedation, agitated, pulling at restraints, thrashing head. EYES: Pupils equal and round and reactive. CARDIOVASCULAR: Regular rate and rhythm. No murmur appreciated RESPIRATORY: No accessory muscle use. Breath sounds difficult to appreciate due to mechanical ventilation sounds. PRVC/AC, FiO2 45%, PEEP 5, 18 bpm GASTROINTESTINAL: Abdomen soft, obese. Large ventral hernia present. Bowel sounds present MUSCULOSKELETAL: Extremities without clubbing, cyanosis. Pedal edema bilaterally, nonpitting NEUROLOGICAL: Intubated and sedated as above. <Madiha Pruett - 12/26/17 10:12> - Urinary Catheter Management Indwelling Urethral Catheter Cath placed during this visit: no <Danielito Cast L - 12/26/17 16:20> no <Madiha Pruett - 12/26/17 10:12> Assessment and Plan - Assessment (1) Right flank pain Code(s): R10.9 - Unspecified abdominal pain Status: Acute (2) CHF (congestive heart failure) Code(s): I50.9 - Heart failure, unspecified Status: Acute (3) Pneumonia Code(s): J18.9 - Pneumonia, unspecified organism Status: Acute (4) BRANDON (acute kidney injury) Code(s): N17.9 - Acute kidney failure, unspecified Status: Acute (5) Elevated troponin Code(s): R74.8 - Abnormal levels of other serum enzymes Status: Acute (6) Diabetes type 2, controlled Code(s): E11.9 - Type 2 diabetes mellitus without complications Status: Acute (7) COPD (chronic obstructive pulmonary disease) Code(s): J44.9 - Chronic obstructive pulmonary disease, unspecified Status: Acute (8) Hyperlipidemia Code(s): E78.5 - Hyperlipidemia, unspecified Status: Acute (9) Hypertension Code(s): I10 - Essential (primary) hypertension Status: Acute (10) Depression Code(s): F32.9 - Major depressive disorder, single episode, unspecified Status : Acute (11) Nutrition, metabolism, and development symptoms Code(s): R63.8 - Other symptoms and signs concerning food and fluid intake Status: Acute <Danielito Cast - 12/26/17 16:20> (1) Right flank pain Code(s): R10.9 - Unspecified abdominal pain Status: Acute Plan: -Continue Flomax 0.4mg PO daily -Patient appears to have passed kidney stones between CT on 12/[address] on 12/25 -Urology consult - Does not recommend any intervention at this time and will follow-up as outpatient. -Will consult Heme/onc as outpt -Continue home pain medication due to patient's current respiratory status History: -Urinalysis did not show any evidence of infection or blood -Ultrasound of gallbladder shows large stone, no evidence of biliary obstruction -CT abdomen and pelvis 12/23 notable for multiple calcifications in each kidney as described above. Unsure if any of the stones are the etiology of her pain -CT abdomen and pelvis 12/25 showing absence of renal stones, large ventral hernia with normal-appearing small and large bowel, and 3.4x3.9cm renal mass (2) CHF (congestive heart failure) Code(s): I50.9 - Heart failure, unspecified Status: Acute Plan: Patient has maintained white blood cell count within normal limits. Has remained afebrile. Due to worsening respiratory status though consideration for pneumonia. Urine output 4.3 L yesterday -Patient's weight down slightly less than 7 kg from admission -Broad-spectrum antibiotics vancomycin, Zosyn, doxycycline -Bumex on hold due to patient's current respiratory status -Pulmicort nebulizer every 12 hours -Duonebs 2.5 mg q4h scheduled -Albuterol neb q2h PRN -Continue daily weights -Limit p.o. intake to 1.5 L daily History: -Echo with reduced LV systolic function and EF 40-45%, normal LV size, wall thickness upper limit normal, no wall abnormalities; RV not well visualized; normal left and right atria. -CXR 12/24 showing cardiomegaly with pulmonary vascular engorgement and bilateral pulmonary infiltrates with pulm edema suspected -BNP 236 -> 362 -Acetazolamide 250 mg IV once 12/24 5PM (3) Pneumonia Code(s): J18.9 - Pneumonia, unspecified organism Status: Acute Plan: Pt with increasing bilateral lung opacities on imaging and transferred to [facility] for worsening respiratory failure -Started on IV Vanc 2g q12h, Zosyn 2.25 mg IV q6h, NG doxycycline 100 mg every 12 -Methylprednisolone 40 mg q6h -Singulair, Pulmicort, duonebs, albuterol nebs as above and below -Blood cx, sputum, influenza A/B ordered -No growth to date on blood culture 1 day (4) BRANDON (acute kidney injury) Code(s): N17.9 - Acute kidney failure, unspecified Status: Acute Plan: -Creatinine mildly elevated at 1.12 on admission. Unknown baseline. -Holding Bumex IV for diuresis as above -Gentle IV fluids half-normal saline at 42 mls/hr due to pt intubated on vent and due to patient's congestive heart failure -Repeat BMP in a.m. (5) Elevated troponin Code(s): R74.8 - Abnormal levels of other serum enzymes Status: Acute Plan: -Troponin 0.05 initially elevated to 0.10 and 0.15 with no chest pain, likely demand ischemia in the setting of mild BRANDON -EKG shows sinus rhythm with occasional PVCs, LVH, and mild ST changes -Continue continuous telemetry (6) Diabetes type 2, controlled Code(s): E11.9 - Type 2 diabetes mellitus without complications Status: Acute Plan: -Medium level sliding scale insulin * 0 units in the past 24 hrs -NPO due to intubation and sedation (7) COPD (chronic obstructive pulmonary disease) Code(s): J44.9 - Chronic obstructive pulmonary disease, unspecified Status: Acute Plan: -On 2 L of oxygen at home at baseline -Continue home Singulair 10 mg qhs -Pulmicort 0.5 neb q12h -Holding prednisone -Continuous oxygen as per [facility] protocol on vent -Breathing treatments as above (8) Hyperlipidemia Code(s): E78.5 - Hyperlipidemia, unspecified Status: Acute Plan: -Continue home atorvastatin (9) Hypertension Code(s): I10 - Essential (primary) hypertension Status: Acute Plan: -Mostly well-controlled -Continue home amlodipine 10 mg PO daily (10) Depression Code(s): F32.9 - Major depressive disorder, single episode, unspecified Status : Acute Plan: -Continue home Wellbutrin 150mg PO BID (11) Nutrition, metabolism, and development symptoms Code(s): R63.8 - Other symptoms and signs concerning food and fluid intake Status: Acute Plan: Fluids: 1/2 NS at 42 mls/hr as per ICU protocol Dietary: NPO due to intubation Electrolytes: Monitor daily and replete as needed; on ICU electrolyte protocol. DVT prophylaxis: SCDs and Lovenox <Madiha Pruett - 12/26/17 09:54> - Assessment and Plan Discussed Condition With: Dr Cast <Madiha Pruett - 12/26/17 10:12> - Attending Attestation The exam, history, and the medical decision-making described in the above note were completed with the assistance of the resident physician. I reviewed and agree with the findings presented. I attest that I had a [id number] encounter with the patient on the same day, and personally performed and documented my assessment and findings in the medical record. Discussed and evaluated patient with resident physician this morning. Patient with history of CHF and COPD presented with right flank pain and had acute status change on day two of admission, with severe hypercapnic hypoxemic respiratory failure. She is currently intubated and mechanically ventilated, in the intensive care unit. This morning FIO2 is 45 and PEEP is 5, with plan for daily SBT's. If unsuccessful, plan is for tube feedings to address nutritional needs with assistance of medical claims specialist. This morning, she is somewhat agitated on light sedation. She is being treated empirically for pneumonia. Sputum cultures and blood cultures pending. White count remains stable, afebrile. Will continue to update family regarding clinical status and progress. 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 <Danielito Cast - Last Filed: 12/26/17 16:20> (6) Diabetes type 2, controlled Qualifiers: Diabetes mellitus custodial insulin use: without custodial use Diabetes mellitus complication status: without complication Qualified Code(s): E11.9 - Type 2 diabetes mellitus without complications <Madiha Pruett - Last Filed: 12/26/17 09:54> (6) Diabetes type 2, controlled Qualifiers: Diabetes mellitus custodial insulin use: without dedicated intermodal truck driver use Diabetes mellitus complication status: without complication Qualified Code(s): E11.9 - Type 2 diabetes mellitus without complications <Danielito Cast - Last Filed: 12/26/17 16:20> (6) Diabetes type 2, controlled Qualifiers: 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
[2017-12-26 10:14] LABS: Alanine Aminotransferase 29 U/L (10-53); Alkaline Phosphatase 94 U/L (45-117); Total Protein 7.6 g/dL (6.4-8.2); Vancomycin,Trough 13.9 mcg/mL (5.0-10.0)
[2017-12-26] MEDS: Insulin NovoLOG Aspart Correctional Sugar Inj SQ SCH ×4 (10:30→20:27)
--- NOTE | 2017-12-26 10:30 | P.PNCC ---
Subjective Subjective Remarks/Hospital Course: This is a 72-year-old AA female. Date of admission 12/23/2017. Date of consultation 12/24/2017. Past medical history includes likely chronic systolic heart failure, essential hypertension, hyperlipidemia, diabetes mellitus, elevated BMI, depression, cataracts and COPD. Patient was originally seen at [facility] on 12/22 with chest pain/abdominal pain. At that facility, reportedly had a CT pulmonary revealed no pulmonary embolus and. She was sent home on hydrocodone/acetaminophen. This made her drowsy. She presented to [facility] on 12/23. Essentially, patient received a CT of the abdomen pelvis which revealed a gallstone, bilateral nonobstructing nephrolithiasis colonic diverticulosis and ventral hernia along with a cyst in the right kidney. Patient was receiving hydromorphone for pain management. Patient rapid response team today due to altered mental status. ABG revealed significant CO2 retention. Attempted BiPAP for approximately an hour with minimal improvement of mentation and CO2. Decision was made to emergently intubate. Chest x-ray revealed a right lower lobe infiltrate. Will be started on empiric antibiotics. Stat laboratories including likely, troponin pending. Nuclear medicine hepatobiliary scan pending. Repeat CT abdomen/pelvis pending 12/25: Remains intubated sedated critically ill encephalopathy. CT of the chest shows bibasilar consolidation, also large 3.4 and a 3.9 cm right kidney mass suspicious for renal cell carcinoma. A urology consult is pending at this time. On empiric antibiotics for pneumonia sputum and blood cultures are pending at this time. Patient gets agitated on sedation lightening Subjective: 12/26: Afebrile. Remains on propofol drip at 30 mcg/kg/min. Will attempt spontaneous breathing trials today. If not tube feeds will be initiated see orders. A.m. laboratories pending Objective Vital Signs / I&O: Vital Signs 12/25/17 10:30 12/25/17 10:45 12/25/17 11:00 Temperature Pulse Rate 96 H 93 H 96 H Respiratory Rate 18 18 18 Blood Pressure 112/73 101/65 112/77 Pulse Oximetry 97 99 97 12/25/17 11:15 12/25/17 11:30 12/25/17 11:45 Temperature Pulse Rate 94 H 94 H 96 H Respiratory Rate 18 18 18 Blood Pressure 122/79 123/78 121/75 Pulse Oximetry 96 95 95 12/25/17 12:00 12/25/17 12:15 12/25/17 12:30 Temperature 98.5 F Pulse Rate 97 H 96 H 97 H Respiratory Rate 18 18 18 Blood Pressure 120/73 122/73 125/77 Pulse Oximetry 94 L 93 L 93 L 12/25/17 12:45 12/25/17 13:00 12/25/17 13:15 Temperature Pulse Rate 96 H 95 H 95 H Respiratory Rate 18 18 18 Blood Pressure 130/81 131/88 125/81 Pulse Oximetry 94 L 93 L 94 L 12/25/17 13:30 12/25/17 13:45 12/25/17 14:00 Temperature Pulse Rate 101 H 100 H 100 H Respiratory Rate 18 18 18 Blood Pressure 123/75 125/73 125/72 Pulse Oximetry 94 L 95 95 12/25/17 14:15 12/25/17 14:30 12/25/17 14:45 Temperature Pulse Rate 97 H 100 H 100 H Respiratory Rate 18 18 20 Blood Pressure 120/68 113/69 109/67 Pulse Oximetry 95 96 95 12/25/17 14:50 12/25/17 15:00 12/25/17 15:16 Temperature Pulse Rate 100 H 100 H 100 H Respiratory Rate 18 18 18 Blood Pressure 115/84 104/83 Pulse Oximetry 95 96 93 L 12/25/17 15:31 12/25/17 15:45 12/25/17 16:00 Temperature Pulse Rate 100 H 99 H 97 H Respiratory Rate 18 18 18 Blood Pressure 122/75 124/80 Pulse Oximetry 91 L 97 96 12/25/17 16:01 12/25/17 16:15 12/25/17 16:30 Temperature 99.5 F Pulse Rate 97 H 97 H 97 H Respiratory Rate 18 18 18 Blood Pressure 112/76 108/73 110/73 Pulse Oximetry 97 95 94 L 12/25/17 16:46 12/25/17 17:00 12/25/17 17:16 Temperature Pulse Rate 106 H 100 H 101 H Respiratory Rate 19 18 31 H Blood Pressure 133/63 112/58 L 109/68 Pulse Oximetry 90 L 96 96 12/25/17 20:00 12/25/17 20:32 12/25/17 23:45 Temperature 98.8 F Pulse Rate 96 H 96 H 108 H Respiratory Rate 18 18 21 Blood Pressure 112/71 125/75 Pulse Oximetry 91 L 95 94 L 12/25/17 23:48 12/26/17 00:00 12/26/17 00:15 Temperature 98.7 F Pulse Rate 107 H 114 H 106 H Respiratory Rate 18 32 H 35 H Blood Pressure 124/87 124/86 Pulse Oximetry 97 94 L 94 L 12/26/17 00:30 12/26/17 00:45 12/26/17 01:00 Temperature Pulse Rate 102 H 101 H 100 H Respiratory Rate 36 H 36 H 35 H Blood Pressure 120/83 117/81 120/81 Pulse Oximetry 94 L 93 L 93 L 12/26/17 01:15 12/26/17 01:30 12/26/17 01:45 Temperature Pulse Rate 100 H 97 H 96 H Respiratory Rate 32 H 21 24 Blood Pressure 118/77 121/77 131/78 Pulse Oximetry 93 L 93 L 95 12/26/17 02:00 12/26/17 02:15 12/26/17 02:30 Temperature Pulse Rate 96 H 97 H 95 H Respiratory Rate 18 24 21 Blood Pressure 136/81 134/80 139/87 Pulse Oximetry 96 95 97 12/26/17 02:45 12/26/17 02:47 12/26/17 03:20 Temperature Pulse Rate 94 H 93 H 107 H Respiratory Rate 21 18 2 L Blood Pressure 138/90 141/94 H Pulse Oximetry 96 92 L 12/26/17 03:21 12/26/17 03:30 12/26/17 03:45 Temperature Pulse Rate 105 H 101 H 99 H Respiratory Rate 0 L 13 14 Blood Pressure 141/90 H 143/92 H 137/96 H Pulse Oximetry 95 96 96 12/26/17 03:57 12/26/17 04:00 12/26/17 04:15 Temperature 98.9 F Pulse Rate 100 H 100 H Respiratory Rate 18 18 18 Blood Pressure 127/88 120/81 Pulse Oximetry 96 96 94 L 12/26/17 04:30 12/26/17 04:45 12/26/17 05:00 Temperature Pulse Rate 99 H 97 H 96 H Respiratory Rate 18 18 18 Blood Pressure 118/83 113/87 120/76 Pulse Oximetry 94 L 94 L 92 L 12/26/17 05:15 12/26/17 05:30 12/26/17 05:45 Temperature Pulse Rate 93 H 93 H 91 H Respiratory Rate 18 18 18 Blood Pressure 119/85 123/85 123/85 Pulse Oximetry 93 L 94 L 95 12/26/17 07:31 12/26/17 07:32 Temperature Pulse Rate 87 Respiratory Rate 18 18 Blood Pressure Pulse Oximetry 96 Intake & Output 12/25/17 12/26/17 12/26/17 18:59 06:59 18:59 Intake Total 1250 / 1250 1662.5 / 1662.5 Output Total 2300 / 2300 1999 / 1999 Balance -1050 / -1050 -337.5 / -337.5 Weight 113.7 kg Intake: IV 1250 / 1250 1662.5 / 1662.5 Diprivan 1000 mg/100 ml Inj 1, 200 / 200 300 / 300 000 mg In 100 ml @ 5 MCG/KG/MIN 3.513 mls/hr IV.CONT TITRATE PRN Rx#:[id number] 1/2 Normal Saline Inj 1,000 ML 1000 / 1000 1000 / 1000 @ 42 mls/hr IV.CONT .[id number] [facility] Rx#:[id number] Zosyn 2.25 GM Premix 50 ML @ 50 / 50 100 / 100 100 mls/hr IV.SIG Q6H [facility] Rx#: [id number] Potassium Phosphate Inj 30 MMOL 0 / 0 In NS Inj 250 ML @ 42 mls/hr IV.SIG UNSCH PRN Rx#:[id number] Vancomycin Inj 1,250 MG In NS 262.5 / 262.5 Inj 250 ML @ 250 mls/hr IV.SIG Q12H [facility] Rx#:[id number] Output: Urine 1999 Urine Amount (Catheter) 0 / 2300 Indwelling Urethral Catheter 2299 / 2299 Other: Date of Last Bowel Movement 12/26/17 # Bowel Movements 1 Result Diagrams: 12/26/17 04:09 12/25/17 05:28 Other Results: Microbiology 12/24/17 16:59 Blood - Peripheral Aerobic Blood Culture - Preliminary No growth in 1 day 12/24/17 16:59 Blood - Peripheral Anaerobic Blood Culture - Preliminary No growth in 1 day 12/24/17 16:50 Blood - Peripheral Aerobic Blood Culture - Preliminary No growth in 1 day 12/24/17 16:50 Blood - Peripheral Anaerobic Blood Culture - Preliminary No growth in 1 day 12/24/17 23:20 Sputum - Endotracheal Gram Stain - Final Imaging: Microbiology 12/24/17 16:59 Blood - Peripheral Aerobic Blood Culture - Preliminary No growth in 1 day 12/24/17 16:59 Blood - Peripheral Anaerobic Blood Culture - Preliminary No growth in 1 day 12/24/17 16:50 Blood - Peripheral Aerobic Blood Culture - Preliminary No growth in 1 day 12/24/17 16:50 Blood - Peripheral Anaerobic Blood Culture - Preliminary No growth in 1 day 12/24/17 23:20 Sputum - Endotracheal Gram Stain - Final Objective Remarks: GENERAL: 72 yoAA female currently orotracheally intubated SKIN: Warm and dry. No rash HEAD: Atraumatic. Normocephalic. EYES: Pupils equal and round. No scleral icterus. No injection or drainage. ENT: No nasal bleeding or discharge. Mucous membranes pink and moist. NECK: Trachea midline. No JVD. CARDIOVASCULAR: Regular rate and rhythm. S1, S2 predose 4. RESPIRATORY: No accessory muscle use. Clear to auscultation. Breath sounds equal bilaterally. GASTROINTESTINAL: Abdomen obese non-tender, with hypoactive bowel sounds appreciated MUSCULOSKELETAL: Extremities trace nonpitting bilateral lower extremity edema. No obvious deformities. NEUROLOGICAL: On sedation vacation extremely agitated/moves all 4 extremities but not following commands currently. Assessment and Plan - Assessment and Plan Plan: Neuro/Psych: Acute encephalopathy secondary to metabolic causes and hypercapnia Depressive disorder NOS History of cataracts Propofol currently at 30 mcg/kg/min for sedation while intubated Goal of RASS -2, Daily sedation vacation Currently on bupropion 150 mg twice daily/home medication Continue pramipexole 0.25 mg at night for sleep related restless leg syndrome Acetaminophen 650 p.o. every 6 hours as needed fever Holding meloxicam. Discontinue ketorolac CV: Congestive heart failure systolic unknown if chronic or acute echocardiogram completed results pending History of essential hypertension Hyperlipidemia Elevated troponin 0.15 likely demand ischemia type II Home medications include amlodipine 10 mg daily for hypertension. Home medications include aspirin 81 mg daily. Home medication is simvastatin. Currently on atorvastatin 10 mg daily for dyslipidemia. Continue 2D echocardiogram LVEF moderately reduced with an estimated ejection fraction in the range of 40-45%. Normal left ventricular size. Wall thickness is measured at the upper limits of normal. No regional wall motion abnormalities are present Currently on budesonide 2 mg intravenous twice daily. 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 Follow trends. No indication for transfusion of blood products at this time GI: Cholelithiasis Colonic diverticulosis Ventral hernia Abdominal CT revealed a 2.9 x 2.5 similar gallstone/nonobstructing. No signs of inflammation. Ultrasound of gallbladder revealed normal common bile duct. Large stone without obstruction. See above No suspicion of acute cholecystitis, cancel HIDA scan : Bilateral nephrolithiasis with nonobstructing calculi Evaluated by urology. KUB revealed no bladder stone. Endo: Diabetes mellitus Sliding scale insulin aspart insulin to maintain euglycemia TSH was 0.757 on admission Renal: Acute kidney injury CT abdomen/pelvis revealed a enhancement of the right lower kidney possibly cancerous. 3.4 x 3.9 cm follow-up with Dr. Larry as an outpatient Creatinine currently 1.5, continue IV hydration a.m. laboratories pending Monitor urine output Accurate i's and O's Avoid nephrotoxic medication Heme: Monitor CBC daily. Follow trends. No indication for transfusion of blood products at this time ID: Bibasilar pneumonia Blood cultures 2, sputum and influenza a and B ordered Negative UA on admission Continue piperacillin/tazobactam, doxycycline and vancomycin day #3 FEN: Replace electrolytes as clinically indicated Access -Utilize peripheral IV. Central line if indicated Prophylaxis -GI -pantoprazole -DVT - SCD/enoxaparin Level 2 follow-up
[2017-12-26 10:35] LABS: Sodium 142 meq/L (136-145)
--- NOTE | 2017-12-26 12:26 | P.DIET ---
Nutritional Evaluation Type of nutrition evaluation: initial Nutrition consult regarding: Tube Feeding Screening comments: Pt assessed per SCCM and ASPEN guidelines for critically ill pts with a BMI >30. Pt's BMI = 44.4 Objective - Diagnosis Chest Pain, Elevated Troponin - Objective % IBW: 218 (IBW = 115#) Body Weight Used for Calculations: IBW (52.3 kg used for protein needs), Actual (113.7 kg used for calorie needs) Energy Needs - Lower Range (kCal/kg): 11 Energy Needs - Upper Range (kCal/kg): 14 Lower Limit kCal/kg (kCals): 1,251 Upper Limit kCal/kg (kCals): 1,592 Lower Limit Protein Factor (Grams per Kg): 1.8 Upper Limit Protein Factor (Grams per Kg): 2.2 Lower Protein Needs (Protein): 94 Upper Protein Needs (Protein): 115 Dietitian Reviewed in Medical Record: Curent medications, Intake & Output, Labs , Medical history, Tube feeding Diet Order: NPO Assessment Assessment: Pt is at high nutrition risk 2' to need for TFing. Current order is for Glucerna 1.5 @ 55 mls/hr goal. Recommend change to Vital High Protein @ 50 mls/ hr to provide 1200 kcals, 105 gms protein and 1003 mls of free water. Some additional kcals will be provided by propofol(1.1 kcal/ml). Currently receiving 21 mls/hr of propofol (554 kcals). Recommendations: Vital High Protein @ 50 mls/hr goal Dietitian to Monitor: Lab values, Tube feeding tolerance, Weight change, Medical course
[2017-12-26] MEDS ORDERED: Vancomycin Inj 1,250 MG in Sodium Chlor 0.9% Inj 250 ML IV.SIG SCH (13:00)
[2017-12-26] MEDS: buPROPion 150 MG 12 HR Tablet PO SCH ×2 (13:28→20:05)
[2017-12-26 14:09] LABS: ABG Base Excess -0.2 mmol/L (-2-2); ABG PCO2 29 mmHg (38-42); ABG PO2 64 mmHG (61-120)
[2017-12-26] MEDS: Montelukast 10 MG Tablet PO SCH (17:10)
[2017-12-26] MEDS: Pantoprazole Inj 40 MG Vial IV.PUSH SCH (17:10)
--- NOTE | 2017-12-26 22:23 | MB ---
cc: Leeanne Vicente MD DATE: 12/26/2017 REASON FOR CONSULTATION: Respiratory failure and history of asthma. HISTORY OF PRESENT ILLNESS: This is a 72-year-old lady who has a longstanding history of chronic bronchitis, asthma, history of hypertension and diabetes, history of hyperlipidemia and obesity with sleep apnea, who had been admitted to [facility] initially for chest and abdominal pain. The patient was sent for a CT angiogram and had no evidence of pulmonary emboli and thus was sent home on hydrocodone tablets, but she then became more lethargic and was brought to the [facility] Emergency Room on 12/23/[address] of the abdomen showed bilateral nephrolithiasis, a ventral hernia and a cyst of the right kidney. She was in respiratory failure and was poorly responsive and thus had to be intubated due to severe hypercapnia. The patient is now on ventilator support, but she is awake and responds to some commands. Chest x-ray showed a hazy right lower lobe infiltrate. She has now been kept partially sedated, but on 40% FiO2. PAST MEDICAL HISTORY: Includes history of diabetes, history of hypertension, history of CHF and history of COPD and asthma. PAST SURGICAL HISTORY: Includes a hysterectomy and knee surgery. HABITS: The patient has never smoked. No history of alcohol use. FAMILY HISTORY: Noncontributory. There is a history of hypertension and diabetes. MEDICATIONS: List was reviewed from the chart and includes: 1. Bupropion 150 mg b.i.d. 2. Prednisone 10 mg daily. 3. Singulair 10 mg daily. 4. Mirapex 0.25 mg b.i.d. 5. Tamsulosin 0.4 mg at bedtime. 6. Bumex 2 mg daily. 7. Nebulized DuoNeb solution q.i.d. 8. Symbicort 160/4.5 mcg 2 puffs b.i.d. REVIEW OF SYSTEMS: Unable to obtain. The patient is intubated and on ventilator support. ALLERGIES: NO DRUG ALLERGIES ARE LISTED. PHYSICAL EXAMINATION: GENERAL: This is a very obese, elderly female who was intubated, responsive, assisting the ventilator. VITAL SIGNS: Blood pressure 136/70, pulse 85, respirations 18, temperature 97.5. HEENT: Head is normocephalic. Pupils are reactive and equal. Sclerae are clear. Throat is mildly injected. There are secretions in the throat. NECK: Supple. No bruits, thyroid enlargement or lymphadenopathy. CHEST: Decreased breath sounds at the bases with occasional wheezes bilaterally and basilar crackles. HEART: Sounds are irregular. S1 and S2 with no murmur. No S3. ABDOMEN: Soft, protuberant without masses. There is a ventral hernia. Bowel sounds are active. EXTREMITIES: Minimal edema. NEUROLOGIC: The patient does moves her extremities to stimuli and with withdrawals to command. Babinski negative. SKIN: Dry and cool. IMPRESSION: 1. Acute hypercapnic respiratory failure. 2. Congestive heart failure and cardiomyopathy. 3. Hypertension. 4. Diabetes mellitus type 2. 5. Cholelithiasis and nephrolithiasis 6. Obstructive sleep apnea syndrome and exogenous obesity. PLAN: The patient will be maintained on ventilator support. We will put the PEEP up to 7, FiO2 to 40% and get a blood gas study today. Nebulized DuoNeb solution added every 4 hours and Flovent inhaler 2 puffs twice a day as well as Solu-Medrol 40 mg IV every 8 hours. Continue with sedation as needed and continue Singulair 10 mg once a day. Antibiotic therapy will be continued including doxycycline 100 mg every 12 hours and Bumex injection 1 mg IV daily. I will follow the case with you, Dr. Diggs. Thank you for this consultation. MD MARGARET Vieira/jason , 07:35 PM , 07:50 PM
[2017-12-27] MEDS: Propofol 1000 mg/100 ml Inj 1,000 MG/100 ML BOTTLE IV.CONT PRN ×3 (00:42→06:51)
[2017-12-27] MEDS: Oral Hygiene Kit OROPHARYNG SCH ×4 (00:43→17:21)
[2017-12-27] MEDS: Piperacil/Tazo 2.25 GM Premix 50 ML IV.SIG SCH ×4 (01:42→19:57)
[2017-12-27] MEDS: MethylPREDNISolone Sod Succinate Inj 40 MG/ML Vial IV.PUSH SCH ×2 (05:21→21:01)
--- NOTE | 2017-12-27 05:50 | XR ---
EXAM DATE: 12/27/2017 5:05 AM EDT AGE/SEX: 72 years / Female INDICATIONS: Short of breath. CLINICAL DATA: This is the patient's subsequent encounter. Patient reports that signs and symptoms h ave been present for 1 week and indicates a pain score of 0/10. MEDICAL/SURGICAL HISTORY: Chronic obstructive pulmonary disease. Congestive heart failure. Hy pertension. Asthma. Diabetes. None. COMPARISON: [facility] [place], CHEST 1V SINGLE AP, 12/26/2017. . FINDINGS: Endotracheal tube and nasogastric tube remain in satisfactory position. Hazy bibasilar pleural-parenc hymal opacity is again noted, slightly worse on the right than the left. Cardiac contours are unchang ed accounting for differences in technique and projection. CONCLUSION: No significant change. Electronically signed by: John Paul Thurston MD 12/27/2017 5:49 AM EDT
[2017-12-27 05:57] LABS: Baso % (Auto) 0.2 % (0.0-2.0); Hemoglobin 14.1 gm/dL (11.6-15.3); Lymph # (Auto) 0.8 th/mm3 (1.0-4.8); Lymph % (Auto) 8.6 % (9.0-44.0); Mean Corpuscular Hemoglobin 29.3 pg (27.0-34.0); Mean Corpuscular Volume 91.6 fL (80.0-100.0); Mean Platelet Volume 10.3 fL (7.0-11.0); Mono # (Auto) 0.4 th/mm3 (0.0-0.9); Mono % (Auto) 4.4 % (0.0-8.0); Neut # (Auto) 7.9 th/mm3 (1.8-7.7); Neut % (Auto) 86.8 % (16.0-70.0); Platelet Count 187 th/mm3 (150-450); Red Cell Distribution Width 15.4 % (11.6-17.2); White Blood Count 9.2 th/mm3 (4.0-11.0)
[2017-12-27 06:14] LABS: Albumin 2.9 g/dL (3.4-5.0); Anion Gap 15 meq/L (5-15); Aspartate Aminotransferase 20 U/L (15-37); Blood Urea Nitrogen 24 mg/dL (7-18); Calcium 8.7 mg/dL (8.5-10.1); Chloride 102 meq/L (98-107); Glomerular Filtration Rate 47 mL/min (>89); Glucose,Random 185 mg/dL (74-106); Magnesium 2.2 mg/dL (1.5-2.5); Potassium 3.6 meq/L (3.5-5.1); Sodium 137 meq/L (136-145)
[2017-12-27 06:18] LABS: Alanine Aminotransferase 31 U/L (10-53); Alkaline Phosphatase 91 U/L (45-117); Phosphorus 3.4 mg/dL (2.5-4.9); Total Protein 7.9 g/dL (6.4-8.2)
[2017-12-27] MEDS: amLODIPine 10 MG Tablet PO SCH (08:38)
[2017-12-27] MEDS: Enoxaparin Inj 40 MG/0.4 ML Syringe SQ SCH (08:38)
[2017-12-27] MEDS: Chlorhexidine 0.12% Oral Kit 15 ML UDC OROPHARYNG SCH ×2 (08:38→21:00)
[2017-12-27] MEDS: buPROPion 150 MG 12 HR Tablet PO SCH ×2 (08:39→21:02)
[2017-12-27] MEDS: Insulin NovoLOG Aspart Correctional Sugar Inj SQ SCH ×4 (08:45→21:00)
--- NOTE | 2017-12-27 09:17 | P.PNCC ---
Subjective Subjective Remarks/Hospital Course: This is a 72-year-old AA female. Date of admission 12/23/2017. Date of consultation 12/24/2017. Past medical history includes likely chronic systolic heart failure, essential hypertension, hyperlipidemia, diabetes mellitus, elevated BMI, depression, cataracts and COPD. Patient was originally seen at [facility] on 12/22 with chest pain/abdominal pain. At that facility, reportedly had a CT pulmonary revealed no pulmonary embolus and. She was sent home on hydrocodone/acetaminophen. This made her drowsy. She presented to [facility] on 12/23. Essentially, patient received a CT of the abdomen pelvis which revealed a gallstone, bilateral nonobstructing nephrolithiasis colonic diverticulosis and ventral hernia along with a cyst in the right kidney. Patient was receiving hydromorphone for pain management. Patient rapid response team today due to altered mental status. ABG revealed significant CO2 retention. Attempted BiPAP for approximately an hour with minimal improvement of mentation and CO2. Decision was made to emergently intubate. Chest x-ray revealed a right lower lobe infiltrate. Will be started on empiric antibiotics. Stat laboratories including likely, troponin pending. Nuclear medicine hepatobiliary scan pending. Repeat CT abdomen/pelvis pending 12/25: Remains intubated sedated critically ill encephalopathy. CT of the chest shows bibasilar consolidation, also large 3.4 and a 3.9 cm right kidney mass suspicious for renal cell carcinoma. A urology consult is pending at this time. On empiric antibiotics for pneumonia sputum and blood cultures are pending at this time. Patient gets agitated on sedation lightening 12/26: Afebrile. Remains on propofol drip at 30 mcg/kg/min. Will attempt spontaneous breathing trials today. If not tube feeds will be initiated see orders. A.m. laboratories pending Subjective: 12/27: Afebrile. Currently on CPAP trial 12/ and 40%. Received 1 dose of bumetanide 1 mg 1 now. Arousable and follows commands. Objective Vital Signs / I&O: Vital Signs 12/26/17 10:58 12/26/17 12:00 12/26/17 15:44 Temperature 98 F Pulse Rate 102 H 106 H 90 Respiratory Rate 18 Blood Pressure 151/90 H Pulse Oximetry 93 L 94 L 94 L 12/26/17 16:00 12/26/17 20:00 12/26/17 20:10 Temperature 97.9 F 99 F Pulse Rate 91 H 97 H 97 H Respiratory Rate 18 Blood Pressure 132/91 H 134/94 H Pulse Oximetry 95 96 96 12/27/17 00:00 12/27/17 01:33 12/27/17 04:00 Temperature 98.8 F 99.3 F Pulse Rate 95 H 93 H 89 Respiratory Rate 18 Blood Pressure 149/90 H 126/89 Pulse Oximetry 95 96 93 L 12/27/17 04:21 12/27/17 07:39 12/27/17 07:40 Temperature Pulse Rate 86 88 Respiratory Rate 18 Blood Pressure Pulse Oximetry 98 97 12/27/17 08:00 Temperature 98.8 F Pulse Rate 92 H Respiratory Rate 18 Blood Pressure 159/88 H Pulse Oximetry 95 Intake & Output 12/26/17 12/27/17 12/27/17 18:59 06:59 18:59 Intake Total 662.5 / 662.5 2600 / 2600 Output Total 1500 / 1500 700 / 700 Balance -837.5 / -837.5 1900 / 1900 Weight 112.9 kg Intake: IV 662.5 / 662.5 2600 / 2600 Diprivan 1000 mg/100 ml Inj 1, 300 / 300 500 / 500 000 mg In 100 ml @ 5 MCG/KG/MIN 3.513 mls/hr IV.CONT TITRATE PRN Rx#:[id number] NS Inj 1,000 ML @ 75 mls/hr IV. 1000 / 1000 CONT .[id number] UZAIR Rx#:[id number] 1/2 Normal Saline Inj 1,000 ML 1000 / 1000 @ 42 mls/hr IV.CONT .[id number] UZAIR Rx#:[id number] Zosyn 2.25 GM Premix 50 ML @ 100 / 100 100 / 100 100 mls/hr IV.SIG Q6H UZAIR Rx#: [id number] Vancomycin Inj 1,250 MG In NS 262.5 / 262.5 Inj 250 ML @ 250 mls/hr IV.SIG Q24H UZAIR Rx#:[id number] Output: Urine Amount (Catheter) 1500 / 1500 700 / 700 Indwelling Urethral Catheter 1500 / 1500 700 / 700 Other: Date of Last Bowel Movement 12/26/17 12/26/17 # Bowel Movements 0 # Incontinent Bowel Movements 2 Result Diagrams: 12/27/17 04:44 12/27/17 04:44 Other Results: Microbiology 12/24/17 23:20 Sputum - Endotracheal Gram Stain - Final 12/24/17 23:20 Sputum - Endotracheal Sputum Culture - Preliminary gram negative rods 12/24/17 16:59 Blood - Peripheral Aerobic Blood Culture - Preliminary No growth in 2 days 12/24/17 16:59 Blood - Peripheral Anaerobic Blood Culture - Preliminary No growth in 2 days 12/24/17 16:50 Blood - Peripheral Aerobic Blood Culture - Preliminary No growth in 2 days 12/24/17 16:50 Blood - Peripheral Anaerobic Blood Culture - Preliminary No growth in 2 days Imaging: Abdomen/Pelvis CT 12/23/17 00:00 CONCLUSION: 1. Bibasilar consolidating airspace disease within the lower lobes. 2. 2.9 cm calcified gallstone without evidence of biliary obstructive disease or acute inflammation. 3. Multiple bilateral renal calculi without evidence of hydronephrosis. 4. Uncomplicated colonic diverticulosis. 5. Large ventral hernia containing both small and large intestinal loops. 6. Status post hysterectomy. Chest X-Ray 12/23/17 05:54 CONCLUSION: 1. Cardiomegaly with mild positive fluid balance. 2. Left lower lobe airspace disease and likely trace left pleural effusion. Gallbladder Ultrasound 12/23/17 07:09 CONCLUSION: 1. Shadowing from the gallbladder most characteristic of a large calcified gallstone. 2. Hyperechoic heterogeneous hepatic echotexture characteristic of hepatocellular disease. 3. No evidence of biliary obstruction. Abdomen X-Ray 12/24/17 00:00 CONCLUSION: Negative examination. No discrete calculi. Chest X-Ray 12/24/17 00:00 CONCLUSION: Tip of endotracheal tube 1 cm from the shannan. Unchanged bilateral infiltrates. Chest X-Ray 12/24/17 10:30 CONCLUSION: Bilateral parenchymal consolidation. Chest X-Ray 12/24/17 15:44 CONCLUSION: Unchanged cardiomegaly with pulmonary vascular engorgement and bilateral pulmonary infiltrates. Pulmonary edema suspected. Abdomen/Pelvis CT 12/25/17 00:00 CONCLUSION: 1. 8 mm renal calculus in the central right renal pelvis noted on 12/23/2017 CT exam is no longer visualized and may have passed. No hydronephrosis. 2. Additional ill-defined bilateral medullary calcifications are likely obscured by contrast in today's exam. 3. 3.4 x 3.9 cm enhancing solid mass in the anterior inferior pole of the right kidney concerning for renal cell carcinoma until proven otherwise. 4. Prominent colonic diverticulosis without evidence for diverticulitis. 5. Large ventral abdominal hernia containing portions of normal-appearing large and small bowel. No evidence for bowel obstruction. 6. Cholelithiasis. 7. Progressive bibasilar airspace consolidation with new trace right pleural effusion. Although findings may reflect atelectasis, consider aspiration in the appropriate clinical setting. 8. 2.8 cm left adrenal adenoma. Subcentimeter right adrenal mass with indeterminate density. This can be further characterized with adrenal mass CT/ MRI exam as clinically appropriate on an outpatient basis. 9. Additional ancillary findings, as above. Chest X-Ray 12/25/17 00:00 CONCLUSION: Unchanged exam. Radiographic pattern suggesting pulmonary edema. Chest X-Ray 12/26/17 06:00 CONCLUSION: No significant change Chest X-Ray 12/27/17 06:00 CONCLUSION: No significant change. Objective Remarks: GENERAL: 72 yo AA female currently orotracheally intubated SKIN: Warm and dry. No rash HEAD: Atraumatic. Normocephalic. EYES: Pupils equal and round. No scleral icterus. No injection or drainage. ENT: No nasal bleeding or discharge. Mucous membranes pink and moist. NECK: Trachea midline. No JVD. CARDIOVASCULAR: Regular rate and rhythm. S1, S2 no S4. Without murmur RESPIRATORY: No accessory muscle use. Clear to auscultation. Breath sounds equal bilaterally. GASTROINTESTINAL: Abdomen obese non-tender, with hypoactive bowel sounds appreciated MUSCULOSKELETAL: Extremities trace nonpitting bilateral lower extremity edema. No obvious deformities. NEUROLOGICAL: On sedation vacation extremely agitated/moves all 4 extremities but not following commands currently. Assessment and Plan - Assessment and Plan Plan: Neuro/Psych: Acute encephalopathy secondary to metabolic causes and hypercapnia Depressive disorder NOS History of cataracts Propofol currently at 30 mcg/kg/min for sedation while intubated Goal of RASS -2, Daily sedation vacation Currently on bupropion 150 mg twice daily/home medication Continue pramipexole 0.25 mg at night for sleep related restless leg syndrome Acetaminophen 650 p.o. every 6 hours as needed fever Holding meloxicam. Discontinue ketorolac CV: Congestive heart failure systolic unknown if chronic or acute echocardiogram completed results pending History of essential hypertension Hyperlipidemia Elevated troponin 0.15 likely demand ischemia type II Home medications include amlodipine 10 mg daily for hypertension. Home medications include aspirin 81 mg daily. Home medication is simvastatin. Currently on atorvastatin 10 mg daily for dyslipidemia. Continue 2D echocardiogram LVEF moderately reduced with an estimated ejection fraction in the range of 40-45%. Normal left ventricular size. Wall thickness is measured at the upper limits of normal. No regional wall motion abnormalities are present Currently on budesonide 1 mg intravenous twice daily. s/p 1 dose of acetazolamide on 12/25 [employer] Resp: Acute hypoxemic respiratory failure COPD Pneumonia/community acquired present on admission Intubated for hypoxemic and hypercarbic resp failure. PRVC 18/600/04/15/40, vent bundle Budesonide aerosols 0.5/2 1 inhalation twice daily Albuterol/ipratropium aerosols every 4 hours with albuterol aerosols every 2 hours as needed for dyspnea Methylprednisolone succinate 40 mg IV every 8 hours Continue montelukast 10 mg daily Chest x-ray/abdominal CT shows bibasilar consolidation Repeat ABG today Dr. Vicente is her regular edge bonder Negative CT pulmonary angiogram at [facility] reported 12/22 Monitor CBC daily. Follow trends. No indication for transfusion of blood products at this time GI: Cholelithiasis Colonic diverticulosis Ventral hernia Abdominal CT revealed a 2.9 x 2.5 similar gallstone/nonobstructing. No signs of inflammation. Ultrasound of gallbladder revealed normal common bile duct. Large stone without obstruction. See above No suspicion of acute cholecystitis, cancel HIDA scan Currently Glucerna 1.5 goal 55 cc an hour. Nutrition recommends vital 1.5 at 50 cc an hour Pantoprazole for GI prophylaxis Docusate sodium/senna 1 tablet twice daily for bowel regimen : Bilateral nephrolithiasis with nonobstructing calculi Evaluated by urology. KUB revealed no bladder stone. Endo: Diabetes mellitus Sliding scale insulin aspart insulin to maintain euglycemia TSH was 0.757 on admission Renal: Acute kidney injury CT abdomen/pelvis revealed a enhancement of the right lower kidney possibly cancerous. 3.4 x 3.9 cm follow-up with Dr. Larry as an outpatient Creatinine currently 1.3, Monitor urine output Accurate i's and O's Avoid nephrotoxic medication Heme: Monitor CBC daily. Follow trends. No indication for transfusion of blood products at this time ID: Bibasilar pneumonia -gram-negative devin sputum Blood cultures 2 no growth Sputum with gram-negative rods influenza a and B ordered Negative UA on admission Continue piperacillin/tazobactam, doxycycline day #4. Discontinue today vancomycin FEN: Replace electrolytes as clinically indicated Access -Utilize peripheral IV. Central line if indicated Prophylaxis -GI -pantoprazole -DVT - SCD/enoxaparin Level 2 follow-up
[2017-12-27] MEDS ORDERED: Potassium Chloride 25 MEQ Effervescent Tablet PO ONE (09:30)
--- NOTE | 2017-12-27 10:42 | P.PNFP ---
Subjective Interval history: Ms Preston had no acute events overnight. This morning she is awake and alert and has no abdominal pain. Only pain she is concerned about today is throat pain likely from the tube in her throat. She is still intubated but on CPAP trial now and FiO2 40%. There is a chance the clinical specialist medical device will discontinue the ventilator today depending on how she tolerates it; in the past she has been agitated on attempts to discontinue the ventilator and the tube in her throat. He has been following commands. There is there is no appreciable white count this morning. Dr. Vicente her supervisor shaving and splitting saw her yesterday. Denies chest pain, shortness of breath, nausea, vomiting, diarrhea, abdominal and leg pain. <Az Hood III H - 12/27/17 10:42> Results - Labs Result diagrams: 12/27/17 04:44 12/27/17 04:44 <Danielito Cast L - 12/27/17 22:03> Abnormal lab results 12/27/17 12/27/17 12/27/17 Range/Units 04:44 04:44 08:35 Neut % (Auto) 86.8 H (16.0-70.0) % Lymph % (Auto) 8.6 L (9.0-44.0) % Neut # (Auto) 7.9 H (1.8-7.7) th/mm3 Lymph # (Auto) 0.8 L (1.0-4.8) th/mm3 Carbon Dioxide 20.0 L (21.0-32.0) meq/L BUN 24 H (7-18) mg/dL Creatinine 1.33 H (0.50-1.00) mg/dL Estimated GFR 47 L (>89) mL/min POC Glucose 230 H (68-110) mg/dl Random Glucose 185 H (74-106) mg/dL Albumin 2.9 L (3.4-5.0) g/dL 12/27/17 12/27/17 12/27/17 Range/Units 12:36 18:05 20:22 Neut % (Auto) (16.0-70.0) % Lymph % (Auto) (9.0-44.0) % Neut # (Auto) (1.8-7.7) th/mm3 Lymph # (Auto) (1.0-4.8) th/mm3 Carbon Dioxide (21.0-32.0) meq/L BUN (7-18) mg/dL Creatinine (0.50-1.00) mg/dL Estimated GFR (>89) mL/min POC Glucose 226 H 168 H 163 H (68-110) mg/dl Random Glucose (74-106) mg/dL Albumin (3.4-5.0) g/dL Short CBC 12/27/17 Range/Units 04:44 WBC 9.2 (4.0-11.0) th/mm3 Hgb 14.1 (11.6-15.3) gm/dL Hct 44.0 (35.0-46.0) % Plt Count 187 (150-450) th/mm3 BMP 12/27/17 04:44 Sodium 137 Potassium 3.6 Chloride 102 Carbon Dioxide 20.0 L BUN 24 H Creatinine 1.33 H Calcium 8.7 Liver Function 12/27/17 Range/Units 04:44 Total Bilirubin 0.5 (0.2-1.0) mg/dL AST 20 (15-37) U/L ALT 31 (10-53) U/L Alkaline Phosphatase 91 (45-117) U/L Albumin 2.9 L (3.4-5.0) g/dL <Danielito Cast L - 12/27/17 22:03> Abnormal lab results 12/26/17 12/26/17 12/26/17 Range/Units 09:23 12:39 13:55 Neut % (Auto) (16.0-70.0) % Lymph % (Auto) (9.0-44.0) % Neut # (Auto) (1.8-7.7) th/mm3 Lymph # (Auto) (1.0-4.8) th/mm3 ABG pH 7.50 H (7.380-7.420) ABG pCO2 29 L (38-42) mmHg Carbon Dioxide (21.0-32.0) meq/L BUN 22 H (7-18) mg/dL Creatinine 1.38 H (0.50-1.00) mg/dL Estimated GFR 45 L (>89) mL/min POC Glucose 166 H (68-110) mg/dl Random Glucose 129 H (74-106) mg/dL Albumin 2.9 L (3.4-5.0) g/dL Vancomycin Trough 13.9 H (5.0-10.0) mcg/mL 12/26/17 12/26/17 12/27/17 Range/Units 16:59 20:26 04:44 Neut % (Auto) 86.8 H (16.0-70.0) % Lymph % (Auto) 8.6 L (9.0-44.0) % Neut # (Auto) 7.9 H (1.8-7.7) th/mm3 Lymph # (Auto) 0.8 L (1.0-4.8) th/mm3 ABG pH (7.380-7.420) ABG pCO2 (38-42) mmHg Carbon Dioxide (21.0-32.0) meq/L BUN (7-18) mg/dL Creatinine (0.50-1.00) mg/dL Estimated GFR (>89) mL/min POC Glucose 143 H 179 H (68-110) mg/dl Random Glucose (74-106) mg/dL Albumin (3.4-5.0) g/dL Vancomycin Trough (5.0-10.0) mcg/mL 12/27/17 12/27/17 Range/Units 04:44 08:35 Neut % (Auto) (16.0-70.0) % Lymph % (Auto) (9.0-44.0) % Neut # (Auto) (1.8-7.7) th/mm3 Lymph # (Auto) (1.0-4.8) th/mm3 ABG pH (7.380-7.420) ABG pCO2 (38-42) mmHg Carbon Dioxide 20.0 L (21.0-32.0) meq/L BUN 24 H (7-18) mg/dL Creatinine 1.33 H (0.50-1.00) mg/dL Estimated GFR 47 L (>89) mL/min POC Glucose 230 H (68-110) mg/dl Random Glucose 185 H (74-106) mg/dL Albumin 2.9 L (3.4-5.0) g/dL Vancomycin Trough (5.0-10.0) mcg/mL Short CBC 12/27/17 Range/Units 04:44 WBC 9.2 (4.0-11.0) th/mm3 Hgb 14.1 (11.6-15.3) gm/dL Hct 44.0 (35.0-46.0) % Plt Count 187 (150-450) th/mm3 BMP 12/26/17 12/27/17 09:23 04:44 Sodium 142 137 Potassium 3.5 3.6 Chloride 103 102 Carbon Dioxide 27.0 20.0 L BUN 22 H 24 H Creatinine 1.38 H 1.33 H Calcium 8.7 8.7 Liver Function 12/26/17 12/27/17 Range/Units 09:23 04:44 Total Bilirubin 0.5 0.5 (0.2-1.0) mg/dL AST 20 20 (15-37) U/L ALT 29 31 (10-53) U/L Alkaline Phosphatase 94 91 (45-117) U/L Albumin 2.9 L 2.9 L (3.4-5.0) g/dL <Az Hood III - 12/27/17 10:42> - Imaging Impressions Chest X-Ray 12/27/17 00:00 CONCLUSION: Bilateral lower lobe atelectasis versus pneumonia. There has been no significant change when compared to the prior exam. Chest X-Ray 12/27/17 06:00 CONCLUSION: No significant change. <Danielito Cast L - 12/27/17 22:03> Impressions Chest X-Ray 12/27/17 06:00 CONCLUSION: No significant change. <Az Hood III - 12/27/17 10:42> Physical Exam Vital signs: Vital Signs 12/27/17 00:00 12/27/17 01:33 12/27/17 04:00 Temperature 98.8 F 99.3 F Pulse Rate 95 H 93 H 89 Respiratory Rate 18 18 18 Blood Pressure 149/90 H 126/89 Pulse Oximetry 95 96 93 L 12/27/17 04:21 12/27/17 07:39 12/27/17 07:40 Temperature Pulse Rate 86 88 Respiratory Rate 18 18 Blood Pressure Pulse Oximetry 98 97 12/27/17 08:00 12/27/17 11:58 12/27/17 12:00 Temperature 98.8 F 99 F Pulse Rate 92 H 118 H Respiratory Rate 18 24 Blood Pressure 159/88 H 121/90 Pulse Oximetry 95 98 96 12/27/17 15:58 12/27/17 16:00 12/27/17 19:44 Temperature 98.2 F Pulse Rate 92 H 92 H 92 H Respiratory Rate 18 24 20 Blood Pressure 115/72 Pulse Oximetry 98 97 Intake & Output 12/27/17 12/27/17 12/28/17 06:59 18:59 06:59 Intake Total 2600 / 2600 450 / 450 1050 / 1050 Output Total 700 / 700 1350 / 1350 Balance 1900 / 1900 -900 / -900 1050 / 1050 Weight 112.9 kg Intake: IV 2600 / 2600 100 / 100 1050 / 1050 Diprivan 1000 mg/100 ml Inj 1, 500 / 500 000 mg In 100 ml @ 5 MCG/KG/MIN 3.513 mls/hr IV.CONT TITRATE PRN Rx#:[id number] NS Inj 1,000 ML @ 75 mls/hr IV. 1000 / 1000 CONT .[id number] [facility] Rx#:[id number] 1/2 Normal Saline Inj 1,000 ML 1000 / 1000 1000 / 1000 @ 42 mls/hr IV.CONT .[id number] [facility] Rx#:[id number] Zosyn 2.25 GM Premix 50 ML @ 100 / 100 100 / 100 50 / 50 100 mls/hr IV.SIG Q6H [facility] Rx#: [id number] Oral 350 / 350 Output: Urine Amount (Catheter) 700 / 700 1350 / 1350 Indwelling Urethral Catheter 700 / 700 1350 / 1350 Other: Date of Last Bowel Movement 12/26/17 12/27/17 12/27/17 # Bowel Movements 0 # Incontinent Bowel Movements 1 <Danielito Cast L - 12/27/17 22:03> Vital Signs 12/26/17 10:58 12/26/17 12:00 12/26/17 15:44 Temperature 98 F Pulse Rate 102 H 106 H 90 Respiratory Rate 18 18 18 Blood Pressure 151/90 H Pulse Oximetry 93 L 94 L 94 L 12/26/17 16:00 12/26/17 20:00 12/26/17 20:10 Temperature 97.9 F 99 F Pulse Rate 91 H 97 H 97 H Respiratory Rate 18 18 18 Blood Pressure 132/91 H 134/94 H Pulse Oximetry 95 96 96 12/27/17 00:00 12/27/17 01:33 12/27/17 04:00 Temperature 98.8 F 99.3 F Pulse Rate 95 H 93 H 89 Respiratory Rate 18 18 Blood Pressure 149/90 H 126/89 Pulse Oximetry 95 96 93 L 12/27/17 04:21 12/27/17 07:39 12/27/17 07:40 Temperature Pulse Rate 86 88 Respiratory Rate 18 18 Blood Pressure Pulse Oximetry 98 97 12/27/17 08:00 Temperature 98.8 F Pulse Rate 92 H Respiratory Rate 18 Blood Pressure 159/88 H Pulse Oximetry 95 Intake & Output 12/26/17 12/27/17 12/27/17 18:59 06:59 18:59 Intake Total 662.5 / 662.5 2600 / 2600 Output Total 1500 / 1500 700 / 700 Balance -837.5 / -837.5 1900 / 1900 Weight 112.9 kg Intake: IV 662.5 / 662.5 2600 / 2600 Diprivan 1000 mg/100 ml Inj 1, 300 / 300 500 / 500 000 mg In 100 ml @ 5 MCG/KG/MIN 3.513 mls/hr IV.CONT TITRATE PRN Rx#:[id number] NS Inj 1,000 ML @ 75 mls/hr IV. 1000 / 1000 CONT .[id number] [facility] Rx#:[id number] 1/2 Normal Saline Inj 1,000 ML 1000 / 1000 @ 42 mls/hr IV.CONT .[id number] [facility] Rx#:[id number] Zosyn 2.25 GM Premix 50 ML @ 100 / 100 100 / 100 100 mls/hr IV.SIG Q6H [facility] Rx#: [id number] Vancomycin Inj 1,250 MG In NS 262.5 / 262.5 Inj 250 ML @ 250 mls/hr IV.SIG Q24H [facility] Rx#:[id number] Output: Urine Amount (Catheter) 1500 / 1500 700 / 700 Indwelling Urethral Catheter 1500 / 1500 700 / 700 Other: Date of Last Bowel Movement 12/26/17 12/26/17 # Bowel Movements 0 # Incontinent Bowel Movements 2 <Sana GARZAAz H - 12/27/17 10:42> Narrative: GENERAL: Obese female lying in bed intubated, light sedation, awake and alert, following commands, soft restraints still in place. EYES: Pupils equal and round and reactive. CARDIOVASCULAR: Regular rate and rhythm. No murmur appreciated RESPIRATORY: No accessory muscle use. Breath sounds difficult to appreciate due to mechanical ventilation sounds. CPAP, FiO2 40%, PEEP 7, 18 bpm GASTROINTESTINAL: Abdomen soft, obese. Large ventral hernia present. Bowel sounds present. Pt indicates there is no abdominal pain. MUSCULOSKELETAL: Extremities without clubbing, cyanosis. Pedal edema bilaterally, nonpitting. NEUROLOGICAL: Intubated and sedated as above. Awake, alert, oriented; however, pt cannot speak due to the tube. <Sana Az GARZA - 12/27/17 10:42> - Urinary Catheter Management Indwelling Urethral Catheter Cath placed during this visit: no <Danielito Cast 12/27/17 22:03> no <Az Hood III 12/27/17 10:42> Assessment and Plan - Assessment (1) Pneumonia Code(s): J18.9 - Pneumonia, unspecified organism Status: Acute (2) CHF (congestive heart failure) Code(s): I50.9 - Heart failure, unspecified Status: Acute (3) BRANDON (acute kidney injury) Code(s): N17.9 - Acute kidney failure, unspecified Status: Acute (4) Elevated troponin Code(s): R74.8 - Abnormal levels of other serum enzymes Status: Acute (5) Right flank pain Code(s): R10.9 - Unspecified abdominal pain Status: Resolved (6) COPD (chronic obstructive pulmonary disease) Code(s): J44.9 - Chronic obstructive pulmonary disease, unspecified Status: Acute (7) Diabetes type 2, controlled Code(s): E11.9 - Type 2 diabetes mellitus without complications Status: Acute (8) Hyperlipidemia Code(s): E78.5 - Hyperlipidemia, unspecified Status: Acute (9) Hypertension Code(s): I10 - Essential (primary) hypertension Status: Acute (10) Depression Code(s): F32.9 - Major depressive disorder, single episode, unspecified Status : Acute (11) Nutrition, metabolism, and development symptoms Code(s): R63.8 - Other symptoms and signs concerning food and fluid intake Status: Acute <Danielito Cast 12/27/17 22:03> (1) Pneumonia Code(s): J18.9 - Pneumonia, unspecified organism Status: Acute Plan: Pt with increasing bilateral lung opacities on imaging and transferred to [facility] [place] for worsening respiratory failure; pt intubated, sedated and on ventilator in ICU, clinical specialist medical device consulted and managing -Pulmonology consulted--Dr Vicente saw her yesterday--appreciate recs -Pt on ventilator with CPAP trial FiO2 40%, PEEP 7 -Started on IV Vanc 2g q12h, Zosyn 2.25 mg IV q6h, NG doxycycline 100 mg q12h for HCAP -Discontinue Vancomycin today -Sputum cx with gram neg rods; awaiting speciation/susceptibility -Methylprednisolone 40 mg q8h -Pulmicort nebulizer every 12 hours -Duonebs 2.5 mg q4h scheduled -Albuterol neb q2h PRN -Blood culture NGTD2 days -CXR no significant change showing NG tube placement is satisfactory (2) CHF (congestive heart failure) Code(s): I50.9 - Heart failure, unspecified Status: Acute Plan: Patient has maintained white blood cell count within normal limits. Has remained afebrile. Due to worsening respiratory status though consideration for pneumonia. Urine output 4.3 L yesterday -Patient's weight down slightly less than 7 kg from admission -Broad-spectrum antibiotics as above -Bumex held since 12/25 -Continue daily weights -NPO/fluid restriction History: -Echo with reduced LV systolic function and EF 40-45%, normal LV size, wall thickness upper limit normal, no wall abnormalities; RV not well visualized; normal left and right atria. -CXR 12/24 showing cardiomegaly with pulmonary vascular engorgement and bilateral pulmonary infiltrates with pulm edema suspected -BNP 236 -> 362 -Acetazolamide 250 mg IV once 12/24 5PM (3) BRANDON (acute kidney injury) Code(s): N17.9 - Acute kidney failure, unspecified Status: Acute Plan: -Creatinine mildly elevated at 1.12 on admission, 1.33 today. Unknown baseline. -Holding Bumex IV for diuresis as above -Gentle IV fluids half-normal saline at 42 mls/hr due to pt intubated on vent and due to patient's congestive heart failure -Repeat BMP in a.m. (4) Elevated troponin Code(s): R74.8 - Abnormal levels of other serum enzymes Status: Acute Plan: -Troponin 0.05 initially elevated to 0.10 and 0.15 with no chest pain, likely demand ischemia in the setting of mild BRANDON -EKG shows sinus rhythm with occasional PVCs, LVH, and mild ST changes -Continue continuous telemetry (5) Right flank pain Code(s): R10.9 - Unspecified abdominal pain Status: Resolved Plan: Pt denies abdominal and flank pain on exam today -Patient appears to have passed kidney stones between CT on 12/[address] on 12/25 -Urology consult - Does not recommend any intervention at this time and will follow-up as outpatient. -Will consult Heme/onc as outpt -Continue home pain medication due to patient's current respiratory status -Discontinue Flomax 0.4mg PO daily History: -Urinalysis did not show any evidence of infection or blood -Ultrasound of gallbladder shows large stone, no evidence of biliary obstruction -CT abdomen and pelvis 12/23 notable for multiple calcifications in each kidney as described above. Unsure if any of the stones are the etiology of her pain -CT abdomen and pelvis 12/25 showing absence of renal stones, large ventral hernia with normal-appearing small and large bowel, and 3.4x3.9cm renal mass (6) COPD (chronic obstructive pulmonary disease) Code(s): J44.9 - Chronic obstructive pulmonary disease, unspecified Status: Acute Plan: -On 2 L of oxygen at home at baseline -Continue home Singulair 10 mg qhs -Pulmicort 0.5 neb q12h -Methylprednisone 40 mg q8h as per Dr Vicente -Continuous oxygen as per [facility] [place] protocol on vent -Breathing treatments as above (7) Diabetes type 2, controlled Code(s): E11.9 - Type 2 diabetes mellitus without complications Status: Acute Plan: -Medium level sliding scale insulin * 4 units in the past 24 hrs -NPO due to intubation and sedation (8) Hyperlipidemia Code(s): E78.5 - Hyperlipidemia, unspecified Status: Acute Plan: -Continue home atorvastatin (9) Hypertension Code(s): I10 - Essential (primary) hypertension Status: Acute Plan: -Mostly well-controlled -Continue home amlodipine 10 mg PO daily (10) Depression Code(s): F32.9 - Major depressive disorder, single episode, unspecified Status : Acute Plan: -Continue home Wellbutrin 150mg PO BID (11) Nutrition, metabolism, and development symptoms Code(s): R63.8 - Other symptoms and signs concerning food and fluid intake Status: Acute Plan: Fluids: 1/2 NS at 42 mls/hr as per ICU protocol Dietary: Vital High Protein 1.5 with target 50 mls/hr; will order bedside swallow if extubated today oand diet if pt passes Electrolytes: Monitor daily and replete as needed; on ICU electrolyte protocol. GI PPx: Protonix 40 mg IV q24h DVT prophylaxis: SCDs and Lovenox <Sana GARZAAz [facility] 12/27/17 10:10> - Assessment and Plan 72 YO AAF w/Hx COPD, CHF, DM intubated, sedated and on ventilator with encephalopathy 2/2 metabolic causes and hypercapnia <Sana GARZAAz 12/27/17 10:42> Discussed Condition With: Pt SDW Kareem Cast and Seble <Sana GARZAAz [facility] 12/27/17 10:42> - Attending Attestation The exam, history, and the medical decision-making described in the above note were completed with the assistance of the resident physician. I reviewed and agree with the findings presented. I attest that I had a [id number] encounter with the patient on the same day, and personally performed and documented my assessment and findings in the medical record. Patient seen with resident team and medical student this morning. 72 year old female who presented with right flank pain and developed severe hypercapnic hypoxemic respiratory failure on day two requiring intubation and mechanical ventilation. This morning she is on CPAP. She is awake and alert, and answering our questions. Later in the day, she was extubated and requesting to leave AMA. However, we were able to convince her to stay the night. She would be a very unsafe discharge at this time. 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: without laborer marine terminal use Diabetes mellitus complication status: without complication Qualified Code(s): E11.9 - Type 2 diabetes mellitus without complications <Danielito Cast - Last Filed: 12/27/17 22:03> (7) Diabetes type 2, controlled Qualifiers: Diabetes mellitus detention insulin use: without detention use Diabetes mellitus complication status: without complication Qualified Code(s): E11.9 - Type 2 diabetes mellitus without complications <Az Hood III - Last Filed: 12/27/17 10:10> (7) Diabetes type 2, controlled Qualifiers: Diabetes mellitus detention insulin use: without detention use Diabetes mellitus complication status: without complication Qualified Code(s): E11.9 - Type 2 diabetes mellitus without complications <Danielito Cast - Last Filed: 12/27/17 22:03> (7) Diabetes type 2, controlled Qualifiers: 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
--- NOTE | 2017-12-27 11:40 | XR ---
EXAM DATE: 12/27/2017 10:40 AM EDT AGE/SEX: 72 years / Female INDICATIONS: Short of breath. CLINICAL DATA: This is the patient's subsequent encounter. Patient reports that signs and symptoms h ave been present for 4 - 6 days and indicates a pain score of Nonresponsive. MEDICAL/SURGICAL HISTORY: Hypertension. Chronic obstructive pulmonary disease. Congestive heart failure. Asthma. Diabetes. None. COMPARISON: [facility] [place]ST 1V SINGLE AP, 12/27/2017. . FINDINGS: The cardiac silhouette is enlarged in transverse diameter. There is bilateral lower lobe atelectasis versus pneumonia. The findings are similar to the prior exam. CONCLUSION: Bilateral lower lobe atelectasis versus pneumonia. There has been no significant change when compared to the prior exam. Electronically signed by: Hansel Dillard MD 12/27/2017 10:43 AM EDT
--- NOTE | 2017-12-27 12:36 | P.PN ---
Subjective Interval history: She is extubated and on a N/C at 4 L. Confused and wants to go home. Good output. Physical Exam Vital signs: Vital Signs 12/26/17 15:44 12/26/17 16:00 12/26/17 20:00 Temperature 97.9 F 99 F Pulse Rate 90 91 H 97 H Respiratory Rate 18 18 18 Blood Pressure 132/91 H 134/94 H Pulse Oximetry 94 L 95 96 12/26/17 20:10 12/27/17 00:00 12/27/17 01:33 Temperature 98.8 F Pulse Rate 97 H 95 H 93 H Respiratory Rate 18 18 Blood Pressure 149/90 H Pulse Oximetry 96 95 96 12/27/17 04:00 12/27/17 04:21 12/27/17 07:39 Temperature 99.3 F Pulse Rate 89 86 88 Respiratory Rate 18 18 Blood Pressure 126/89 Pulse Oximetry 93 L 98 12/27/17 07:40 12/27/17 08:00 12/27/17 11:58 Temperature 98.8 F Pulse Rate 92 H Respiratory Rate 18 18 Blood Pressure 159/88 H Pulse Oximetry 97 95 98 Intake & Output 12/26/17 12/27/17 12/27/17 18:59 06:59 18:59 Intake Total 662.5 / 662.5 2600 / 2600 Output Total 1500 / 1500 700 / 700 Balance -837.5 / -837.5 1900 / 1900 Weight 112.9 kg Intake: IV 662.5 / 662.5 2600 / 2600 Diprivan 1000 mg/100 ml Inj 1, 300 / 300 500 / 500 000 mg In 100 ml @ 5 MCG/KG/MIN 3.513 mls/hr IV.CONT TITRATE PRN Rx#:[id number] NS Inj 1,000 ML @ 75 mls/hr IV. 1000 / 1000 CONT .[id number] [facility] Rx#:[id number] 1/2 Normal Saline Inj 1,000 ML 1000 / 1000 @ 42 mls/hr IV.CONT .[id number] [facility] Rx#:[id number] Zosyn 2.25 GM Premix 50 ML @ 100 / 100 100 / 100 100 mls/hr IV.SIG Q6H [facility] Rx#: [id number] Vancomycin Inj 1,250 MG In NS 262.5 / 262.5 Inj 250 ML @ 250 mls/hr IV.SIG Q24H [facility] Rx#:[id number] Output: Urine Amount (Catheter) 1500 / 1500 700 / 700 Indwelling Urethral Catheter 1500 / 1500 700 / 700 Other: Date of Last Bowel Movement 12/26/17 12/26/17 12/27/17 # Bowel Movements 0 # Incontinent Bowel Movements 2 Narrative: GENERAL: Obese female lying in bed intubated, awake and alert, following commands, soft restraints still in place. EYES: Pupils equal and round and reactive. CARDIOVASCULAR: Irregular rate and rhythm. No murmur appreciated RESPIRATORY: No accessory muscle use. Bilateral wheeze heard. GASTROINTESTINAL: Abdomen soft, obese. Large ventral hernia present. Bowel sounds present. MUSCULOSKELETAL: Extremities without clubbing, cyanosis. Pedal edema bilaterally, nonpitting. NEUROLOGICAL: Awake, alert, oriented moves all limbs. No gross deficit. - Urinary Catheter Management Indwelling Urethral Catheter Cath placed during this visit: no Results - Labs CBC & Chem 7: 12/27/17 04:44 12/27/17 04:44 Laboratory Results - last 24 hr 12/26/17 12/26/17 12/26/17 12:39 13:55 16:59 WBC RBC Hgb Hct MCV MCH MCHC RDW Plt Count MPV Neut % (Auto) Lymph % (Auto) [place] % (Auto) Eos % (Auto) Baso % (Auto) Neut # (Auto) Lymph # (Auto) [place] # (Auto) Eos # (Auto) Baso # (Auto) WBC Differential Differential Comment Puncture Site Right radial Patient Temperature 98.6 O2 Saturation 91 ABG pH 7.50 H ABG pCO2 29 L ABG pO2 64 ABG HCO3 23 ABG O2 Content 15.9 ABG Base Excess -0.2 ABG Methemoglobin 1.9 Ketan Test Present Hemoglobin 12.5 Carboxyhemoglobin 0.9 O2 Delivery Device Ventilator Vent Setting Prvc/ac Inspired O2 40 Critical Value No Sodium Potassium Chloride Carbon Dioxide Anion Gap BUN Creatinine Estimated GFR POC Glucose 166 H 143 H Random Glucose Calcium Phosphorus Magnesium Total Bilirubin AST ALT Alkaline Phosphatase Total Protein Albumin 12/26/17 12/27/17 12/27/17 20:26 04:44 04:44 WBC 9.2 RBC 4.80 Hgb 14.1 Hct 44.0 MCV 91.6 MCH 29.3 MCHC 32.0 RDW 15.4 Plt Count 187 MPV 10.3 Neut % (Auto) 86.8 H Lymph % (Auto) 8.6 L [place] % (Auto) 4.4 Eos % (Auto) 0.0 Baso % (Auto) 0.2 Neut # (Auto) 7.9 H Lymph # (Auto) 0.8 L [place] # (Auto) 0.4 Eos # (Auto) 0.0 Baso # (Auto) 0.0 WBC Differential . Differential Comment Auto diff final Puncture Site Patient Temperature O2 Saturation ABG pH ABG pCO2 ABG pO2 ABG HCO3 ABG O2 Content ABG Base Excess ABG Methemoglobin Ketan Test Hemoglobin Carboxyhemoglobin O2 Delivery Device Vent Setting Inspired O2 Critical Value Sodium 137 Potassium 3.6 Chloride 102 Carbon Dioxide 20.0 L Anion Gap 15 BUN 24 H Creatinine 1.33 H Estimated GFR 47 L POC Glucose 179 H Random Glucose 185 H Calcium 8.7 Phosphorus 3.4 D Magnesium 2.2 Total Bilirubin 0.5 AST 20 ALT 31 Alkaline Phosphatase 91 Total Protein 7.9 Albumin 2.9 L 12/27/17 08:35 WBC RBC Hgb Hct MCV MCH MCHC RDW Plt Count MPV Neut % (Auto) Lymph % (Auto) [place] % (Auto) Eos % (Auto) Baso % (Auto) Neut # (Auto) Lymph # (Auto) [place] # (Auto) Eos # (Auto) Baso # (Auto) WBC Differential Differential Comment Puncture Site Patient Temperature O2 Saturation ABG pH ABG pCO2 ABG pO2 ABG HCO3 ABG O2 Content ABG Base Excess ABG Methemoglobin Ketan Test Hemoglobin Carboxyhemoglobin O2 Delivery Device Vent Setting Inspired O2 Critical Value Sodium Potassium Chloride Carbon Dioxide Anion Gap BUN Creatinine Estimated GFR POC Glucose 230 H Random Glucose Calcium Phosphorus Magnesium Total Bilirubin AST ALT Alkaline Phosphatase Total Protein Albumin Microbiology 12/24/17 16:59 Blood - Peripheral Aerobic Blood Culture - Preliminary No growth in 3 days 12/24/17 16:59 Blood - Peripheral Anaerobic Blood Culture - Preliminary No growth in 3 days 12/24/17 16:50 Blood - Peripheral Aerobic Blood Culture - Preliminary No growth in 3 days 12/24/17 16:50 Blood - Peripheral Anaerobic Blood Culture - Preliminary No growth in 3 days 12/24/17 23:20 Sputum - Endotracheal Gram Stain - Final 12/24/17 23:20 Sputum - Endotracheal Sputum Culture - Preliminary gram negative rods - Imaging Impressions Chest X-Ray 12/27/17 00:00 CONCLUSION: Bilateral lower lobe atelectasis versus pneumonia. There has been no significant change when compared to the prior exam. Chest X-Ray 12/27/17 06:00 CONCLUSION: No significant change. Assessment and Plan - Assessment (1) COPD (chronic obstructive pulmonary disease) Code(s): J44.9 - Chronic obstructive pulmonary disease, unspecified Status: Acute (2) Respiratory failure with hypercapnia Code(s): J96.92 - Respiratory failure, unspecified with hypercapnia Status: Acute (3) Asthma Code(s): J45.909 - Unspecified asthma, uncomplicated Status: Acute (4) SATYA (obstructive sleep apnea) Code(s): G47.33 - Obstructive sleep apnea (adult) (pediatric) Status: Acute (5) Diabetes mellitus Code(s): E11.9 - Type 2 diabetes mellitus without complications Status: Acute (6) Chest pain Code(s): R07.9 - Chest pain, unspecified Status: Acute (7) Elevated troponin Code(s): R74.8 - Abnormal levels of other serum enzymes Status: Acute (8) BRANDON (acute kidney injury) Code(s): N17.9 - Acute kidney failure, unspecified Status: Acute (9) CHF (congestive heart failure) Code(s): I50.9 - Heart failure, unspecified Status: Acute (10) Hyperkalemia Code(s): E87.5 - Hyperkalemia Status: Resolved (11) Hyperlipidemia Code(s): E78.5 - Hyperlipidemia, unspecified Status: Acute (12) COPD (chronic obstructive pulmonary disease) Code(s): J44.9 - Chronic obstructive pulmonary disease, unspecified Status: Acute - Plan 1. Will Wean O2 to 3 L. 2. Nebs qid , duoneb 3. Swallow test and PO Diet. 4. BIPAP at HS 12/5 CM with O2 5. Continue solumedrol 40 mg BID 6. Chest XRay , BMP in am 7. Continue Antibiotics and Diuretic
[2017-12-27] MEDS: Pantoprazole Inj 40 MG Vial IV.PUSH SCH (18:06)
[2017-12-27] MEDS: Montelukast 10 MG Tablet PO SCH (19:15)
[2017-12-27] MEDS: Carboxymethylcellulose 0.5% Opth Drops 15 ML Bottle EACH EYE SCH (21:02)
[2017-12-27] MEDS: Sodium Chloride 0.45 % Inj 1,000 ML IV.CONT SCH (21:05)
[2017-12-28] MEDS: Oral Hygiene Kit OROPHARYNG SCH ×4 (01:28→15:27)
[2017-12-28] MEDS: Piperacil/Tazo 2.25 GM Premix 50 ML IV.SIG SCH ×3 (02:27→13:48)
[2017-12-28 04:00] LABS: Baso % (Auto) 0.1 % (0.0-2.0); Hematocrit 39.1 % (35.0-46.0); Hemoglobin 12.5 gm/dL (11.6-15.3); Lymph # (Auto) 0.6 th/mm3 (1.0-4.8); Lymph % (Auto) 7.6 % (9.0-44.0); Mean Corpuscular HGB Conc 31.9 % (32.0-36.0); Mean Corpuscular Hemoglobin 28.9 pg (27.0-34.0); Mean Corpuscular Volume 90.6 fL (80.0-100.0); Mono # (Auto) 0.3 th/mm3 (0.0-0.9); Mono % (Auto) 3.5 % (0.0-8.0); Neut # (Auto) 7.4 th/mm3 (1.8-7.7); Neut % (Auto) 88.8 % (16.0-70.0); Platelet Count 183 th/mm3 (150-450); Red Blood Count 4.32 mil/mm3 (4.00-5.30); Red Cell Distribution Width 15.2 % (11.6-17.2); White Blood Count 8.3 th/mm3 (4.0-11.0)
[2017-12-28 04:32] LABS: Calcium 8.5 mg/dL (8.5-10.1); Carbon Dioxide 25.6 meq/L (21.0-32.0); Potassium 4.2 meq/L (3.5-5.1)
[2017-12-28] MEDS: Insulin NovoLOG Aspart Correctional Sugar Inj SQ SCH ×3 (08:02→17:12)
[2017-12-28] MEDS: Chlorhexidine 0.12% Oral Kit 15 ML UDC OROPHARYNG SCH (08:03)
[2017-12-28] MEDS: MethylPREDNISolone Sod Succinate Inj 40 MG/ML Vial IV.PUSH SCH (08:04)
[2017-12-28] MEDS: Carboxymethylcellulose 0.5% Opth Drops 15 ML Bottle EACH EYE SCH (08:04)
[2017-12-28] MEDS: Enoxaparin Inj 40 MG/0.4 ML Syringe SQ SCH (08:04)
[2017-12-28] MEDS: buPROPion 150 MG 12 HR Tablet PO SCH (08:04)
[2017-12-28] MEDS: amLODIPine 10 MG Tablet PO SCH (08:05)
--- NOTE | 2017-12-28 09:06 | P.PNCC ---
Subjective Subjective Remarks/Hospital Course: This is a 72-year-old AA female. Date of admission 12/23/2017. Date of consultation 12/24/2017. Past medical history includes likely chronic systolic heart failure, essential hypertension, hyperlipidemia, diabetes mellitus, elevated BMI, depression, cataracts and COPD. Patient was originally seen at [facility] on 12/22 with chest pain/abdominal pain. At that facility, reportedly had a CT pulmonary revealed no pulmonary embolus and. She was sent home on hydrocodone/acetaminophen. This made her drowsy. She presented to [facility] on 12/23. Essentially, patient received a CT of the abdomen pelvis which revealed a gallstone, bilateral nonobstructing nephrolithiasis colonic diverticulosis and ventral hernia along with a cyst in the right kidney. Patient was receiving hydromorphone for pain management. Patient rapid response team today due to altered mental status. ABG revealed significant CO2 retention. Attempted BiPAP for approximately an hour with minimal improvement of mentation and CO2. Decision was made to emergently intubate. Chest x-ray revealed a right lower lobe infiltrate. Will be started on empiric antibiotics. Stat laboratories including likely, troponin pending. Nuclear medicine hepatobiliary scan pending. Repeat CT abdomen/pelvis pending 12/25: Remains intubated sedated critically ill encephalopathy. CT of the chest shows bibasilar consolidation, also large 3.4 and a 3.9 cm right kidney mass suspicious for renal cell carcinoma. A urology consult is pending at this time. On empiric antibiotics for pneumonia sputum and blood cultures are pending at this time. Patient gets agitated on sedation lightening 12/26: Afebrile. Remains on propofol drip at 30 mcg/kg/min. Will attempt spontaneous breathing trials today. If not tube feeds will be initiated see orders. A.m. laboratories pending 12/27: Afebrile. Currently on CPAP trial 03/17 and 40%. Received 1 dose of bumetanide 1 mg 1 now. Arousable and follows commands. Subjective: 12/28: Extubated yesterday and currently on 3 L nasal cannula. Past swallow evaluation. Less confused today. Objective Vital Signs / I&O: Vital Signs 12/27/17 11:58 12/27/17 12:00 12/27/17 15:58 Temperature 99 F Pulse Rate 118 H 92 H Respiratory Rate 24 18 Blood Pressure 121/90 Pulse Oximetry 98 96 12/27/17 16:00 12/27/17 19:44 12/27/17 20:00 Temperature 98.2 F 98.4 F Pulse Rate 92 H 92 H 92 H Respiratory Rate 24 20 24 Blood Pressure 115/72 115/72 Pulse Oximetry 98 97 98 12/27/17 23:17 12/27/17 23:31 12/27/17 23:33 Temperature 98.2 F Pulse Rate 88 84 85 Respiratory Rate 20 16 Blood Pressure 97/52 L Pulse Oximetry 12/28/17 03:44 12/28/17 04:00 12/28/17 08:34 Temperature 98.1 F Pulse Rate 87 94 H 89 Respiratory Rate 20 32 H 17 Blood Pressure 109/74 Pulse Oximetry 94 L 95 Intake & Output 12/27/17 12/28/17 12/28/17 18:59 06:59 18:59 Intake Total 450 / 450 1340 / 1340 Output Total 1350 / 1350 950 / 950 Balance -900 / -900 390 / 390 Weight 113.9 kg Intake: IV 100 / 100 1100 / 1100 1/2 Normal Saline Inj 1,000 ML 1000 / 1000 @ 42 mls/hr IV.CONT .[id number] [facility] Rx#:[id number] Zosyn 2.25 GM Premix 50 ML @ 100 / 100 100 / 100 100 mls/hr IV.SIG Q6H [facility] Rx#: [id number] Oral 350 / 350 240 / 240 Output: Urine Amount (Catheter) 1350 / 1350 950 / 950 Indwelling Urethral Catheter 1350 / 1350 950 / 950 Other: Date of Last Bowel Movement 12/27/17 12/28/17 # Incontinent Bowel Movements 1 1 Result Diagrams: 12/28/17 02:55 12/28/17 02:55 Other Results: Microbiology 12/24/17 23:20 Sputum - Endotracheal Gram Stain - Final 12/24/17 23:20 Sputum - Endotracheal Sputum Culture - Preliminary gram negative rods 12/24/17 16:59 Blood - Peripheral Aerobic Blood Culture - Preliminary No growth in 3 days 12/24/17 16:59 Blood - Peripheral Anaerobic Blood Culture - Preliminary No growth in 3 days 12/24/17 16:50 Blood - Peripheral Aerobic Blood Culture - Preliminary No growth in 3 days 12/24/17 16:50 Blood - Peripheral Anaerobic Blood Culture - Preliminary No growth in 3 days Imaging: Abdomen/Pelvis CT 12/23/17 00:00 CONCLUSION: 1. Bibasilar consolidating airspace disease within the lower lobes. 2. 2.9 cm calcified gallstone without evidence of biliary obstructive disease or acute inflammation. 3. Multiple bilateral renal calculi without evidence of hydronephrosis. 4. Uncomplicated colonic diverticulosis. 5. Large ventral hernia containing both small and large intestinal loops. 6. Status post hysterectomy. Chest X-Ray 12/23/17 05:54 CONCLUSION: 1. Cardiomegaly with mild positive fluid balance. 2. Left lower lobe airspace disease and likely trace left pleural effusion. Gallbladder Ultrasound 12/23/17 07:09 CONCLUSION: 1. Shadowing from the gallbladder most characteristic of a large calcified gallstone. 2. Hyperechoic heterogeneous hepatic echotexture characteristic of hepatocellular disease. 3. No evidence of biliary obstruction. Abdomen X-Ray 12/24/17 00:00 CONCLUSION: Negative examination. No discrete calculi. Chest X-Ray 12/24/17 00:00 CONCLUSION: Tip of endotracheal tube 1 cm from the shannan. Unchanged bilateral infiltrates. Chest X-Ray 12/24/17 10:30 CONCLUSION: Bilateral parenchymal consolidation. Chest X-Ray 12/24/17 15:44 CONCLUSION: Unchanged cardiomegaly with pulmonary vascular engorgement and bilateral pulmonary infiltrates. Pulmonary edema suspected. Abdomen/Pelvis CT 12/25/17 00:00 CONCLUSION: 1. 8 mm renal calculus in the central right renal pelvis noted on 12/23/2017 CT exam is no longer visualized and may have passed. No hydronephrosis. 2. Additional ill-defined bilateral medullary calcifications are likely obscured by contrast in today's exam. 3. 3.4 x 3.9 cm enhancing solid mass in the anterior inferior pole of the right kidney concerning for renal cell carcinoma until proven otherwise. 4. Prominent colonic diverticulosis without evidence for diverticulitis. 5. Large ventral abdominal hernia containing portions of normal-appearing large and small bowel. No evidence for bowel obstruction. 6. Cholelithiasis. 7. Progressive bibasilar airspace consolidation with new trace right pleural effusion. Although findings may reflect atelectasis, consider aspiration in the appropriate clinical setting. 8. 2.8 cm left adrenal adenoma. Subcentimeter right adrenal mass with indeterminate density. This can be further characterized with adrenal mass CT/ MRI exam as clinically appropriate on an outpatient basis. 9. Additional ancillary findings, as above. Chest X-Ray 12/25/17 00:00 CONCLUSION: Unchanged exam. Radiographic pattern suggesting pulmonary edema. Chest X-Ray 12/26/17 06:00 CONCLUSION: No significant change Chest X-Ray 12/27/17 00:00 CONCLUSION: Bilateral lower lobe atelectasis versus pneumonia. There has been no significant change when compared to the prior exam. Chest X-Ray 12/27/17 06:00 CONCLUSION: No significant change. Objective Remarks: GENERAL: 72 yo AA female currently is a cannula in no acute distress SKIN: Warm and dry. No rash HEAD: Atraumatic. Normocephalic. EYES: Pupils equal and round. No scleral icterus. No injection or drainage. ENT: No nasal bleeding or discharge. Mucous membranes pink and moist. NECK: Trachea midline. No JVD. CARDIOVASCULAR: Regular rate and rhythm. S1, S2 no S4. Without murmur RESPIRATORY: No accessory muscle use. Clear to auscultation. Breath sounds equal bilaterally. GASTROINTESTINAL: Abdomen obese non-tender, with hypoactive bowel sounds appreciated MUSCULOSKELETAL: Extremities trace nonpitting bilateral lower extremity edema. No obvious deformities. NEUROLOGICAL: Cranial nerves II through XII grossly intact. Strength is equal symmetric. Normal sensation. Assessment and Plan - Assessment and Plan Plan: Neuro/Psych: Acute encephalopathy secondary to metabolic causes and hypercapnia Depressive disorder NOS History of cataracts Currently on bupropion 150 mg twice daily/home medication Continue pramipexole 0.25 mg at night for sleep related restless leg syndrome Acetaminophen 650 p.o. every 6 hours as needed fever Holding meloxicam. Discontinue ketorolac CV: Congestive heart failure systolic unknown if chronic or acute echocardiogram completed results pending History of essential hypertension Hyperlipidemia Elevated troponin 0.15 likely demand ischemia type II Home medications include amlodipine 10 mg daily for hypertension. Home medications include aspirin 81 mg daily. Home medication is simvastatin. Currently on atorvastatin 10 mg daily for dyslipidemia. Continue 2D echocardiogram LVEF moderately reduced with an estimated ejection fraction in the range of 40-45%. Normal left ventricular size. Wall thickness is measured at the upper limits of normal. No regional wall motion abnormalities are present Currently on budesonide 1 mg intravenous twice daily. 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 No signs of inflammation. Ultrasound of gallbladder revealed normal common bile duct. Large stone without obstruction. See above No suspicion of acute cholecystitis, cancel HIDA scan Currently Glucerna 1.5 goal 55 cc an hour. Nutrition recommends vital 1.5 at 50 cc an hour Pantoprazole for GI prophylaxis Docusate sodium/senna 1 tablet twice daily for bowel regimen : Bilateral nephrolithiasis with nonobstructing calculi Evaluated by urology. KUB revealed no bladder stone. Endo: Diabetes mellitus Sliding scale insulin aspart insulin to maintain euglycemia TSH was 0.757 on admission Renal: Acute kidney injury CT abdomen/pelvis revealed a enhancement of the right lower kidney possibly cancerous. 3.4 x 3.9 cm follow-up with Dr. Larry as an outpatient Creatinine currently 1.3, Monitor urine output Accurate i's and O's Avoid nephrotoxic medication Heme: Monitor CBC daily. Follow trends. No indication for transfusion of blood products at this time ID: Bibasilar pneumonia -gram-negative devin sputum Blood cultures 2 no growth Sputum with gram-negative rods influenza a and B ordered Negative UA on admission Continue piperacillin/tazobactam, doxycycline day 5 Discontinue vancomycin FEN: Replace electrolytes as clinically indicated Access -Utilize peripheral IV. Central line if indicated Prophylaxis -GI -pantoprazole -DVT - SCD/enoxaparin Level 2 follow-up. Stable from critical care medicine standpoint. We will sign off to [facility].
--- NOTE | 2017-12-28 11:53 | P.PNFP ---
Subjective Interval history: Patient was sitting up in a chair this morning. She states that she feels very well, she has no pain. She feels like she has lost weight and is happy that her legs are no longer swollen. She has been able to eat without any issues. She is oriented to person, place, and time. The previous day int he afternoon, she was somewhat confused and insistent on leaving the hospital when seen by the family medicine product marketing intern, but later after discussion with her son, she changed her mind and stated that she would stay for one more day. She would still like to go home as soon as possible, but is not as insistent as before. She states that she has home health PT/OT/nursing and multiple people to assist her if needed. Notably, the pt was successfully extubated yesterday. We discussed transferring her from the ICU to a medical/surgical room today, to which she was in agreement. <Mayda Guzman U - 12/28/17 14:38> Results - Labs Result diagrams: 12/28/17 02:55 12/28/17 02:55 <Danielito Cast L - 12/28/17 15:16> Abnormal lab results 12/27/17 12/27/17 12/28/17 Range/Units 18:05 20:22 02:55 MCHC 31.9 L (32.0-36.0) % Neut % (Auto) 88.8 H (16.0-70.0) % Lymph % (Auto) 7.6 L (9.0-44.0) % Lymph # (Auto) 0.6 L (1.0-4.8) th/mm3 BUN (7-18) mg/dL Creatinine (0.50-1.00) mg/dL Estimated GFR (>89) mL/min POC Glucose 168 H 163 H (68-110) mg/dl Random Glucose (74-106) mg/dL 12/28/17 12/28/17 12/28/17 Range/Units 02:55 07:44 11:46 MCHC (32.0-36.0) % Neut % (Auto) (16.0-70.0) % Lymph % (Auto) (9.0-44.0) % Lymph # (Auto) (1.0-4.8) th/mm3 BUN 33 H (7-18) mg/dL Creatinine 1.37 H (0.50-1.00) mg/dL Estimated GFR 46 L (>89) mL/min POC Glucose 156 H 195 H (68-110) mg/dl Random Glucose 187 H (74-106) mg/dL Short CBC 12/28/17 Range/Units 02:55 WBC 8.3 (4.0-11.0) th/mm3 Hgb 12.5 (11.6-15.3) gm/dL Hct 39.1 (35.0-46.0) % Plt Count 183 (150-450) th/mm3 BMP 12/28/17 02:55 Sodium 141 Potassium 4.2 Chloride 106 Carbon Dioxide 25.6 BUN 33 H Creatinine 1.37 H Calcium 8.5 <Young,Danielito L - 12/28/17 15:16> Abnormal lab results 12/27/17 12/27/17 12/27/17 Range/Units 12:36 18:05 20:22 MCHC (32.0-36.0) % Neut % (Auto) (16.0-70.0) % Lymph % (Auto) (9.0-44.0) % Lymph # (Auto) (1.0-4.8) th/mm3 BUN (7-18) mg/dL Creatinine (0.50-1.00) mg/dL Estimated GFR (>89) mL/min POC Glucose 226 H 168 H 163 H (68-110) mg/dl Random Glucose (74-106) mg/dL 12/28/17 12/28/17 12/28/17 Range/Units 02:55 02:55 07:44 MCHC 31.9 L (32.0-36.0) % Neut % (Auto) 88.8 H (16.0-70.0) % Lymph % (Auto) 7.6 L (9.0-44.0) % Lymph # (Auto) 0.6 L (1.0-4.8) th/mm3 BUN 33 H (7-18) mg/dL Creatinine 1.37 H (0.50-1.00) mg/dL Estimated GFR 46 L (>89) mL/min POC Glucose 156 H (68-110) mg/dl Random Glucose 187 H (74-106) mg/dL 12/28/17 Range/Units 11:46 MCHC (32.0-36.0) % Neut % (Auto) (16.0-70.0) % Lymph % (Auto) (9.0-44.0) % Lymph # (Auto) (1.0-4.8) th/mm3 BUN (7-18) mg/dL Creatinine (0.50-1.00) mg/dL Estimated GFR (>89) mL/min POC Glucose 195 H (68-110) mg/dl Random Glucose (74-106) mg/dL Short CBC 12/28/17 Range/Units 02:55 WBC 8.3 (4.0-11.0) th/mm3 Hgb 12.5 (11.6-15.3) gm/dL Hct 39.1 (35.0-46.0) % Plt Count 183 (150-450) th/mm3 BMP 12/28/17 02:55 Sodium 141 Potassium 4.2 Chloride 106 Carbon Dioxide 25.6 BUN 33 H Creatinine 1.37 H Calcium 8.5 <Eko,Mayda U - 12/28/17 11:53> Physical Exam Vital signs: Vital Signs 12/27/17 15:58 12/27/17 16:00 12/27/17 19:44 Temperature 98.2 F Pulse Rate 92 H 92 H 92 H Respiratory Rate 18 24 20 Blood Pressure 115/72 Pulse Oximetry 98 97 12/27/17 20:00 12/27/17 23:17 12/27/17 23:31 Temperature 98.4 F Pulse Rate 92 H 88 84 Respiratory Rate 24 20 Blood Pressure 115/72 Pulse Oximetry 98 12/27/17 23:33 12/28/17 03:44 12/28/17 04:00 Temperature 98.2 F 98.1 F Pulse Rate 85 87 94 H Respiratory Rate 16 20 32 H Blood Pressure 97/52 L 109/74 Pulse Oximetry 94 L 12/28/17 05:00 12/28/17 06:00 12/28/17 06:01 Temperature Pulse Rate 92 H 90 89 Respiratory Rate 31 H 29 H 28 H Blood Pressure 122/77 116/62 Pulse Oximetry 92 L 93 L 95 12/28/17 07:01 12/28/17 08:00 12/28/17 08:01 Temperature 98.9 F Pulse Rate 91 H 88 87 Respiratory Rate 30 H 43 H 32 H Blood Pressure 108/79 100/68 100/68 Pulse Oximetry 95 94 L 95 12/28/17 08:34 12/28/17 09:00 12/28/17 10:00 Temperature Pulse Rate 89 94 H 99 H Respiratory Rate 17 42 H 36 H Blood Pressure 114/80 Pulse Oximetry 95 93 L 89 L 12/28/17 10:02 12/28/17 11:00 12/28/17 11:45 Temperature Pulse Rate 97 H 94 H 100 H Respiratory Rate 35 H 32 H 17 Blood Pressure 101/76 111/57 L Pulse Oximetry 91 L 92 L 12/28/17 12:00 Temperature 98.6 F Pulse Rate 99 H Respiratory Rate 33 H Blood Pressure 161/93 H Pulse Oximetry 91 L Intake & Output 12/27/17 12/28/17 12/28/17 18:59 06:59 18:59 Intake Total 450 / 450 1340 / 1340 50 / 50 Output Total 1350 / 1350 950 / 950 Balance -900 / -900 390 / 390 50 / 50 Weight 113.9 kg Intake: IV 100 / 100 1100 / 1100 50 / 50 1/2 Normal Saline Inj 1,000 ML 1000 / 1000 @ 42 mls/hr IV.CONT .[id number] [facility] Rx#:[id number] Zosyn 2.25 GM Premix 50 ML @ 100 / 100 100 / 100 50 / 50 100 mls/hr IV.SIG Q6H [facility] Rx#: [id number] Oral 350 / 350 240 / 240 Output: Urine Amount (Catheter) 1350 / 1350 950 / 950 Indwelling Urethral Catheter 1350 / 1350 950 / 950 Other: Date of Last Bowel Movement 12/27/17 12/28/17 12/28/17 # Incontinent Bowel Movements 1 1 <Danielito Cast L - 12/28/17 15:16> Vital Signs 12/27/17 11:58 12/27/17 12:00 12/27/17 15:58 Temperature 99 F Pulse Rate 118 H 92 H Respiratory Rate 24 18 Blood Pressure 121/90 Pulse Oximetry 98 96 12/27/17 16:00 12/27/17 19:44 12/27/17 20:00 Temperature 98.2 F 98.4 F Pulse Rate 92 H 92 H 92 H Respiratory Rate 24 20 24 Blood Pressure 115/72 115/72 Pulse Oximetry 98 97 98 12/27/17 23:17 12/27/17 23:31 12/27/17 23:33 Temperature 98.2 F Pulse Rate 88 84 85 Respiratory Rate 20 16 Blood Pressure 97/52 L Pulse Oximetry 12/28/17 03:44 12/28/17 04:00 12/28/17 05:00 Temperature 98.1 F Pulse Rate 87 94 H 92 H Respiratory Rate 20 32 H 31 H Blood Pressure 109/74 122/77 Pulse Oximetry 94 L 92 L 12/28/17 06:00 12/28/17 06:01 12/28/17 07:01 Temperature Pulse Rate 90 89 91 H Respiratory Rate 29 H 28 H 30 H Blood Pressure 116/62 108/79 Pulse Oximetry 93 L 95 95 12/28/17 08:00 12/28/17 08:01 12/28/17 08:34 Temperature 98.9 F Pulse Rate 88 87 89 Respiratory Rate 43 H 32 H 17 Blood Pressure 100/68 100/68 Pulse Oximetry 94 L 95 95 12/28/17 09:00 12/28/17 11:45 Temperature Pulse Rate 94 H 100 H Respiratory Rate 42 H 17 Blood Pressure 114/80 Pulse Oximetry 93 L Intake & Output 12/27/17 12/28/17 12/28/17 18:59 06:59 18:59 Intake Total 450 / 450 1340 / 1340 50 / 50 Output Total 1350 / 1350 950 / 950 Balance -900 / -900 390 / 390 50 / 50 Weight 113.9 kg Intake: IV 100 / 100 1100 / 1100 50 / 50 1/2 Normal Saline Inj 1,000 ML 1000 / 1000 @ 42 mls/hr IV.CONT .[id number] [facility] Rx#:[id number] Zosyn 2.25 GM Premix 50 ML @ 100 / 100 100 / 100 50 / 50 100 mls/hr IV.SIG Q6H [facility] Rx#: [id number] Oral 350 / 350 240 / 240 Output: Urine Amount (Catheter) 1350 / 1350 950 / 950 Indwelling Urethral Catheter 1350 / 1350 950 / 950 Other: Date of Last Bowel Movement 12/27/17 12/28/17 12/28/17 # Incontinent Bowel Movements 1 1 <Eko,Mayda U - 12/28/17 11:53> Narrative: Gen: Patient sitting up in a chair, nasal canula set to 2L; pt in NAD Skin: Warm and dry CV: Regular rate and irregular rhythm Resp: CTAB, unlabored breathing Abd: Normoactive bowel sounds, NTTP Ext: No cyanosis or edema, calves nontender to palpation Psych: Pleasant affect <Mayda Guzman U - 12/28/17 14:00> - Urinary Catheter Management Indwelling Urethral Catheter Cath placed during this visit: no <Danielito Cast - 12/28/17 15:16> no <Mayda Guzman 12/28/17 14:38> Urethral indwelling: Yes <Mayda Guzman 12/28/17 14:36> Reason for continuing: Decision to DC catheter <Mayda Guzman 12/28/17 14:36 > Assessment and Plan - Assessment (1) Pneumonia Code(s): J18.9 - Pneumonia, unspecified organism Status: Acute (2) CHF (congestive heart failure) Code(s): I50.9 - Heart failure, unspecified Status: Acute (3) BRANDON (acute kidney injury) Code(s): N17.9 - Acute kidney failure, unspecified Status: Acute (4) COPD (chronic obstructive pulmonary disease) Code(s): J44.9 - Chronic obstructive pulmonary disease, unspecified Status: Acute (5) Diabetes type 2, controlled Code(s): E11.9 - Type 2 diabetes mellitus without complications Status: Acute (6) Hyperlipidemia Code(s): E78.5 - Hyperlipidemia, unspecified Status: Acute (7) Hypertension Code(s): I10 - Essential (primary) hypertension Status: Acute (8) Depression Code(s): F32.9 - Major depressive disorder, single episode, unspecified Status : Acute (9) Nutrition, metabolism, and development symptoms Code(s): R63.8 - Other symptoms and signs concerning food and fluid intake Status: Acute <Danielito Cast - 12/28/17 15:16> (1) Pneumonia Code(s): J18.9 - Pneumonia, unspecified organism Status: Acute Plan: -Much improved clinically, infiltrates still present on cxr -Pulmonology consulted--Dr Vicente saw her yesterday * Appreciate recs -Continue Zosyn 2.25 mg IV q6h, doxycycline 100 mg PO q12h for HCAP -Sputum cx with Proteus mirabilis and S. aureus -Methylprednisolone 40 mg q8h -Pulmicort nebulizer every 12 hours glen -Duonebs q4h scheduled -Albuterol neb q2h PRN -Blood culture NGTD4 days (2) CHF (congestive heart failure) Code(s): I50.9 - Heart failure, unspecified Status: Acute Plan: -Patient's weight down slightly less than 7 kg from admission -Broad-spectrum antibiotics as above -Bumex resumed on 12/27 at 1mg IV push BID -Negative fluid balance with good urine output -Continue daily weights -Discontinue Hawley History: -Echo with reduced LV systolic function and EF 40-45%, normal LV size, wall thickness upper limit normal, no wall abnormalities; RV not well visualized; normal left and right atria. -CXR 12/24 showing cardiomegaly with pulmonary vascular engorgement and bilateral pulmonary infiltrates with pulm edema suspected -BNP 236 -> 362 -Acetazolamide 250 mg IV once 12/24 5PM (3) BRANDON (acute kidney injury) Code(s): N17.9 - Acute kidney failure, unspecified Status: Acute Plan: -Creatinine mildly elevated at 1.17 on admission, 1.37 today. Unknown baseline. -Gentle IV fluids half-normal saline at 42 mls/hr due to patient's congestive heart failure -Could possibly be chronic kidney disease in the setting of diabetes -Avoid nephrotoxic agents -Repeat BMP in a.m. (4) COPD (chronic obstructive pulmonary disease) Code(s): J44.9 - Chronic obstructive pulmonary disease, unspecified Status: Acute Plan: -On 2 L of oxygen at home at baseline -Continue home Singulair 10 mg qhs -Pulmicort 0.5 neb q12h -Methylprednisone 40 mg q12h as per Dr Vicente -Breathing treatments as above (5) Diabetes type 2, controlled Code(s): E11.9 - Type 2 diabetes mellitus without complications Status: Acute Plan: -Medium level sliding scale insulin * Required 14 units from 8am on the 18th to 8am this morning -Not on insulin at home -Continue SSI now that she is eating to have a better idea of needs -On diabetic diet (6) Hyperlipidemia Code(s): E78.5 - Hyperlipidemia, unspecified Status: Acute Plan: -Continue home atorvastatin (7) Hypertension Code(s): I10 - Essential (primary) hypertension Status: Acute Plan: -Mostly well-controlled -Continue home amlodipine 10 mg PO daily (8) Depression Code(s): F32.9 - Major depressive disorder, single episode, unspecified Status : Acute Plan: -Continue home Wellbutrin 150mg PO BID (9) Nutrition, metabolism, and development symptoms Code(s): R63.8 - Other symptoms and signs concerning food and fluid intake Status: Acute Plan: Fluids: 1/2 NS at 42 mls/hr Dietary: Diabetic diet Electrolytes: Monitor daily and replete as needed GI PPx: Protonix 40 mg IV q24h DVT prophylaxis: SCDs and Lovenox <Mayda Guzman - 12/28/17 14:36> - Assessment and Plan Discussed Condition With: Pt, pt's nurse, medicine team, attending Dr. Cast <Mayda Guzman [facility] 12/28/17 14:36> Discharge Planning: Pt is doing much better, afebrile, and back to baseline O2. She has home health PT/OT/nursing and once she is cleared by PT, may be able to return home vs acute rehab with oral antibiotics int he next 1-2 days. <Mayda Guzman - 12/28/17 14:36> - Attending Attestation The exam, history, and the medical decision-making described in the above note were completed with the assistance of the resident physician. I reviewed and agree with the findings presented. I attest that I had a [id number] encounter with the patient on the same day, and personally performed and documented my assessment and findings in the medical record. Patient seen with resident team and medical student this morning. She was extubated yesterday afternoon. She is doing well this morning, sitting up in a chair. Reports no pain. No difficulty breathing. On 2L nasal cannula. Being treated for pneumonia with Zosyn and doxycycline. Sputum with rangel sensitive staph and proteus mirabilis. Toggle Press Folder And Feeder on board, appreciate recommendations. Continuing with breathing treatments. Monitoring fluid status, fluid overload significantly improved. Will transfer to medical floor today. <Danielito Cast L - 12/28/17 15:16> <Mayda Guzman - Last Filed: 12/28/17 14:36> (5) Diabetes type 2, controlled Qualifiers: Diabetes mellitus longterm insulin use: without longterm use Diabetes mellitus complication status: without complication Qualified Code(s): E11.9 - Type 2 diabetes mellitus without complications <Danielito Cast Last Filed: 12/28/17 15:16> (5) Diabetes type 2, controlled Qualifiers: Diabetes mellitus termite helper insulin use: without longterm use Diabetes mellitus complication status: without complication Qualified Code(s): E11.9 - Type 2 diabetes mellitus without complications <Mayda Guzman [facility] Last Filed: 12/28/17 14:36> (5) Diabetes type 2, controlled Qualifiers: Diabetes mellitus longterm insulin use: without longterm use Diabetes mellitus complication status: without complication Qualified Code(s): E11.9 - Type 2 diabetes mellitus without complications <Danielito Cast Last Filed: 12/28/17 15:16> (5) Diabetes type 2, controlled Qualifiers: Diabetes mellitus longterm insulin use: without longterm use Diabetes mellitus complication status: without complication Qualified Code(s): E11.9 - Type 2 diabetes mellitus without complications
[2017-12-28] MEDS: Pantoprazole Inj 40 MG Vial IV.PUSH SCH (17:11)
[2017-12-28] MEDS: Montelukast 10 MG Tablet PO SCH (17:18)
--- NOTE | 2017-12-28 17:32 | P.PN ---
Subjective Interval history: She is better. No chest pains and now on o2 3 L. Able to eat well. Physical Exam Vital signs: Vital Signs 12/27/17 19:44 12/27/17 20:00 12/27/17 23:17 Temperature 98.4 F Pulse Rate 92 H 92 H 88 Respiratory Rate 20 24 20 Blood Pressure 115/72 Pulse Oximetry 97 98 12/27/17 23:31 12/27/17 23:33 12/28/17 03:44 Temperature 98.2 F Pulse Rate 84 85 87 Respiratory Rate 16 20 Blood Pressure 97/52 L Pulse Oximetry 12/28/17 04:00 12/28/17 05:00 12/28/17 06:00 Temperature 98.1 F Pulse Rate 94 H 92 H 90 Respiratory Rate 32 H 31 H 29 H Blood Pressure 109/74 122/77 Pulse Oximetry 94 L 92 L 93 L 12/28/17 06:01 12/28/17 07:01 12/28/17 08:00 Temperature 98.9 F Pulse Rate 89 91 H 88 Respiratory Rate 28 H 30 H 43 H Blood Pressure 116/62 108/79 100/68 Pulse Oximetry 95 95 94 L 12/28/17 08:01 12/28/17 08:34 12/28/17 09:00 Temperature Pulse Rate 87 89 94 H Respiratory Rate 32 H 17 42 H Blood Pressure 100/68 114/80 Pulse Oximetry 95 95 93 L 12/28/17 10:00 12/28/17 10:02 12/28/17 11:00 Temperature Pulse Rate 99 H 97 H 94 H Respiratory Rate 36 H 35 H 32 H Blood Pressure 101/76 111/57 L Pulse Oximetry 89 L 91 L 92 L 12/28/17 11:45 12/28/17 12:00 12/28/17 13:15 Temperature 98.6 F Pulse Rate 100 H 99 H 100 H Respiratory Rate 17 33 H 29 H Blood Pressure 161/93 H 135/76 Pulse Oximetry 91 L 92 L 12/28/17 14:00 12/28/17 15:00 12/28/17 16:00 Temperature 97.9 F Pulse Rate 97 H 99 H 91 H Respiratory Rate 32 H 36 H 44 H Blood Pressure 121/68 126/81 147/92 H Pulse Oximetry 95 91 L 91 L 12/28/17 16:01 Temperature Pulse Rate 91 H Respiratory Rate 43 H Blood Pressure 147/92 H Pulse Oximetry 92 L Intake & Output 12/27/17 12/28/17 12/28/17 18:59 06:59 18:59 Intake Total 450 / 450 1340 / 1340 50 / 50 Output Total 1350 / 1350 950 / 950 Balance -900 / -900 390 / 390 50 / 50 Weight 113.9 kg Intake: IV 100 / 100 1100 / 1100 50 / 50 1/2 Normal Saline Inj 1,000 ML 1000 / 1000 @ 42 mls/hr IV.CONT .[id number] [facility] Rx#:[id number] Zosyn 2.25 GM Premix 50 ML @ 100 / 100 100 / 100 50 / 50 100 mls/hr IV.SIG Q6H [facility] Rx#: [id number] Oral 350 / 350 240 / 240 Output: Urine Amount (Catheter) 1350 / 1350 950 / 950 Indwelling Urethral Catheter 1350 / 1350 950 / 950 Other: Date of Last Bowel Movement 12/27/17 12/28/17 12/28/17 # Incontinent Bowel Movements 1 1 Narrative: Gen: Obese elderly AA/A lady on nasal canula set to 2L; pt in NAD Skin: Warm and dry CV: irregular rhythm, S1 S2 Resp: Occ wheeze in upper chest Abd: Normoactive bowel sounds, No mass. Ext: No cyanosis or edema, Reflexes 1 + Psych: Pleasant affect - Urinary Catheter Management Indwelling Urethral Catheter Cath placed during this visit: yes, but has since been removed by the nurse Urethral indwelling: Yes Reason for continuing: Decision to DC catheter Removal date: 12/28/17 Removal time: 14:00 Results - Labs CBC & Chem 7: 12/28/17 02:55 12/28/17 02:55 Laboratory Results - last 24 hr 12/27/17 12/27/17 12/28/17 18:05 20:22 02:55 WBC 8.3 RBC 4.32 Hgb 12.5 Hct 39.1 MCV 90.6 MCH 28.9 MCHC 31.9 L RDW 15.2 Plt Count 183 MPV 10.0 Neut % (Auto) 88.8 H Lymph % (Auto) 7.6 L Antelope % (Auto) 3.5 Eos % (Auto) 0.0 Baso % (Auto) 0.1 Neut # (Auto) 7.4 Lymph # (Auto) 0.6 L [place]elope # (Auto) 0.3 Eos # (Auto) 0.0 Baso # (Auto) 0.0 WBC Differential . Differential Comment Auto diff final Sodium Potassium Chloride Carbon Dioxide Anion Gap BUN Creatinine Estimated GFR POC Glucose 168 H 163 H Random Glucose Calcium 12/28/17 12/28/17 12/28/17 02:55 07:44 11:46 WBC RBC Hgb Hct MCV MCH MCHC RDW Plt Count MPV Neut % (Auto) Lymph % (Auto) Antelope % (Auto) Eos % (Auto) Baso % (Auto) Neut # (Auto) Lymph # (Auto) Antelope # (Auto) Eos # (Auto) Baso # (Auto) WBC Differential Differential Comment Sodium 141 Potassium 4.2 Chloride 106 Carbon Dioxide 25.6 Anion Gap 9 BUN 33 H Creatinine 1.37 H Estimated GFR 46 L POC Glucose 156 H 195 H Random Glucose 187 H Calcium 8.5 12/28/17 17:01 WBC RBC Hgb Hct MCV MCH MCHC RDW Plt Count MPV Neut % (Auto) Lymph % (Auto) Antelope % (Auto) Eos % (Auto) Baso % (Auto) Neut # (Auto) Lymph # (Auto) Antelope # (Auto) Eos # (Auto) Baso # (Auto) WBC Differential Differential Comment Sodium Potassium Chloride Carbon Dioxide Anion Gap BUN Creatinine Estimated GFR POC Glucose 160 H Random Glucose Calcium Microbiology 12/24/17 23:20 Sputum - Endotracheal Gram Stain - Final 12/24/17 23:20 Sputum - Endotracheal Sputum Culture - Final Proteus mirabilis Staphylococcus aureus 12/24/17 16:59 Blood - Peripheral Aerobic Blood Culture - Preliminary No growth in 4 days 12/24/17 16:59 Blood - Peripheral Anaerobic Blood Culture - Preliminary No growth in 4 days 12/24/17 16:50 Blood - Peripheral Aerobic Blood Culture - Preliminary No growth in 4 days 12/24/17 16:50 Blood - Peripheral Anaerobic Blood Culture - Preliminary No growth in 4 days Assessment and Plan - Assessment (1) COPD (chronic obstructive pulmonary disease) Code(s): J44.9 - Chronic obstructive pulmonary disease, unspecified Status: Acute (2) Respiratory failure with hypercapnia Code(s): J96.92 - Respiratory failure, unspecified with hypercapnia Status: Acute (3) Asthma Code(s): J45.909 - Unspecified asthma, uncomplicated Status: Acute (4) SATYA (obstructive sleep apnea) Code(s): G47.33 - Obstructive sleep apnea (adult) (pediatric) Status: Acute (5) Diabetes mellitus Code(s): E11.9 - Type 2 diabetes mellitus without complications Status: Acute (6) Chest pain Code(s): R07.9 - Chest pain, unspecified Status: Acute (7) Elevated troponin Code(s): R74.8 - Abnormal levels of other serum enzymes Status: Resolved (8) BRANDON (acute kidney injury) Code(s): N17.9 - Acute kidney failure, unspecified Status: Acute (9) CHF (congestive heart failure) Code(s): I50.9 - Heart failure, unspecified Status: Acute (10) Hyperkalemia Code(s): E87.5 - Hyperkalemia Status: Resolved (11) Hyperlipidemia Code(s): E78.5 - Hyperlipidemia, unspecified Status: Acute (12) COPD (chronic obstructive pulmonary disease) Code(s): J44.9 - Chronic obstructive pulmonary disease, unspecified Status: Acute - Plan 1. Cont O2 2 L. 2. Nebs qid , duoneb 3. IS at bedside q2h 4. D/C BIPAP and Pt may use her own CPAP machine 5. D/C solumedrol 6.Add Prednisone 20 mg BID and taper 7. Continue Antibiotics and Diuretic
[2017-12-28] MEDS: Sodium Chloride 0.45 % Inj 1,000 ML IV.CONT SCH (19:34)
[2017-12-29] MEDS: Piperacil/Tazo 2.25 GM Premix 50 ML IV.SIG SCH ×4 (03:00→14:58)
[2017-12-29 03:48] LABS: Baso % (Auto) 0.2 % (0.0-2.0); Eos % (Auto) 0.1 % (0.0-4.0); Hematocrit 39.4 % (35.0-46.0); Hemoglobin 12.6 gm/dL (11.6-15.3); Lymph # (Auto) 1.5 th/mm3 (1.0-4.8); Lymph % (Auto) 16.4 % (9.0-44.0); Mean Corpuscular HGB Conc 32.1 % (32.0-36.0); Mean Corpuscular Volume 90.4 fL (80.0-100.0); Mean Platelet Volume 9.6 fL (7.0-11.0); Mono # (Auto) 0.8 th/mm3 (0.0-0.9); Mono % (Auto) 8.4 % (0.0-8.0); Neut # (Auto) 6.8 th/mm3 (1.8-7.7); Neut % (Auto) 74.9 % (16.0-70.0); Platelet Count 185 th/mm3 (150-450); Red Blood Count 4.36 mil/mm3 (4.00-5.30); Red Cell Distribution Width 14.9 % (11.6-17.2)
[2017-12-29 04:10] LABS: Calcium 8.2 mg/dL (8.5-10.1); Carbon Dioxide 27.5 meq/L (21.0-32.0); Potassium 3.8 meq/L (3.5-5.1)
[2017-12-29] MEDS: Chlorhexidine 0.12% Oral Kit 15 ML UDC OROPHARYNG SCH ×3 (05:15→19:58)
[2017-12-29] MEDS: predniSONE 20 MG Tablet PO SCH ×3 (05:19→20:03)
[2017-12-29] MEDS: Insulin NovoLOG Aspart Correctional Sugar Inj SQ SCH ×5 (05:20→20:14)
[2017-12-29] MEDS: Carboxymethylcellulose 0.5% Opth Drops 15 ML Bottle EACH EYE SCH ×3 (05:24→20:03)
[2017-12-29] MEDS: Oral Hygiene Kit OROPHARYNG SCH ×4 (05:25→23:44)
[2017-12-29] MEDS: buPROPion 150 MG 12 HR Tablet PO SCH ×3 (05:25→20:03)
[2017-12-29] MEDS: amLODIPine 10 MG Tablet PO SCH (08:06)
[2017-12-29] MEDS: Enoxaparin Inj 40 MG/0.4 ML Syringe SQ SCH (08:07)
--- NOTE | 2017-12-29 11:03 | P.PNFP ---
Subjective Interval history: Patient is sitting up in bed this morning. She is in no distress. She reports the right flank pain has resolved. She reports no shortness of breath. She is on 2L by nasal cannula, which she is on at home as well. She has no chest pain. No abdominal pain, nausea, vomiting, diarrhea. No lower extremity edema at this point. Results - Labs Result diagrams: 12/29/17 02:52 12/29/17 02:52 Abnormal lab results 12/28/17 12/28/17 12/28/17 Range/Units 11:46 17:01 21:03 Neut % (Auto) (16.0-70.0) % [place] % (Auto) (0.0-8.0) % BUN (7-18) mg/dL Creatinine (0.50-1.00) mg/dL Estimated GFR (>89) mL/min POC Glucose 195 H 160 H 135 H (68-110) mg/dl Random Glucose (74-106) mg/dL Calcium (8.5-10.1) mg/dL 12/29/17 12/29/17 12/29/17 Range/Units 02:52 02:52 07:38 Neut % (Auto) 74.9 H (16.0-70.0) % [place] % (Auto) 8.4 H (0.0-8.0) % BUN 38 H (7-18) mg/dL Creatinine 1.51 H (0.50-1.00) mg/dL Estimated GFR 41 L (>89) mL/min POC Glucose 126 H (68-110) mg/dl Random Glucose 119 H (74-106) mg/dL Calcium 8.2 L (8.5-10.1) mg/dL Short CBC 12/29/17 Range/Units 02:52 WBC 9.0 (4.0-11.0) th/mm3 Hgb 12.6 (11.6-15.3) gm/dL Hct 39.4 (35.0-46.0) % Plt Count 185 (150-450) th/mm3 [facility] 12/29/17 02:52 Sodium 144 Potassium 3.8 Chloride 107 Carbon Dioxide 27.5 BUN 38 H Creatinine 1.51 H Calcium 8.2 L Physical Exam Vital signs: Vital Signs 12/28/17 11:00 12/28/17 11:45 12/28/17 12:00 Temperature 98.6 F Pulse Rate 94 H 100 H 99 H Respiratory Rate 32 H 17 33 H Blood Pressure 111/57 L 161/93 H Pulse Oximetry 92 L 91 L 12/28/17 13:15 12/28/17 14:00 12/28/17 15:00 Temperature Pulse Rate 100 H 97 H 99 H Respiratory Rate 29 H 32 H 36 H Blood Pressure 135/76 121/68 126/81 Pulse Oximetry 92 L 95 91 L 12/28/17 16:00 12/28/17 16:01 12/28/17 17:00 Temperature 97.9 F Pulse Rate 91 H 91 H 95 H Respiratory Rate 44 H 43 H 0 L Blood Pressure 147/92 H 147/92 H 144/84 H Pulse Oximetry 91 L 92 L 94 L 12/28/17 18:00 12/28/17 19:00 12/28/17 20:00 Temperature 98.4 F Pulse Rate 92 H 86 105 H Respiratory Rate 98 H 68 H 44 H Blood Pressure 106/71 100/70 140/73 Pulse Oximetry 93 L 94 L 84 L 12/28/17 20:01 12/28/17 20:45 12/28/17 21:01 Temperature Pulse Rate 105 H 101 H 100 H Respiratory Rate 39 H 24 40 H Blood Pressure 154/107 H 140/73 Pulse Oximetry 83 L 95 94 L 12/28/17 22:00 12/28/17 23:04 12/29/17 00:00 Temperature 98.5 F Pulse Rate 94 H 90 88 Respiratory Rate 31 H 85 H 64 H Blood Pressure 126/69 102/76 129/73 Pulse Oximetry 88 L 94 L 93 L 12/29/17 01:00 12/29/17 02:00 12/29/17 03:00 Temperature Pulse Rate 87 86 83 Respiratory Rate 70 H 79 H 111 H Blood Pressure 117/77 108/68 107/77 Pulse Oximetry 93 L 93 L 92 L 12/29/17 04:00 12/29/17 05:00 12/29/17 06:00 Temperature 98.4 F Pulse Rate 87 87 85 Respiratory Rate 35 H 31 H 23 Blood Pressure 116/83 118/80 111/70 Pulse Oximetry 94 L 96 97 12/29/17 07:01 12/29/17 07:30 12/29/17 08:00 Temperature 97.9 F Pulse Rate 83 89 88 Respiratory Rate 36 H 20 20 Blood Pressure 118/81 111/79 Pulse Oximetry 96 94 L 90 L 12/29/17 08:01 12/29/17 09:01 Temperature Pulse Rate 90 103 H Respiratory Rate 56 H 46 H Blood Pressure 111/79 152/88 H Pulse Oximetry 93 L 82 L Intake & Output 12/28/17 12/29/17 12/29/17 18:59 06:59 18:59 Intake Total 530 / 530 650 / 650 560 / 560 Output Total 1999 900 / 900 Balance -1470 / -1470 -250 / -250 560 / 560 Weight 112.8 kg Intake: IV 50 / 50 150 / 150 560 / 560 1/2 Normal Saline Inj 1,000 ML 510 / 510 @ 42 mls/hr IV.CONT .[id number] [facility] Rx#:[id number] Zosyn 2.25 GM Premix 50 ML @ 50 / 50 150 / 150 50 / 50 100 mls/hr IV.SIG Q6H [facility] Rx#: [id number] Oral 480 / 480 150 / 150 Other 350 / 350 Output: Urine 1999 400 / 400 Urine/Stool Mix 500 / 500 Other: # Voids 0 # Incontinent Voids 1 Date of Last Bowel Movement 12/28/17 12/28/17 12/28/17 # Bowel Movements 0 1 # Incontinent Bowel Movements 2 Narrative: General: Sitting up in bed, no distress, in a good mood this morning Skin: No lesions noticed HEENT: Normocephalic, no nasal discharge Neck: Normal range of motion CV: RRR, no murmurs, rubs, or gallops, peripheral pulses intact, normal capillary refill Lungs: CTAB, no wheezing, rales, or rhonchi, no consolidations heard Abdomen: Soft, nontender, nondistended, normal bowel sounds Ext: No edema today, legs dry Neuro: Awake, alert, oriented to person, place, time, situation : Has female external catheter with clear urine drainage - Urinary Catheter Management Indwelling Urethral Catheter Cath placed during this visit: yes, but has since been removed by the nurse Urethral indwelling: Yes Reason for continuing: Decision to DC catheter Removal date: 12/28/17 Removal time: 14:00 Assessment and Plan - Assessment (1) Pneumonia Code(s): J18.9 - Pneumonia, unspecified organism Status: Acute Plan: Much improved clinically. Proteus and staph, rangel-sensitive detected. -Pulmonology consulted--Dr Vicente * Appreciate recs -Planning on transitioning from IV antibiotics to oral augmentin per pulmonology recommendation -Continue weaning steroids -Pulmicort scheduled, albuterol as needed. History: developed acute hypercapnic hypoxemic respiratory failure on day 2 of hospital stay, requiring intubation and mechanical ventilation. Now extubated and breathing well on her own, respiratory status is back to her baseline. Contributing factors include COPD, CHF with fluid overload, and possible pneumonia. (2) CHF (congestive heart failure) Code(s): I50.9 - Heart failure, unspecified Status: Acute Plan: -Patient's weight down, dry on exam -Bumex for diuresis, decrease dosage for increased creatinine and dry status on exam and I's/O's. - Continue to monitor I's/O's and daily weights - Continue CHF medications at discharge History: -Echo with reduced LV systolic function and EF 40-45%, normal LV size, wall thickness upper limit normal, no wall abnormalities; RV not well visualized; normal left and right atria. -CXR 12/24 showing cardiomegaly with pulmonary vascular engorgement and bilateral pulmonary infiltrates with pulm edema suspected -BNP elevated (3) COPD (chronic obstructive pulmonary disease) Code(s): J44.9 - Chronic obstructive pulmonary disease, unspecified Status: Acute Plan: On 2 L of oxygen at home at baseline -Pulmicort 0.5 neb q12h -DuoNebs, albuterol as needed -Continue tapering steroids (4) BRANDON (acute kidney injury) Code(s): N17.9 - Acute kidney failure, unspecified Status: Acute Plan: -Creatinine mildly elevated at 1.17 on admission, trended up today, likely secondary to diuresis. Will back off on diuresis, decrease Bumex from bid to once a day dosing. -Likely an element chronic kidney disease in the setting of diabetes -Avoid nephrotoxic agents (5) Diabetes type 2, controlled Code(s): E11.9 - Type 2 diabetes mellitus without complications Status: Acute Plan: -Medium level sliding scale insulin -Diabetic diet (6) Hyperlipidemia Code(s): E78.5 - Hyperlipidemia, unspecified Status: Acute Plan: -Continue home atorvastatin (7) Hypertension Code(s): I10 - Essential (primary) hypertension Status: Acute Plan: -Mostly well-controlled -Continue home amlodipine 10 mg PO daily (8) Depression Code(s): F32.9 - Major depressive disorder, single episode, unspecified Status : Acute Plan: -Continue home Wellbutrin 150mg PO BID (9) Nutrition, metabolism, and development symptoms Code(s): R63.8 - Other symptoms and signs concerning food and fluid intake Status: Acute Plan: Fluids: PO fluids, d/c IV fluids Dietary: Diabetic diet Electrolytes: Monitor daily and replace as needed GI PPx: Discontinue protonix DVT prophylaxis: SCDs and Lovenox - Assessment and Plan 72 YO AAF w/Hx COPD, CHF, DM intubated, sedated and on ventilator with encephalopathy 2/2 metabolic causes and hypercapnia Discussed Condition With: Seen and discussed with Dr. Hood and Robby Ríos, M4 Discharge Planning: Discussing with patient and with case management potential options. She is amenable to a senior care facility or going home with home health and continuing her physical therapy and occupational therapy at home. She has a strong support system at home per her report. No stairs in the house. She will need close follow up with a multidisciplinary team to continue to manage her chronic medical problems as an outpatient. (5) Diabetes type 2, controlled Qualifiers: Diabetes mellitus assisted insulin use: without adapted physical education specialist use Diabetes mellitus complication status: without complication Qualified Code(s): E11.9 - Type 2 diabetes mellitus without complications
[2017-12-29] MEDS ORDERED: Pharmacy Ordered Lab Info OTHER ONE (12:45)
--- NOTE | 2017-12-29 13:02 | P.PN ---
Subjective Interval history: Doing well and cough is less . No fever. On O2 3 L Physical Exam Vital signs: Vital Signs 12/28/17 13:15 12/28/17 14:00 12/28/17 15:00 Temperature Pulse Rate 100 H 97 H 99 H Respiratory Rate 29 H 32 H 36 H Blood Pressure 135/76 121/68 126/81 Pulse Oximetry 92 L 95 91 L 12/28/17 16:00 12/28/17 16:01 12/28/17 17:00 Temperature 97.9 F Pulse Rate 91 H 91 H 95 H Respiratory Rate 44 H 43 H 0 L Blood Pressure 147/92 H 147/92 H 144/84 H Pulse Oximetry 91 L 92 L 94 L 12/28/17 18:00 12/28/17 19:00 12/28/17 20:00 Temperature 98.4 F Pulse Rate 92 H 86 105 H Respiratory Rate 98 H 68 H 44 H Blood Pressure 106/71 100/70 140/73 Pulse Oximetry 93 L 94 L 84 L 12/28/17 20:01 12/28/17 20:45 12/28/17 21:01 Temperature Pulse Rate 105 H 101 H 100 H Respiratory Rate 39 H 24 40 H Blood Pressure 154/107 H 140/73 Pulse Oximetry 83 L 95 94 L 12/28/17 22:00 12/28/17 23:04 12/29/17 00:00 Temperature 98.5 F Pulse Rate 94 H 90 88 Respiratory Rate 31 H 85 H 64 H Blood Pressure 126/69 102/76 129/73 Pulse Oximetry 88 L 94 L 93 L 12/29/17 01:00 12/29/17 02:00 12/29/17 03:00 Temperature Pulse Rate 87 86 83 Respiratory Rate 70 H 79 H 111 H Blood Pressure 117/77 108/68 107/77 Pulse Oximetry 93 L 93 L 92 L 12/29/17 04:00 12/29/17 05:00 12/29/17 06:00 Temperature 98.4 F Pulse Rate 87 87 85 Respiratory Rate 35 H 31 H 23 Blood Pressure 116/83 118/80 111/70 Pulse Oximetry 94 L 96 97 12/29/17 07:01 12/29/17 07:30 12/29/17 08:00 Temperature 97.9 F Pulse Rate 83 89 88 Respiratory Rate 36 H 20 20 Blood Pressure 118/81 111/79 Pulse Oximetry 96 94 L 90 L 12/29/17 08:01 12/29/17 09:01 12/29/17 10:00 Temperature Pulse Rate 90 103 H 94 H Respiratory Rate 56 H 46 H 31 H Blood Pressure 111/79 152/88 H Pulse Oximetry 93 L 82 L 94 L 12/29/17 10:11 12/29/17 11:01 12/29/17 12:00 Temperature 97.8 F Pulse Rate 90 93 H 93 H Respiratory Rate 30 H 35 H 18 Blood Pressure 105/77 137/86 129/89 Pulse Oximetry 92 L 94 L 92 L Intake & Output 12/28/17 12/29/17 12/29/17 18:59 06:59 18:59 Intake Total 530 / 530 650 / 650 560 / 560 Output Total 1999 / 1999 900 / 900 Balance -1470 / -1470 -250 / -250 560 / 560 Weight 112.8 kg Intake: IV 50 / 50 150 / 150 560 / 560 1/2 Normal Saline Inj 1,000 ML 510 / 510 @ 42 mls/hr IV.CONT .[id number] [facility] Rx#:[id number] Zosyn 2.25 GM Premix 50 ML @ 50 / 50 150 / 150 50 / 50 100 mls/hr IV.SIG Q6H [facility] Rx#: [id number] Oral 480 / 480 150 / 150 Other 350 / 350 Output: Urine 1999 / 1999 400 / 400 Urine/Stool Mix 500 / 500 Other: # Voids 0 # Incontinent Voids 1 Date of Last Bowel Movement 12/28/17 12/28/17 12/28/17 # Bowel Movements 0 1 # Incontinent Bowel Movements 2 Narrative: General: Obese lady alert and no distress Skin: No lesions noticed HEENT: Normocephalic, no nasal discharge Neck: Normal range of motion No JVD CV: RRR, no murmurs, rubs, or gallops, Lungs: Occ Wheeze upper chest Abdomen: Soft, nontender, nondistended, normal bowel sounds Ext: No edema or lesions Neuro: Awake, alert, oriented to person, place, time,and moves all. - Urinary Catheter Management Indwelling Urethral Catheter Cath placed during this visit: yes, but has since been removed by the nurse Urethral indwelling: Yes Reason for continuing: Decision to DC catheter Removal date: 12/28/17 Removal time: 14:00 Results - Labs CBC & Chem 7: 12/29/17 02:52 12/29/17 02:52 Laboratory Results - last 24 hr 12/28/17 12/28/17 12/29/17 17:01 21:03 02:52 WBC 9.0 RBC 4.36 Hgb 12.6 Hct 39.4 MCV 90.4 MCH 29.0 MCHC 32.1 RDW 14.9 Plt Count 185 MPV 9.6 Neut % (Auto) 74.9 H Lymph % (Auto) 16.4 [place] % (Auto) 8.4 H Eos % (Auto) 0.1 Baso % (Auto) 0.2 Neut # (Auto) 6.8 Lymph # (Auto) 1.5 [place] # (Auto) 0.8 Eos # (Auto) 0.0 Baso # (Auto) 0.0 WBC Differential . Differential Comment Auto diff final Sodium Potassium Chloride Carbon Dioxide Anion Gap BUN Creatinine Estimated GFR POC Glucose 160 H 135 H Random Glucose Calcium 12/29/17 12/29/17 12/29/17 02:52 07:38 11:53 WBC RBC Hgb Hct MCV MCH MCHC RDW Plt Count MPV Neut % (Auto) Lymph % (Auto) [place] % (Auto) Eos % (Auto) Baso % (Auto) Neut # (Auto) Lymph # (Auto) [place] # (Auto) Eos # (Auto) Baso # (Auto) WBC Differential Differential Comment Sodium 144 Potassium 3.8 Chloride 107 Carbon Dioxide 27.5 Anion Gap 10 BUN 38 H Creatinine 1.51 H Estimated GFR 41 L POC Glucose 126 H 145 H Random Glucose 119 H Calcium 8.2 L Microbiology 12/24/17 16:59 Blood - Peripheral Aerobic Blood Culture - Final No growth in 5 days 12/24/17 16:59 Blood - Peripheral Anaerobic Blood Culture - Final No growth in 5 days 12/24/17 16:50 Blood - Peripheral Aerobic Blood Culture - Final No growth in 5 days 12/24/17 16:50 Blood - Peripheral Anaerobic Blood Culture - Final No growth in 5 days 12/24/17 23:20 Sputum - Endotracheal Gram Stain - Final 12/24/17 23:20 Sputum - Endotracheal Sputum Culture - Final Proteus mirabilis Staphylococcus aureus Assessment and Plan - Assessment (1) COPD (chronic obstructive pulmonary disease) Code(s): J44.9 - Chronic obstructive pulmonary disease, unspecified Status: Acute (2) Respiratory failure with hypercapnia Code(s): J96.92 - Respiratory failure, unspecified with hypercapnia Status: Acute (3) Asthma Code(s): J45.909 - Unspecified asthma, uncomplicated Status: Acute (4) SATYA (obstructive sleep apnea) Code(s): G47.33 - Obstructive sleep apnea (adult) (pediatric) Status: Acute (5) Diabetes mellitus Code(s): E11.9 - Type 2 diabetes mellitus without complications Status: Acute (6) Chest pain Code(s): R07.9 - Chest pain, unspecified Status: Acute (7) Elevated troponin Code(s): R74.8 - Abnormal levels of other serum enzymes Status: Resolved (8) BRANDON (acute kidney injury) Code(s): N17.9 - Acute kidney failure, unspecified Status: Acute (9) CHF (congestive heart failure) Code(s): I50.9 - Heart failure, unspecified Status: Acute (10) Hyperkalemia Code(s): E87.5 - Hyperkalemia Status: Resolved (11) Hyperlipidemia Code(s): E78.5 - Hyperlipidemia, unspecified Status: Acute (12) COPD (chronic obstructive pulmonary disease) Code(s): J44.9 - Chronic obstructive pulmonary disease, unspecified Status: Acute - Plan 1. Cont O2 3 L. 2. Nebs qid , duoneb 3. IS at bedside q2h 4. Transfer to [facility] 5. Labs in am 6. Prednisone 20 mg BID and taper 7. D/C IV antibiotic and start Augmentin 500 mg TID
[2017-12-29] MEDS: Sodium Chloride 0.45 % Inj 1,000 ML IV.CONT SCH (16:14)
[2017-12-29] MEDS: Montelukast 10 MG Tablet PO SCH (17:08)
[2017-12-29] MEDS: Pantoprazole Inj 40 MG Vial IV.PUSH SCH (17:09)
[2017-12-29] MEDS: Amoxicillin/Clavulanate 500/125 MG Tablet PO SCH (21:47)
[2017-12-30] MEDS: Oral Hygiene Kit OROPHARYNG SCH ×3 (03:38→17:56)
[2017-12-30] MEDS: Amoxicillin/Clavulanate 500/125 MG Tablet PO SCH ×2 (05:35→13:07)
[2017-12-30 07:21] LABS: Baso % (Auto) 0.1 % (0.0-2.0); Eos % (Auto) 0.1 % (0.0-4.0); Hematocrit 41.3 % (35.0-46.0); Hemoglobin 13.2 gm/dL (11.6-15.3); Lymph # (Auto) 0.9 th/mm3 (1.0-4.8); Lymph % (Auto) 11.9 % (9.0-44.0); Mean Corpuscular HGB Conc 32.1 % (32.0-36.0); Mean Corpuscular Hemoglobin 29.4 pg (27.0-34.0); Mean Corpuscular Volume 91.7 fL (80.0-100.0); Mean Platelet Volume 9.8 fL (7.0-11.0); Mono # (Auto) 0.4 th/mm3 (0.0-0.9); Mono % (Auto) 5.3 % (0.0-8.0); Neut # (Auto) 6.5 th/mm3 (1.8-7.7); Neut % (Auto) 82.6 % (16.0-70.0); Platelet Count 192 th/mm3 (150-450); Red Cell Distribution Width 15.3 % (11.6-17.2); White Blood Count 7.9 th/mm3 (4.0-11.0)
[2017-12-30 07:51] LABS: Calcium 8.3 mg/dL (8.5-10.1); Carbon Dioxide 28.6 meq/L (21.0-32.0)
[2017-12-30] MEDS: Chlorhexidine 0.12% Oral Kit 15 ML UDC OROPHARYNG SCH (08:04)
[2017-12-30] MEDS: Insulin NovoLOG Aspart Correctional Sugar Inj SQ SCH ×3 (08:04→17:56)
[2017-12-30] MEDS: buPROPion 150 MG 12 HR Tablet PO SCH (08:09)
[2017-12-30] MEDS: predniSONE 20 MG Tablet PO SCH (08:10)
[2017-12-30] MEDS: amLODIPine 10 MG Tablet PO SCH (08:10)
[2017-12-30] MEDS: Enoxaparin Inj 40 MG/0.4 ML Syringe SQ SCH (08:10)
[2017-12-30] MEDS: Carboxymethylcellulose 0.5% Opth Drops 15 ML Bottle EACH EYE SCH (08:11)
--- NOTE | 2017-12-30 10:51 | P.PNFP ---
Subjective Interval history: Ms Prasad was seen on rounds this morning. Her mentation is much improved from previous exams. She is endorsing minimal right-sided discomfort. Shortness of breath is at her baseline. She denies any chest pain, nausea, vomiting, diarrhea. She endorses desire to go home today. <SebleMadiha Jennifer - 12/30/17 10:50> Results - Labs Result diagrams: 12/30/17 06:06 12/30/17 06:06 <Danielito Cast - 12/30/17 12:28> Abnormal lab results 12/29/17 12/29/17 12/30/17 Range/Units 17:07 20:05 06:06 Neut % (Auto) 82.6 H (16.0-70.0) % Lymph # (Auto) 0.9 L (1.0-4.8) th/mm3 BUN (7-18) mg/dL Creatinine (0.50-1.00) mg/dL Estimated GFR (>89) mL/min POC Glucose 126 H 156 H (68-110) mg/dl Random Glucose (74-106) mg/dL Calcium (8.5-10.1) mg/dL B-Natriuretic Peptide (0-100) pg/mL 12/30/17 12/30/17 12/30/17 Range/Units 06:06 06:06 07:44 Neut % (Auto) (16.0-70.0) % Lymph # (Auto) (1.0-4.8) th/mm3 BUN 33 H (7-18) mg/dL Creatinine 1.26 H (0.50-1.00) mg/dL Estimated GFR 50 L (>89) mL/min POC Glucose 130 H (68-110) mg/dl Random Glucose 135 H (74-106) mg/dL Calcium 8.3 L (8.5-10.1) mg/dL B-Natriuretic Peptide 610 H (0-100) pg/mL 12/30/17 Range/Units 11:59 Neut % (Auto) (16.0-70.0) % Lymph # (Auto) (1.0-4.8) th/mm3 BUN (7-18) mg/dL Creatinine (0.50-1.00) mg/dL Estimated GFR (>89) mL/min POC Glucose 155 H (68-110) mg/dl Random Glucose (74-106) mg/dL Calcium (8.5-10.1) mg/dL B-Natriuretic Peptide (0-100) pg/mL Short CBC 12/30/17 Range/Units 06:06 WBC 7.9 (4.0-11.0) th/mm3 Hgb 13.2 (11.6-15.3) gm/dL Hct 41.3 (35.0-46.0) % Plt Count 192 (150-450) th/mm3 [facility] [place] 12/30/17 06:06 Sodium 142 Potassium 4.0 Chloride 105 Carbon Dioxide 28.6 BUN 33 H Creatinine 1.26 H Calcium 8.3 L <Young,Danielito L - 12/30/17 12:28> Abnormal lab results 12/29/17 12/29/17 12/29/17 Range/Units 11:53 17:07 20:05 Neut % (Auto) (16.0-70.0) % Lymph # (Auto) (1.0-4.8) th/mm3 BUN (7-18) mg/dL Creatinine (0.50-1.00) mg/dL Estimated GFR (>89) mL/min POC Glucose 145 H 126 H 156 H (68-110) mg/dl Random Glucose (74-106) mg/dL Calcium (8.5-10.1) mg/dL B-Natriuretic Peptide (0-100) pg/mL 12/30/17 12/30/17 12/30/17 Range/Units 06:06 06:06 06:06 Neut % (Auto) 82.6 H (16.0-70.0) % Lymph # (Auto) 0.9 L (1.0-4.8) th/mm3 BUN 33 H (7-18) mg/dL Creatinine 1.26 H (0.50-1.00) mg/dL Estimated GFR 50 L (>89) mL/min POC Glucose (68-110) mg/dl Random Glucose 135 H (74-106) mg/dL Calcium 8.3 L (8.5-10.1) mg/dL B-Natriuretic Peptide 610 H (0-100) pg/mL 12/30/17 Range/Units 07:44 Neut % (Auto) (16.0-70.0) % Lymph # (Auto) (1.0-4.8) th/mm3 BUN (7-18) mg/dL Creatinine (0.50-1.00) mg/dL Estimated GFR (>89) mL/min POC Glucose 130 H (68-110) mg/dl Random Glucose (74-106) mg/dL Calcium (8.5-10.1) mg/dL B-Natriuretic Peptide (0-100) pg/mL Short CBC 12/30/17 Range/Units 06:06 WBC 7.9 (4.0-11.0) th/mm3 Hgb 13.2 (11.6-15.3) gm/dL Hct 41.3 (35.0-46.0) % Plt Count 192 (150-450) th/mm3 BMP 12/30/17 06:06 Sodium 142 Potassium 4.0 Chloride 105 Carbon Dioxide 28.6 BUN 33 H Creatinine 1.26 H Calcium 8.3 L <Madiha Pruett - 12/30/17 10:50> Physical Exam Vital signs: Vital Signs 12/29/17 13:00 12/29/17 14:00 12/29/17 15:00 Temperature Pulse Rate 94 H 100 H 86 Respiratory Rate 33 H 42 H 43 H Blood Pressure 140/80 128/82 120/69 Pulse Oximetry 92 L 95 93 L 12/29/17 15:35 12/29/17 16:00 12/29/17 16:01 Temperature 98.4 F Pulse Rate 88 91 H 91 H Respiratory Rate 20 42 H 47 H Blood Pressure 116/81 116/81 Pulse Oximetry 94 L 95 12/29/17 17:01 12/29/17 18:00 12/29/17 18:01 Temperature Pulse Rate 88 92 H 89 Respiratory Rate 30 H 48 H 35 H Blood Pressure 147/70 H 109/74 Pulse Oximetry 94 L 94 L 96 12/29/17 19:00 12/29/17 20:00 12/29/17 20:45 Temperature 97.9 F Pulse Rate 98 H 88 Respiratory Rate 45 H 37 H Blood Pressure 122/92 H 115/82 Pulse Oximetry 92 L 90 L 96 12/29/17 20:46 12/29/17 21:00 12/29/17 23:55 Temperature 98.6 F 97.8 F Pulse Rate 87 95 H 89 Respiratory Rate 22 19 20 Blood Pressure 128/77 138/92 H Pulse Oximetry 96 94 L 09/21/18 00:00 12/30/17 04:00 12/30/17 08:00 Temperature 97.1 F L 97.8 F Pulse Rate 89 77 82 Respiratory Rate 18 17 Blood Pressure 134/86 131/84 Pulse Oximetry 92 L 97 12/30/17 08:13 12/30/17 08:14 Temperature Pulse Rate 79 Respiratory Rate 16 Blood Pressure Pulse Oximetry 97 Intake & Output 12/29/17 12/30/17 12/30/17 18:59 06:59 18:59 Intake Total 560 / 560 0 / 0 Output Total 800 / 800 700 / 700 400 / 400 Balance -240 / -240 -700 / -700 -400 / -400 Weight 111.7 kg Intake: IV 560 / 560 1/2 Normal Saline Inj 1,000 ML 510 / 510 @ 42 mls/hr IV.CONT .[id number] [facility] Rx#:[id number] Zosyn 2.25 GM Premix 50 ML @ 50 / 50 100 mls/hr IV.SIG Q6H [facility] Rx#: [id number] Oral 0 / 0 Output: Urine 800 / 800 700 / 700 400 / 400 Other: # Voids 1 Date of Last Bowel Movement 12/29/17 12/29/17 12/30/17 # Bowel Movements 1 0 1 <Danielito Cast L - 12/30/17 12:28> Vital Signs 12/29/17 11:01 12/29/17 12:00 12/29/17 13:00 Temperature 97.8 F Pulse Rate 93 H 93 H 94 H Respiratory Rate 35 H 18 33 H Blood Pressure 137/86 129/89 140/80 Pulse Oximetry 94 L 92 L 92 L 12/29/17 14:00 12/29/17 15:00 12/29/17 15:35 Temperature Pulse Rate 100 H 86 88 Respiratory Rate 42 H 43 H 20 Blood Pressure 128/82 120/69 Pulse Oximetry 95 93 L 12/29/17 16:00 12/29/17 16:01 12/29/17 17:01 Temperature 98.4 F Pulse Rate 91 H 91 H 88 Respiratory Rate 42 H 47 H 30 H Blood Pressure 116/81 116/81 147/70 H Pulse Oximetry 94 L 95 94 L 12/29/17 18:00 12/29/17 18:01 12/29/17 19:00 Temperature Pulse Rate 92 H 89 98 H Respiratory Rate 48 H 35 H 45 H Blood Pressure 109/74 122/92 H Pulse Oximetry 94 L 96 92 L 12/29/17 20:00 12/29/17 20:45 12/29/17 20:46 Temperature 97.9 F Pulse Rate 88 87 Respiratory Rate 37 H 22 Blood Pressure 115/82 Pulse Oximetry 90 L 96 12/29/17 21:00 12/29/17 23:55 12/30/17 00:00 Temperature 98.6 F 97.8 F Pulse Rate 95 H 89 89 Respiratory Rate 19 20 Blood Pressure 128/77 138/92 H Pulse Oximetry 96 94 L 12/30/17 04:00 12/30/17 08:00 12/30/17 08:13 Temperature 97.1 F L 97.8 F Pulse Rate 77 82 Respiratory Rate 18 17 Blood Pressure 134/86 131/84 Pulse Oximetry 92 L 97 97 12/30/17 08:14 Temperature Pulse Rate 79 Respiratory Rate 16 Blood Pressure Pulse Oximetry Intake & Output 12/29/17 12/30/17 12/30/17 18:59 06:59 18:59 Intake Total 560 / 560 0 / 0 Output Total 800 / 800 700 / 700 400 / 400 Balance -240 / -240 -700 / -700 -400 / -400 Weight 111.7 kg Intake: IV 560 / 560 1/2 Normal Saline Inj 1,000 ML 510 / 510 @ 42 mls/hr IV.CONT .[id number] [facility] Rx#:[id number] Zosyn 2.25 GM Premix 50 ML @ 50 / 50 100 mls/hr IV.SIG Q6H [facility] Rx#: [id number] Oral 0 / 0 Output: Urine 800 / 800 700 / 700 400 / 400 Other: # Voids 1 Date of Last Bowel Movement 12/29/17 12/29/17 12/30/17 # Bowel Movements 1 0 1 <Madiha Pruett E - 12/30/17 10:50> Narrative: General: Sitting up on the side of the bed, comfortable. No acute distress CV: RRR, no murmurs, rubs, or gallops, peripheral pulses intact, normal capillary refill Lungs: CTAB, no wheezing, rales, or rhonchi, no consolidations heard Abdomen: Soft, nontender, nondistended, bowel sounds present Ext: No edema or cyanosis Neuro: Awake, alert, oriented to person, place, time, situation <Madiha Pruett 12/30/17 10:50> - Urinary Catheter Management Indwelling Urethral Catheter Cath placed during this visit: no <Danielito Cast - 12/30/17 12:28> yes, but has since been removed by the nurse <Madiha Pruett 12/30/17 10:50> Urethral indwelling: Yes <Madiha Pruett 12/30/17 10:50> Reason for continuing: Decision to DC catheter <Madiha Pruett - 12/30/17 10:50 > Removal date: 12/28/17 <Madiha Pruett 12/30/17 10:50> Removal time: 14:00 <Madiha Pruett 12/30/17 10:50> Assessment and Plan - Assessment (1) Pneumonia Code(s): J18.9 - Pneumonia, unspecified organism Status: Acute (2) CHF (congestive heart failure) Code(s): I50.9 - Heart failure, unspecified Status: Acute (3) COPD (chronic obstructive pulmonary disease) Code(s): J44.9 - Chronic obstructive pulmonary disease, unspecified Status: Acute (4) BRANDON (acute kidney injury) Code(s): N17.9 - Acute kidney failure, unspecified Status: Acute (5) Diabetes type 2, controlled Code(s): E11.9 - Type 2 diabetes mellitus without complications Status: Acute (6) Hyperlipidemia Code(s): E78.5 - Hyperlipidemia, unspecified Status: Acute (7) Hypertension Code(s): I10 - Essential (primary) hypertension Status: Acute (8) Depression Code(s): F32.9 - Major depressive disorder, single episode, unspecified Status : Acute (9) Nutrition, metabolism, and development symptoms Code(s): R63.8 - Other symptoms and signs concerning food and fluid intake Status: Acute <Danielito Cast - 12/30/17 12:28> (1) Pneumonia Code(s): J18.9 - Pneumonia, unspecified organism Status: Acute Plan: Much improved clinically. Proteus and staph, rangel-sensitive detected. -Pulmonology consulted--Dr Vicente * Patient transitioned to Augmentin yesterday, today will be day 10 of antibiotics * Recommended taper of prednisone -Pulmicort scheduled, albuterol as needed. History: developed acute hypercapnic hypoxemic respiratory failure on day 2 of hospital stay, requiring intubation and mechanical ventilation. Now extubated and breathing well on her own, respiratory status is back to her baseline. Contributing factors include COPD, CHF with fluid overload, and possible pneumonia. (2) CHF (congestive heart failure) Code(s): I50.9 - Heart failure, unspecified Status: Acute Plan: -Patient's weight down -No crackles or edema on exam -Bumex 1 mg IV daily - Continue to monitor I's/O's and daily weights - Continue CHF medications -P.o. fluid intake to 1.5 L per day History: -Echo with reduced LV systolic function and EF 40-45%, normal LV size, wall thickness upper limit normal, no wall abnormalities; RV not well visualized; normal left and right atria. -CXR 12/24 showing cardiomegaly with pulmonary vascular engorgement and bilateral pulmonary infiltrates with pulm edema suspected -BNP elevated (3) COPD (chronic obstructive pulmonary disease) Code(s): J44.9 - Chronic obstructive pulmonary disease, unspecified Status: Acute Plan: On 2 L of oxygen at home at baseline -Pulmicort 0.5 neb q12h -DuoNebs, albuterol as needed -Continue 20 mg twice daily today, discharged with 1 day of 20 mg once daily and then resume home daily dosing of 5 mg prednisone daily (4) BRANDON (acute kidney injury) Code(s): N17.9 - Acute kidney failure, unspecified Status: Acute Plan: -Creatinine mildly elevated at 1.17 on admission, trended down today after decreasing diuretic dosing, close to patient's baseline creatinine -Likely an element chronic kidney disease in the setting of diabetes -Avoid nephrotoxic agents (5) Diabetes type 2, controlled Code(s): E11.9 - Type 2 diabetes mellitus without complications Status: Acute Plan: -Medium level sliding scale insulin -Diabetic diet (6) Hyperlipidemia Code(s): E78.5 - Hyperlipidemia, unspecified Status: Acute Plan: -Continue home atorvastatin (7) Hypertension Code(s): I10 - Essential (primary) hypertension Status: Acute Plan: -Mostly well-controlled -Continue home amlodipine 10 mg PO daily (8) Depression Code(s): F32.9 - Major depressive disorder, single episode, unspecified Status : Acute Plan: -Continue home Wellbutrin 150mg PO BID (9) Nutrition, metabolism, and development symptoms Code(s): R63.8 - Other symptoms and signs concerning food and fluid intake Status: Acute Plan: Fluids: PO fluids, limit to 1.5 L daily Dietary: Diabetic diet Electrolytes: Monitor daily and replace as needed GI PPx: Discontinue protonix DVT prophylaxis: SCDs and Lovenox <Madiha Pruett 12/30/17 10:36> - Assessment and Plan 72 YO AAF w/Hx COPD, CHF, DM intubated, sedated and on ventilator with encephalopathy 2/2 metabolic causes and hypercapnia <Madiha Pruett 12/30/17 10:50> Discussed Condition With: Dr Cast <Madhia Pruett 12/30/17 10:50> - Attending Attestation The exam, history, and the medical decision-making described in the above note were completed with the assistance of the resident physician. I reviewed and agree with the findings presented. I attest that I had a [id number] encounter with the patient on the same day, and personally performed and documented my assessment and findings in the medical record. Patient seen and examined with resident and medical student this morning. Patient is sitting up on the edge of the bed, in good spirits. Reports her breathing is back to normal. Reports minimal pain this morning. Had a bowel movement this morning. Afebrile and hemodynamically stable. We discussed discharge planning with her at length. She will follow up with her wastewater design engineer Dr. Vicente for her COPD. She will follow closely with PCP. We discussed her CT findings at length, including finding of renal mass concerning for possible renal cell carcinoma. We stressed the importance of following up on this with urologist, the referral for which we will make. She tells us she was already aware of this in the past. She will go home with home health care and resume physical therapy and occupational therapy. She already has oxygen at home, and has walkers at home to help her get around. She reports good social support at home. Please note: This note mentions "sedated and on ventilator with encephalopathy 2/2 metabolic causes and hypercapnia". This portion of the note was carried forward and overlooked before the note was signed. In fact, she is no longer intubated or mechanically ventilated as described in detail in the rest of the note. <Danielito Cast - 12/30/17 12:28> <Madiha Pruett E - Last Filed: 12/30/17 10:36> (5) Diabetes type 2, controlled Qualifiers: Diabetes mellitus termite technician insulin use: without long-term use Diabetes mellitus complication status: without complication Qualified Code(s): E11.9 - Type 2 diabetes mellitus without complications <Danielito Cast - Filed: 12/30/17 12:28> (5) Diabetes type 2, controlled Qualifiers: Diabetes mellitus long-term insulin use: without termite technician use Diabetes mellitus complication status: without complication Qualified Code(s): E11.9 - Type 2 diabetes mellitus without complications <Madiha Pruett - Last Filed: 12/30/17 10:36> (5) Diabetes type 2, controlled Qualifiers: Diabetes mellitus termite technician insulin use: without termite technician use Diabetes mellitus complication status: without complication Qualified Code(s): E11.9 - Type 2 diabetes mellitus without complications <Danielito Cast - Last Filed: 12/30/17 12:28> (5) Diabetes type 2, controlled Qualifiers: Diabetes mellitus termite technician insulin use: without termite technician use Diabetes mellitus complication status: without complication Qualified Code(s): E11.9 - Type 2 diabetes mellitus without complications
--- NOTE | 2017-12-30 10:54 | P.DCO ---
- Physical Therapy Order: Evaluate and treat, Strength and gait training - Home Health Nursing Order: Medical education, Signs/symptoms of disease process, CHF education, Nursing assessment with vital signs - Home Health Aide Order: To assist in: Bathing and personal care - Case Management Consult Yes - Certification I have seen patient Xiomara Prasad on 12/30/17. My clinical findings support the need for the requested home health care services because: Limited mobility due to disease progression, Patient has SOB, Deconditioned with increased weakness, High risk of falls I certify that my clinical findings support that this patient is homebound because: Hx COPD - exertion dyspnea/weakness, Unsteady gait/balance, Poor cardiac reserve
[2017-12-30 14:06] VITALS: BP 141/81; RESP 17; TEMP 97.3; O2SAT 95
--- NOTE | 2017-12-30 14:56 | P.DS ---
Date of admission: 12/25/17 09:38 Primary care physician: UNKNOWN Brief History from admission: Ms. Prasad is a 72yof who presents for evaluation of R side/flank pain. Pain started November 06 with minimal "easing up" since. Pain worse with movement and deep breathing. Nothing seems to make it better. No association with food. Patient was seen at [facility] last night, CT was performed with no evidence of PE and diagnosed with MSK pain. Reports that this morning she did not "feel well". Vomited once. Confused about place and time today. Incontinent of urine, she reports this is a chronic issue and has not changed recently. Denies hematuria, dysuria. Reports subjective fever and chills. Leg swelling and SOB worsening over the past year, no acute worsening Requiring 2L O2 at home at all times. Laser Printing Operator: Dr Ramon PCP: Dr. Fernandez Casting Machine Operator: Dr Swartz PMH: CHF Cataracts DM HTN Hyperlipidemia COPD Meds: SSI (home health) ASA Amlodipine 10mg Bumex 4mg Singular 10mg Buproprion Meloxicam Pramipexole Simvastatin Prednisone 5mg daily Advair Ventolin Duoneb FMH: Non contributory Sx: Hysterectomy Bunion surgery Social: Tobacco never smoker EtOH none Recreational Drugs none DS: Diagnosis - Discharge Diagnosis (1) Pneumonia Status: Acute (2) CHF (congestive heart failure) Status: Acute (3) COPD (chronic obstructive pulmonary disease) Status: Acute (4) BRANDON (acute kidney injury) Status: Acute (5) Diabetes type 2, controlled Status: Acute (6) Hyperlipidemia Status: Acute (7) Hypertension Status: Acute (8) Depression Status: Acute (9) Nutrition, metabolism, and development symptoms Status: Acute DS: Medications - Discharge Medications Prescriptions: prednisone 20 mg PO DAILY #1 tab DS: Summary Hospital Course: Ms Prasad was admitted to the hospital on 12/23 with right flank pain and nausea. ACS workup was negative, patient was seen at another hospital the night before with negative CTA. She was admitted for presumed nephrolithiasis. 12/24 patient was requiring increased oxygen, halicat was called due to AMS. Patient was transferred to critical care for increasing respiratory failure. Intubation on 12/24. She was started on empiric antibiotics for presumed pneumonia. Repeat CT of the abdomen showed questionable renal mass as well as bibasilar consolidation of the lungs. She was extubated on 12/27. She continued to improve both mentation reynoso as well as respiratory. She had 10 days of antibiotics. On 12/30 she was back to her baseline breathing level and endorsing desire to go home. Patient had home health care at home prior to admission. Patient was discharged on 12/30 home with home health care. - Time Spent with Patient Total time spent providing and/or coordinating discharge services: Less than 30 minutes - Quality: VTE Deep Vein Thrombosis/Pulmonary Embolism Present on Admission: No Exam Vital signs: Vital Signs 12/29/17 15:00 12/29/17 15:35 12/29/17 16:00 Temperature 98.4 F Pulse Rate 86 88 91 H Respiratory Rate 43 H 20 42 H Blood Pressure 120/69 116/81 Pulse Oximetry 93 L 94 L 12/29/17 16:01 12/29/17 17:01 12/29/17 18:00 Temperature Pulse Rate 91 H 88 92 H Respiratory Rate 47 H 30 H 48 H Blood Pressure 116/81 147/70 H Pulse Oximetry 95 94 L 94 L 12/29/17 18:01 12/29/17 19:00 12/29/17 20:00 Temperature 97.9 F Pulse Rate 89 98 H 88 Respiratory Rate 35 H 45 H 37 H Blood Pressure 109/74 122/92 H 115/82 Pulse Oximetry 96 92 L 90 L 12/29/17 20:45 12/29/17 20:46 12/29/17 21:00 Temperature 98.6 F Pulse Rate 87 95 H Respiratory Rate 22 19 Blood Pressure 128/77 Pulse Oximetry 96 96 12/29/17 23:55 12/30/17 00:00 12/30/17 04:00 Temperature 97.8 F 97.1 F L Pulse Rate 89 89 77 Respiratory Rate 20 18 Blood Pressure 138/92 H 134/86 Pulse Oximetry 94 L 92 L 12/30/17 08:00 12/30/17 08:13 12/30/17 08:14 Temperature 97.8 F Pulse Rate 82 79 Respiratory Rate 17 16 Blood Pressure 131/84 Pulse Oximetry 97 97 12/30/17 12:00 Temperature 97.3 F L Pulse Rate 83 Respiratory Rate 17 Blood Pressure 141/81 H Pulse Oximetry 95 Intake & Output 12/29/17 12/30/17 12/30/17 18:59 06:59 18:59 Intake Total 560 / 560 0 / 0 Output Total 800 / 800 700 / 700 400 / 400 Balance -240 / -240 -700 / -700 -400 / -400 Weight 111.7 kg Intake: IV 560 / 560 1/2 Normal Saline Inj 1,000 ML 510 / 510 @ 42 mls/hr IV.CONT .[id number] [facility] Rx#:[id number] Zosyn 2.25 GM Premix 50 ML @ 50 / 50 100 mls/hr IV.SIG Q6H [facility] Rx#: [id number] Oral 0 / 0 Output: Urine 800 / 800 700 / 700 400 / 400 Other: # Voids 1 Date of Last Bowel Movement 12/29/17 12/29/17 12/30/17 # Bowel Movements 1 0 1 Results Procedures completed during hospitalization: Intubation 12/24 Labs on day of discharge: Labs from last 24 hours 12/30/17 12/30/17 12/30/17 11:59 07:44 06:06 WBC RBC Hgb Hct MCV MCH MCHC RDW Plt Count MPV Neut % (Auto) Lymph % (Auto) [place] % (Auto) Eos % (Auto) Baso % (Auto) Neut # (Auto) Lymph # (Auto) [place] # (Auto) Eos # (Auto) Baso # (Auto) WBC Differential Differential Comment Sodium Potassium Chloride Carbon Dioxide Anion Gap BUN Creatinine Estimated GFR POC Glucose 155 H 130 H Random Glucose Calcium B-Natriuretic Peptide 610 H 12/30/17 12/30/17 12/29/17 06:06 06:06 20:05 WBC 7.9 RBC 4.50 Hgb 13.2 Hct 41.3 MCV 91.7 MCH 29.4 MCHC 32.1 RDW 15.3 Plt Count 192 MPV 9.8 Neut % (Auto) 82.6 H Lymph % (Auto) 11.9 [place] % (Auto) 5.3 Eos % (Auto) 0.1 Baso % (Auto) 0.1 Neut # (Auto) 6.5 Lymph # (Auto) 0.9 L [place] # (Auto) 0.4 Eos # (Auto) 0.0 Baso # (Auto) 0.0 WBC Differential . Differential Comment Auto diff final Sodium 142 Potassium 4.0 Chloride 105 Carbon Dioxide 28.6 Anion Gap 8 BUN 33 H Creatinine 1.26 H Estimated GFR 50 L POC Glucose 156 H Random Glucose 135 H Calcium 8.3 L B-Natriuretic Peptide 12/29/17 17:07 WBC RBC Hgb Hct MCV MCH MCHC RDW Plt Count MPV Neut % (Auto) Lymph % (Auto) [place] % (Auto) Eos % (Auto) Baso % (Auto) Neut # (Auto) Lymph # (Auto) [place] # (Auto) Eos # (Auto) Baso # (Auto) WBC Differential Differential Comment Sodium Potassium Chloride Carbon Dioxide Anion Gap BUN Creatinine Estimated GFR POC Glucose 126 H Random Glucose Calcium B-Natriuretic Peptide - Impressions ITS Impressions Gallbladder Ultrasound 12/23/17 07:09 CONCLUSION: 1. Shadowing from the gallbladder most characteristic of a large calcified gallstone. 2. Hyperechoic heterogeneous hepatic echotexture characteristic of hepatocellular disease. 3. No evidence of biliary obstruction. Abdomen X-Ray 12/24/17 00:00 CONCLUSION: Negative examination. No discrete calculi. Abdomen/Pelvis CT 12/25/17 00:00 CONCLUSION: 1. 8 mm renal calculus in the central right renal pelvis noted on 12/23/2017 CT exam is no longer visualized and may have passed. No hydronephrosis. 2. Additional ill-defined bilateral medullary calcifications are likely obscured by contrast in today's exam. 3. 3.4 x 3.9 cm enhancing solid mass in the anterior inferior pole of the right kidney concerning for renal cell carcinoma until proven otherwise. 4. Prominent colonic diverticulosis without evidence for diverticulitis. 5. Large ventral abdominal hernia containing portions of normal-appearing large and small bowel. No evidence for bowel obstruction. 6. Cholelithiasis. 7. Progressive bibasilar airspace consolidation with new trace right pleural effusion. Although findings may reflect atelectasis, consider aspiration in the appropriate clinical setting. 8. 2.8 cm left adrenal adenoma. Subcentimeter right adrenal mass with indeterminate density. This can be further characterized with adrenal mass CT/ MRI exam as clinically appropriate on an outpatient basis. 9. Additional ancillary findings, as above. Chest X-Ray 12/27/17 06:00 CONCLUSION: No significant change. Discharge Plan - Discharge Disposition Patient Disposition: Disch W/Home Health Service - Discharge Condition Condition: Stable - Discharge Order Discharge Orders: Discharge Order (Routine); Ordered 12/30/17 Ordered By: Madiha E Seble - Discharge Details Anticipated Discharge Date: 12/23/17 - Physicians Team Primary Care Provider: UNKNOWN, Attending Provider: Danielito Cast Other Providers: Payam Larry DO ; Jesse Craig MD ; Mau Peña MD ; John Paul Botello MD ; [facility] ; [facility]
[2017-12-30 17:27] VITALS: PULSE 102
[2017-12-30] MEDS: Sodium Chloride 0.45 % Inj 1,000 ML IV.CONT SCH (17:56)
[2017-12-30] MEDS: Pantoprazole Inj 40 MG Vial IV.PUSH SCH (17:57)
== END 2017-12-30 18:16 | disposition home health service (06) ==
LOC: NEPC 05:19 → INTOOBSV 11:35 → NEDA 11:35 → N04 15:03 → HIMC 12-24 15:19 → N04 12-29 21:06
PROVIDERS: ADMIT Family Medicine; ATTEND Family Medicine